=== PATIENT | male | born 1940 | race Caucasian/White ===

== ENCOUNTER 2020-04-18 14:44 | Inpatient (IN) | payer MEDICARE ==
--- NOTE | 2020-04-18 15:41 | ED ---
Recheck HPI - General Source: patient Mode of arrival: EMS Limitations: physical limitation <Alicia Kimble - Last Filed: 04/18/20 18:19> <Moe Jamesah Mercedez - Last Filed: 04/19/20 13:04> - General Chief Complaint: Recheck/Abnormal Lab/Rx Stated Complaint: Acute renal failure Time Seen by Provider: 04/18/20 14:47 - History of Present Illness Initial Comments: 79-year-old male presenting as transfer for acute kidney injury, elevated troponin from [facility]. Patient states initially presented to [facility] for pain all over. He states is mostly is his legs and this is occurred before. He states it occurs in episodes. Denies a low back pain urinary retention or water, bowel incontinence. Patient denies a loss of sensation of the lower legs he states that they're not weak but they're very painful when he walks. Patient denies a coolness or pallor of the extremities. He denies any swelling he denies any chest pain shortness of breath nausea vomiting abdominal pain. Patient did have a CT of his chest abdomen pelvis at [place] which revealed no acute findings. Patient was found to have a white count of 16.4 hemoglobin 12.7 platelets 252 glucose 111 creatinine is 2.9, GFR of 21 calcium 8.3 anion gap of 16 CO2 14 with normal liver studies. Troponin 0.10. Urinalysis was not concerning for infection. Patient was placed on bicarb and dextrose drip? (Alicia Kimble) - Related Data Home Medications Medication Instructions Recorded Confirmed Albuterol Sulfate [Ventolin HFA] 2 puff INHALATION RT-QID PRN 04/18/20 04/18/20 Atorvastatin Calcium [Lipitor] 20 mg PO HS 04/18/20 04/18/20 Carvedilol [Coreg] 6.25 mg PO BID 04/18/20 04/18/20 Gabapentin [Neurontin] 200 mg PO TID PRN 04/18/20 04/18/20 Lisinopril [Zestril] 10 mg PO DAILY 04/18/20 04/18/20 Umeclidinium Brm/Vilanterol Tr 1 puff INHALATION RT-DAILY 04/18/20 04/18/20 [Anoro Ellipta 62.5-25 Mcg INH] amLODIPine [Norvasc] 10 mg PO DAILY 04/18/20 04/18/20 Allergies Allergy/AdvReac Type Severity Reaction Status Date / Time Penicillins Allergy Unknown Verified 04/18/20 15:57 Sulfa (Sulfonamide Allergy Unknown Verified 04/18/20 15:57 Antibiotics) Review of Systems ROS Other: All systems not noted in ROS Statement are negative. <Alicia Kimble - Last Filed: 04/18/20 18:19> ROS Other: All systems not noted in ROS Statement are negative. <Janine James Mercedez - Last Filed: 04/19/20 13:04> ROS Statement: Those systems with pertinent positive or pertinent negative responses have been documented in the HPI. Past Medical History Past Medical History: COPD, CVA/TIA, Hyperlipidemia, Hypertension, Renal Disease Additional Past Medical History / Comment(s): chronic back pain History of Any Multi-Drug Resistant Organisms: None Reported Past Surgical History: Unable to Obtain Past Psychological History: No Psychological Hx Reported Smoking Status: Current every day smoker Past Alcohol Use History: None Reported Past Drug Use History: None Reported <Alicia Kimble - Last Filed: 04/18/20 18:19> General Exam Limitations: physical limitation <Alicia Kimble - Last Filed: 04/18/20 18:19> - General Exam Comments Initial Comments: General: The patient is awake and alert, in no distress Eye: +3 mm pupils are equal, round and reactive to light, extra-ocular movements are intact. No nystagmus. There is normal conjunctiva bilaterally. No signs of icterus. Ears, nose, mouth and throat: There are moist mucous membranes and no oral lesions. Neck: The neck is supple, there is no tenderness or JVD. Cardiovascular: There is a regular rate and rhythm. No murmur, rub or gallop is appreciated. Respiratory: Lungs are clear to auscultation, respirations are non-labored, breath sounds are equal. No wheezes, stridor, rales, or rhonchi. Gastrointestinal: Soft, non-distended, non-tender abdomen without masses or organomegaly noted. There is no rebound or guarding present. Musculoskeletal: No current pain in the LE b/l. No LE edema. Normal ROM, no tenderness. Strength 5/5. Sensation intact. Radial and DP pulses equal bilaterally 2+. Neurological: A&O x 3. CN II-XII intact, There are no obvious motor or sensory deficits. Coordination appears grossly intact. Speech is normal. Skin: Skin is warm and dry and no rashes or lesions are noted. Psychiatric: Cooperative, appropriate mood & affect, normal judgment. (Alicia Kimble) Course Vital Signs 04/18/20 04/18/20 14:54 17:27 Temperature 97.4 F L 97.8 F Pulse Rate 85 74 Respiratory 16 16 Rate Blood Pressure 152/82 129/74 O2 Sat by Pulse 96 96 Oximetry Medical Decision Making <Alicia Kimble - Last Filed: 04/18/20 18:19> - Lab Data Result diagrams: 04/19/20 09:09 04/19/20 09:09 <Janine James - Last Filed: 04/19/20 13:04> - Medical Decision Making Trop remained within similar values/decreased slightly. Concern for cardiorenal syndrome with elevated BNP. Favoring towards renal dysfunction. Will lightly hydrate patient as patietn shows no evidence of effusion on CXR or extremity f indings. Patient will be admitted for further consultation and monit oring/treatment. Nicol James agreeable to care plan and admission. (Alicia Kimble) I was available for consultation in the emergency department. The history and physical exam were done by the midlevel provider. I was consulted for this patients care. I reviewed the case with the midlevel provider and based on their presentation of the patient, I agree with the assessment, medical decision making and plan of care as documented. I reviewed the patients chart and evaluated him myself. Discussed patients care with Dr. Robbins for admission. Chart was dictated using [employer] dictation software. Attempts were made to correct any dictation errors however some typographical errors may persist. Patient was seen during a national state of emergency due to the Covid-19 pandemic. (Janine James) - Lab Data Lab Results 04/18/20 04/18/20 04/18/20 Range/Units 15:51 16:18 16:18 Creatine Kinase 55 (55-170) U/L Troponin I 0.095 H* (0.000-0.034) ng/mL NT-Pro-B Natriuret Pep 07200 pg/mL Disposition Is patient prescribed a controlled substance at d/c from ED?: No Time of Disposition: 15:56 Decision to Admit Reason: Admit from EC Decision Date: 04/18/20 Decision Time: 15:56 <Alicia Kimble - Last Filed: 04/18/20 18:19> <Janine James - Last Filed: 04/19/20 13:04> Clinical Impression: NELI (acute kidney injury), Acidosis, Bilateral leg pain, Chronic pain, Elevated troponin Disposition: ADMITTED IP TO THIS HOSP Condition: Stable
[2020-04-18] MEDS ORDERED: NALOXONE 0.4 MG/ML 1 ML VIAL IV PRN (15:43)
--- NOTE | 2020-04-18 17:25 | XR ---
EXAMINATION TYPE: XR chest 1V portable DATE OF EXAM: 04/18/2020 COMPARISON: NONE HISTORY: Leg pain TECHNIQUE: 2 views FINDINGS: Heart is normal in size. There is no heart failure. Costophrenic angles are clear. There ar e no hilar masses. Bony thorax is intact. IMPRESSION: No active cardiopulmonary disease.
[2020-04-18] MEDS: SODIUM CHLORIDE 0.9% 1,000 ML IV SCH (17:54)
[2020-04-18] MEDS ORDERED: HYDROcodone/APAP 5-325MG 1 EACH TAB PO PRN (18:23)
[2020-04-18] MEDS ORDERED: ACETAMINOPHEN TAB 325 MG TAB PO PRN (18:23)
[2020-04-18] MEDS ORDERED: ALBUTEROL NEBULIZED 2.5 MG/3 ML INHALATION PRN (18:25)
--- NOTE | 2020-04-18 18:39 | P.HPIM ---
History of Present Illness H&P Date: 04/18/20 79-year-old male with PMH of CAD, COPD, dyslipidemia, chronic kidney disease, hypertension, TIA initially presented to [facility] for generalized pain. His son is at bedside and providing majority of the history. Son reports the patient had similar episode 8 months ago with generalized pain and weakness which improved after 1 week. Patient states his pain is localized to his lower extremities described as myalgias. He denies any headaches, lower extremity edema, nausea or vomiting, fever or chills, cough, chest pain, shortness of breath, palpitations, changes in urination or bowel habits. No changes in appetite or weight. He underwent extensive evaluation in the ED at [facility]. His blood pressure is elevated at 158/93. Urinalysis was relatively benign. Lactic acid was negative. VBG showed pH of 7.03. His bicarb was 14. His BUN was 41, creatinine of 2.9. Patient also had a leukocytosis of 16.4. [place] CT was done which showed no acute findings, large bowel wall thickening. Patient was started on bicarb drip and transferred to [facility] for further workup. He had elevated troponins of 0.1. Patient is admitted for worsening renal failure and elevated troponins with cardiology and nephrology on consult. Review of Systems Pertinent positives and negatives as discussed in HPI, a complete review of systems was performed and all other systems are negative. Past Medical History Past Medical History: COPD, CVA/TIA, Hyperlipidemia, Hypertension, Renal Disease Additional Past Medical History / Comment(s): chronic back pain History of Any Multi-Drug Resistant Organisms: None Reported Past Surgical History: Unable to Obtain Past Psychological History: No Psychological Hx Reported Smoking Status: Current every day smoker Past Alcohol Use History: None Reported Past Drug Use History: None Reported Medications and Allergies Home Medications Medication Instructions Recorded Confirmed Type Albuterol Sulfate [Ventolin HFA] 2 puff INHALATION RT-QID PRN 04/18/20 04/18/20 History Atorvastatin Calcium [Lipitor] 20 mg PO HS 04/18/20 04/18/20 History Carvedilol [Coreg] 6.25 mg PO BID 04/18/20 04/18/20 History Gabapentin [Neurontin] 200 mg PO TID PRN 04/18/20 04/18/20 History Lisinopril [Zestril] 10 mg PO DAILY 04/18/20 04/18/20 History Umeclidinium Brm/Vilanterol Tr 1 puff INHALATION RT-DAILY 04/18/20 04/18/20 History [Anoro Ellipta 62.5-25 Mcg INH] amLODIPine [Norvasc] 10 mg PO DAILY 04/18/20 04/18/20 History Allergies Allergy/AdvReac Type Severity Reaction Status Date / Time Penicillins Allergy Unknown Verified 04/18/20 15:57 Sulfa (Sulfonamide Allergy Unknown Verified 04/18/20 15:57 Antibiotics) Physical Exam Vitals: Vital Signs Temp Pulse Resp BP Pulse Ox 04/18/20 17:27 97.8 F 74 16 129/74 96 04/18/20 14:54 97.4 F L 85 16 152/82 96 Intake and Output 04/18/20 04/18/20 04/18/20 06:59 14:59 22:59 Other: Weight 50.802 kg General: [non toxic], [no distress], [appears at stated age] Derm: [warm], [dry] Head: [atraumatic], [normocephalic], [symmetric] Eyes: [EOMI], [no lid lag], [anicteric sclera] Mouth: [no lip lesion], [mucus membranes moist] Cardiovascular: [S1S2 reg], [no murmur], [positive posterior tibial pulse bilateral], Lungs: [CTA bilateral], [no rhonchi, no rales] , [no accessory muscle use] Abdominal: [soft], [ nontender to palpation], [no guarding], [no appreciable organomegaly] Ext: [no gross muscle atrophy], [no edema], [no contractures] Neuro: [ CN II-XI grossly intact], [no focal neuro deficits] Psych: [Alert], [oriented], [appropriate affect] Results Labs: Abnormal Lab Results - Last 24 Hours (Table) 04/18/20 Range/Units 15:51 Troponin I 0.095 H* (0.000-0.034) ng/mL Assessment and Plan Assessment: Troponin elevation Acute kidney injury on chronic kidney disease with metabolic acidosis Leukocytosis Hypertension COPD History of CAD/TIA Patient with elevated troponins of 0.1, 0.095 on repeat. Likely troponin leak from acute kidney injury. Chest x-ray is negative. Plans: Trend troponin/EKG to rule out ACS. Telemetry monitoring. Continue Lipitor. Start aspirin 81 mg by mouth daily. Follow-up echocardiogram. Follow-up cardiology consultation. Creatinine 2.9, bicarb 14. Post bicarb drip. Plans: Obtain renal ultrasound. Repeat BMP tomorrow morning. Avoid nephrotoxins. Patient is a leukocytosis of 16.5. Unknown etiology. No obvious signs of infection. Plans: Continue to monitor. Repeat CBC tomorrow morning. BP 129/74. Plans: Continue amlodipine and Coreg. Monitor vitals, adjust medications if necessary. Stable. Plans: Albuterol inhaler as needed. Continue formoterol. Plans: Continue aspirin and Lipitor. DVT prophylaxis: [Heparin] Discussed with: [Patient and son] Anticipated discharge: [2-3 days] Anticipated discharge place: [Home] A total of [45] minutes was spent on the care of this complex patient more than 50% of the time was spent in counseling and care coordination. Patient names his son Ghassan decision maker if he can't make decisions for himself. Patient would like to be no code. CODE STATUS was discussed with son at bedside.
[2020-04-18] MEDS: NICOTINE 21MG/24HR PATCH TRANSDERM SCH (18:58)
[2020-04-18] MEDS: carvediloL 6.25 MG TAB PO SCH (19:33)
[2020-04-18] MEDS: HEPARIN SODIUM,PORCINE 5,000 UNIT/ML 1 ML VIAL SQ SCH (19:34)
[2020-04-18] MEDS: ATORVASTATIN 20 MG TAB PO SCH (19:34)
[2020-04-18] MEDS: IPRATROPIUM 0.5 MG/2.5 ML NEBU INHALATION SCH (19:45)
[2020-04-18] MEDS: FORMOTEROL FUMARATE 20 MCG/2 ML NEBU INHALATION SCH (19:45)
--- NOTE | 2020-04-18 22:29 | US ---
EXAMINATION TYPE: US kidneys/renal and bladder DATE OF EXAM: 04/18/2020 COMPARISON: NONE CLINICAL HISTORY: kidney injury. abnormal enzymes, gianna EXAM MEASUREMENTS: Right Kidney: 8.3 x 3.1 x 4.4 cm Left Kidney: not seen Right Kidney: small in size, midpole cyst seen = 1.3cm Left Kidney: unable to visualize due to gas even after rolling patient RLD Bladder: wnl IMPRESSION: Urinary bladder is sonolucent. Right kidney shows some cortical thinning. There is small cortical cys t. Left kidney was not evaluated. Right kidney shows no sign of obstruction.
[2020-04-19] MEDS: carvediloL 6.25 MG TAB PO SCH ×2 (06:25→17:15)
[2020-04-19] MEDS: IPRATROPIUM 0.5 MG/2.5 ML NEBU INHALATION SCH ×4 (07:26→19:01)
[2020-04-19] MEDS: FORMOTEROL FUMARATE 20 MCG/2 ML NEBU INHALATION SCH ×2 (07:26→19:01)
[2020-04-19] MEDS: amLODIPine 10 MG TAB PO SCH (08:10)
[2020-04-19] MEDS: HEPARIN SODIUM,PORCINE 5,000 UNIT/ML 1 ML VIAL SQ SCH ×2 (08:10→20:26)
[2020-04-19] MEDS: NICOTINE 21MG/24HR PATCH TRANSDERM SCH (08:10)
[2020-04-19] MEDS: ASPIRIN 81 MG PO SCH (08:10)
--- NOTE | 2020-04-19 09:21 | P.CRDCN ---
History of Present Illness Consult date: 04/19/20 Reason for Consult (text): Elevated troponins Chief complaint: Weakness History of present illness: History of present illness: This is a 79-year-old male with past medical history of CAD/AL and denies PCI, COPD, dyslipidemia, chronic kidney disease, hypertension, multiple TIA. Patient states that he has had generalized pain and weakness for several days. It was making it difficult for him to walk and he was using 2 canes to ambulate. He finally called for help as he was having trouble getting around his apartment with significant pain in his feet, pain all over his body and generalized weakness. He states he has been eating and drinking without difficulty. Patient initially presented to [facility]. He underwent a CAT scan of the chest that revealed a 10 mm spiculated pleuroparenchymal thickening in the right upper lobe baby due to scarring. No acute finding. CAT scan of the abdomen and pelvis without contrast showed no acute finding. Large bowel wall thickening with surrounding inflammation due to 2 under distention. Patient was given morphine and Solu-Medrol and patient experienced improvement of his generalized pain. WBC was 16.4 urinalysis negative for infection. Lactic acid 0.8. Venous pH 7.03. BUN 41 and creatinine 2.9. Sodium 135, potassium 4.1, chloride 109, CO2 14. Liver function tests normal. WBC 16.4, hemoglobin 12.7, platelet count 252. Troponin 0.1. Sed rate 63 Blood pressure 249/157. Patient was started on a bicarb drip and transferred to [facility] for non-ion gap acidosis, acute kidney injury and hypertensive urgency. EKG normal sinus rhythm with left ventricular hypertrophy. Troponin 0.095, 0.097, 0.098. ProBNP 1 18,600. Chest x-ray shows no acute cardiopulmonary disease. Renal ultrasound reveals urinary bladder is sonolucent. Right kidney shows cortical thinning. Small cortical cyst. Left kidney was not evaluated. Right kidney shows no sign of obstruction. Patient is an active smoker. Review Of Systems: Constitutional: No fever, no chills. Reports weakness, reports fatigue reports lethargy. EENT: No headache. No dizziness. Lungs: No shortness of breath, cough, no sputum production. No wheezing. Cardiovascular: No chest pain, no lower extremity edema. No palpitations. No paroxysmal nocturnal dyspnea. No orthopnea. No lightheadedness or dizziness. No syncopal episodes. Abdominal: No abdominal pain. No nausea, vomiting. No diarrhea. No con stipation. No bloody or tarry stools.. No loss of appetite. Genitourinary: No urinary retention. Musculoskeletal: Reports myalgias. Reports muscle weakness, reports gait dysfunction. Integumentary: No wounds, no lesions. Neurologic: No aphasia. No facial droop. No change in mentation. No head injury. No headache. Psychiatric: No depression. Endocrine: No abnormal blood sugars. Physical examination: Gen: This is a 79-year-old male. Patient is seen up in the end to the bed and eating breakfast. Noted tremors of bilateral upper extremities. VS: 138/88, afebrile, heart rate 77, pulse ox 93% on room air HEENT: Head is atraumatic, normocephalic. Pupils equal, round. Sclerae is anicteric. Heart appearing. NECK: Supple. No JVD. No lymphadenopathy. No thyromegaly. LUNGS: Clear to auscultation. No wheezes or rhonchi. No intercostal retractions. No accessory muscle usage. HEART: Regular rate and rhythm. No murmur. ABDOMEN: Soft. Bowel sounds are present. No masses. No tenderness. EXTREMITIES: No pedal edema. No calf tenderness. Dorsalis pedis +2 bilaterally. NEUROLOGICAL: Patient is awake, alert and oriented x3. Cranial nerves 2 through 12 are grossly intact. Assessment: Elevated troponins secondary to acute kidney injury, no chest pain, acute coronary syndrome ruled out and no further intervention is planned and continue medical management Acute kidney injury and chronic kidney disease with metabolic acidosis Leukocytosis Hypertensive emergency Hyperlipidemia History of coronary artery disease and TIA COPD, tobacco use Possible history of Aortic aneurysm with stenting Plan: Blood pressures are much improved, continue amlodipine 10 mg daily, Coreg 6.25 mg twice daily Continue Lipitor 20 mg at bedtime Obtain 2-D echocardiogram and Doppler study to assess cardiac structure and function Further recommendations to follow based upon clinical course Thank you kindly for this consultation. Nurse practitioner note has been reviewed, I agree with documented findings and plan of care. Patient was seen and examined. Past Medical History Past Medical History: COPD, CVA/TIA, Hyperlipidemia, Hypertension, Renal Disease Additional Past Medical History / Comment(s): chronic back pain History of Any Multi-Drug Resistant Organisms: None Reported Past Surgical History: Unable to Obtain Past Psychological History: No Psychological Hx Reported Smoking Status: Current every day smoker Past Alcohol Use History: None Reported Past Drug Use History: None Reported Medications and Allergies Home Medications Medication Instructions Recorded Confirmed Type Albuterol Sulfate [Ventolin HFA] 2 puff INHALATION RT-QID PRN 04/18/20 04/18/20 History Atorvastatin Calcium [Lipitor] 20 mg PO HS 04/18/20 04/18/20 History Carvedilol [Coreg] 6.25 mg PO BID 04/18/20 04/18/20 History Gabapentin [Neurontin] 200 mg PO TID PRN 04/18/20 04/18/20 History Lisinopril [Zestril] 10 mg PO DAILY 04/18/20 04/18/20 History Umeclidinium Brm/Vilanterol Tr 1 puff INHALATION RT-DAILY 04/18/20 04/18/20 History [Anoro Ellipta 62.5-25 Mcg INH] amLODIPine [Norvasc] 10 mg PO DAILY 04/18/20 04/18/20 History Allergies Allergy/AdvReac Type Severity Reaction Status Date / Time Penicillins Allergy Unknown Verified 04/18/20 15:57 Sulfa (Sulfonamide Allergy Unknown Verified 04/18/20 15:57 Antibiotics) Physical Exam Vitals: Vital Signs Temp Pulse Pulse Resp BP BP Pulse Ox 04/19/20 07:48 70 04/19/20 07:38 19 04/19/20 07:37 74 04/19/20 07:36 78 04/19/20 07:28 72 04/19/20 03:39 97.7 F 78 19 137/70 95 04/18/20 23:44 97.9 F 72 19 120/72 94 L 04/18/20 20:01 77 04/18/20 20:00 99.1 F 83 19 156/88 97 04/18/20 19:54 76 04/18/20 19:53 74 04/18/20 19:49 74 04/18/20 17:27 97.8 F 74 16 129/74 96 04/18/20 14:54 97.4 F L 85 16 152/82 96 Intake and Output 04/18/20 04/19/20 04/19/20 22:59 06:59 14:59 Intake Total 450 Balance 450 Intake: Intake, IV Titration 450 Amount Sodium Chloride 0.9% 1, 450 000 ml @ 50 mls/hr IV . Q20H [facility] Rx#:[id number] Other: Voiding Method Toilet Toilet Urinal Urinal # Voids 0 1 Weight 50.802 kg 51.5 kg Results 04/19/20 09:09 04/19/20 09:09 Cardiac Enzymes 04/18/20 04/18/20 04/18/20 Range/Units 15:51 19:17 22:34 Troponin I 0.095 H* 0.097 H* 0.098 H* (0.000-0.034) ng/mL Current Medications Generic Name Dose Route Start Last Admin Trade Name Freq PRN Reason Stop Dose Admin Acetaminophen 650 mg 04/18/20 18:23 Acetaminophen Tab 325 Mg Tab PO Q6HR PRN Mild Pain or Fever > 100.5 Hydrocodone Bitart/Acetaminophen 1 each 04/18/20 18:23 Hydrocodone/Apap 5-325mg 1 Each Tab PO Q4HR PRN Moderate Pain Albuterol Sulfate 2.5 mg 04/18/20 18:25 Albuterol Nebulized 2.5 Mg/3 Ml INHALATION RT-QID PRN Shortness Of Breath Amlodipine Besylate 10 mg 04/19/20 09:00 Amlodipine 10 Mg Tab PO DAILY [facility] Aspirin 81 mg 04/19/20 09:00 Aspirin 81 Mg PO DAILY [facility] Atorvastatin Calcium 20 mg 04/18/20 21:00 04/18/20 19:34 Atorvastatin 20 Mg Tab PO 20 mg HS [facility] Administration Carvedilol 6.25 mg 04/18/20 21:00 04/19/20 06:25 Carvedilol 6.25 Mg Tab PO 6.25 mg AC-BID [facility] Administration Formoterol Fumarate 20 mcg 04/18/20 20:00 04/19/20 07:26 Formoterol Fumarate 20 Mcg/2 Ml Nebu INHALATION 20 mcg RT-BID [facility] Administration Heparin Sodium (Porcine) 5,000 unit 04/18/20 21:00 04/18/20 19:34 Heparin Sodium,Porcine 5,000 Unit/Ml 1 Ml Vial SQ 5,000 unit Q12HR [facility] Administration Sodium Chloride 1,000 mls @ 50 mls/hr 04/18/20 17:45 04/18/20 17:54 Saline 0.9% IV 50 mls/hr .Q20H [facility] Administration Ipratropium [place] 0.5 mg 04/18/20 20:00 04/19/20 07:26 Ipratropium 0.5 Mg/2.5 Ml Nebu INHALATION 0.5 mg RT-QID [facility] Administration Naloxone HCl 0.2 mg 04/18/20 15:43 Naloxone 0.4 Mg/Ml 1 Ml Vial IV Q2M PRN Opioid Reversal Nicotine 1 patch 04/18/20 19:00 04/18/20 18:58 Nicotine 21mg/24hr Patch TRANSDERM 1 patch DAILY [facility] Administration Intake and Output 04/18/20 04/19/20 04/19/20 22:59 06:59 14:59 Intake Total 450 Balance 450 Intake: Intake, IV Titration 450 Amount Sodium Chloride 0.9% 1, 450 000 ml @ 50 mls/hr IV . Q20H [facility] Rx#:[id number] Other: Voiding Method Toilet Toilet Urinal Urinal # Voids 0 1 Weight 50.802 kg 51.5 kg
[2020-04-19 09:23] LABS: Anisocytosis Slight; Basophils % (A) 0 %; Eosinophils # (A) 0.1 k/uL (0-0.7); Eosinophils % (A) 1 %; HCT 30.6 % (39.0-53.0); HGB 9.6 gm/dL (13.0-17.5); Lymphocytes # (A) 0.7 k/uL (1.0-4.8); Lymphocytes % (A) 4 %; MCHC 31.5 g/dL (31.0-37.0); MCV 85.8 fL (80.0-100.0); Mean Platelet Volume 8.5; Monocytes # (A) 0.6 k/uL (0-1.0); Monocytes % (A) 4 %; Neutrophils # (A) 13.9 k/uL (1.3-7.7); Neutrophils % (A) 91 %; Platelet Count 196 k/uL (150-450); RBC 3.57 m/uL (4.30-5.90); RDW 16.2 % (11.5-15.5); WBC 15.4 k/uL (3.8-10.6)
[2020-04-19 09:47] LABS: Albumin 2.9 g/dL (3.5-5.0); Calcium 8.1 mg/dL (8.4-10.2); Magnesium 1.7 mg/dL (1.6-2.3); Phosphorus 4.9 mg/dL (2.5-4.5); Potassium 3.8 mmol/L (3.5-5.1); Total Bilirubin 0.6 mg/dL (0.2-1.3); Total Protein 5.3 g/dL (6.3-8.2)
--- NOTE | 2020-04-19 11:09 | P.NPCON ---
History of Present Illness - Reason for Consult Consult date: 04/19/20 acute renal failure - Chief Complaint acute and possibly chronic kidney disease - History of Present Illness this is 79-year-old male, seen in consultation because of an elevated creatinine of 2.9, acidosis with a venous pH of 7.03 and a bicarb of 14 at an outside hospital. He is a poor historian but is alert and oriented He was seen at an outside hospital with generalized aches and pains and weakness for 1 week. He also sees that he has had loose stools for the last few months but is unable to give any details. No abdominal pain no nausea vomiting. No dizziness shortness of breath cough fever chills Patient is known with history of COPD is CVA, In the outside hospital his pH on a venous blood gas was supposedly 7.03, with a bicarb of 14. Creatinine was 2.9 a craig computed tomography scan was negative supposedly except for large bowel wall thickening. Patient was started on bicarbonate drip and transferred here to [facility] Currently patient is a is feeling much better the aches and pains have resolved. He is on IV fluids normal saline Denies history of kidney disease. Ultrasound shows solitary right kidney which is small at 8.3 cm and the left kidney could not be visualized. Patient denies having any surgery on his kidneys. No history of kidney stones or prostate is up Past Medical History Past Medical History: COPD, CVA/TIA, Hyperlipidemia, Hypertension, Renal Disease Additional Past Medical History / Comment(s): chronic back pain History of Any Multi-Drug Resistant Organisms: None Reported Past Surgical History: Unable to Obtain Past Psychological History: No Psychological Hx Reported Smoking Status: Current every day smoker Past Alcohol Use History: None Reported Past Drug Use History: None Reported Medications and Allergies Home Medications Medication Instructions Recorded Confirmed Type Albuterol Sulfate [Ventolin HFA] 2 puff INHALATION RT-QID PRN 04/18/20 04/18/20 History Atorvastatin Calcium [Lipitor] 20 mg PO HS 04/18/20 04/18/20 History Carvedilol [Coreg] 6.25 mg PO BID 04/18/20 04/18/20 History Gabapentin [Neurontin] 200 mg PO TID PRN 04/18/20 04/18/20 History Lisinopril [Zestril] 10 mg PO DAILY 04/18/20 04/18/20 History Umeclidinium Brm/Vilanterol Tr 1 puff INHALATION RT-DAILY 04/18/20 04/18/20 History [Anoro Ellipta 62.5-25 Mcg INH] amLODIPine [Norvasc] 10 mg PO DAILY 04/18/20 04/18/20 History Allergies Allergy/AdvReac Type Severity Reaction Status Date / Time Penicillins Allergy Unknown Verified 04/18/20 15:57 Sulfa (Sulfonamide Allergy Unknown Verified 04/18/20 15:57 Antibiotics) Physical Exam Vitals: Vital Signs Temp Pulse Pulse Resp BP BP Pulse Ox 04/19/20 08:00 97.9 F 77 18 138/88 93 L 04/19/20 07:48 70 04/19/20 07:38 19 04/19/20 07:37 74 04/19/20 07:36 78 04/19/20 07:28 72 04/19/20 03:39 97.7 F 78 19 137/70 95 04/18/20 23:44 97.9 F 72 19 120/72 94 L 04/18/20 20:01 77 04/18/20 20:00 99.1 F 83 19 156/88 97 04/18/20 19:54 76 04/18/20 19:53 74 04/18/20 19:49 74 04/18/20 17:27 97.8 F 74 16 129/74 96 04/18/20 14:54 97.4 F L 85 16 152/82 96 Intake and Output 04/18/20 04/19/20 04/19/20 22:59 06:59 14:59 Intake Total 450 Balance 450 Intake: Intake, IV Titration 450 Amount Sodium Chloride 0.9% 1, 450 000 ml @ 50 mls/hr IV . Q20H [facility] Rx#:[id number] Other: Voiding Method Toilet Toilet Urinal Urinal # Voids 0 1 Weight 50.802 kg 51.5 kg on examination is awake alert oriented 3 He is somewhat emaciated HEENT exam no JVP neck is supple no facial asymmetry Lungs are significant for somewhat diminished air entry but no adventitious sounds are heard Heart sounds unremarkable no murmur rub gallop Abdomen soft nontender no organomegaly ascites masses Extremity exam was no edema Neurologically awake alert oriented 3 but poor memory and poor historian and no asterixis No muscle aches andno muscle tenderness Results - Lab Results Most recent lab results Calcium 8.1 mg/dL (8.4-10.2) L 04/19/20 09:09 Phosphorus 4.9 mg/dL (2.5-4.5) H 04/19/20 09:09 Magnesium 1.7 mg/dL (1.6-2.3) 04/19/20 09:09 04/19/20 09:09 04/19/20 09:09 Assessment and Plan Assessment: impression 1.non-gap acidosis likely from diarrhea. 2. Elevated creatinine at 2.8, no previous creatinines available. Likely chronic kidney disease given a small 8.3 cm right kidney and left kidney is absent are not seen. 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 3. Generalized aches and pains rule out thyroid and adrenal insufficiency 4. Rule out rhabdomyolysis 5. loose stools rule out colitis. 6. Anemia of chronic kidney disease rule out iron deficiency Recommendation 1. Check serum cortisol and TSH 2.continue IV normal saline at 50 an hour 3. Workup for colitis 4. Start sodium bicarbonate by mouth 650 4 times a day 5. Check iron saturation thank you for this consultation, will continue to follow closely
--- NOTE | 2020-04-19 12:10 | P.PN ---
Subjective Progress Note Date: 04/19/20 patient was seen and examined. No acute events overnight. Generalized pain has resolved. He denies any chest pain, shortness breath or palpitations. No nausea or vomiting. No fever or chills. Objective - Vital Signs Vital signs: Vital Signs Temp 97.9 F 04/19/20 08:00 Pulse 74 04/19/20 11:21 Resp 18 04/19/20 08:00 BP 138/88 04/19/20 08:00 Pulse Ox 93 L 04/19/20 08:00 Intake & Output 04/18/20 04/19/20 04/19/20 18:59 06:59 18:59 Intake Total 450 Balance 450 Weight 50.802 kg 51.5 kg Intake: Intake, IV Titration 450 Amount Sodium Chloride 0.9% 1, 450 000 ml @ 50 mls/hr IV . Q20H [facility] Rx#:[id number] Other: Voiding Method Toilet Urinal # Voids 1 - Exam General: [non toxic], [no distress], [appears at stated age] Derm: [warm], [dry] Head: [atraumatic], [normocephalic], [symmetric] Eyes: [EOMI], [no lid lag], [anicteric sclera] Mouth: [no lip lesion], [mucus membranes moist] Cardiovascular: [S1S2 reg], [no murmur], [positive posterior tibial pulse bilateral], Lungs: [CTA bilateral], [no rhonchi, no rales] , [no accessory muscle use] Abdominal: [soft], [ nontender to palpation], [no guarding], [no appreciable organomegaly] Ext: [no gross muscle atrophy], [no edema], [no contractures] Neuro: [ CN II-XI grossly intact], [no focal neuro deficits] Psych: [Alert], [oriented], [appropriate affect] - Labs CBC & Chem 7: 04/19/20 09:09 04/19/20 09:09 Labs: Abnormal Lab Results - Last 24 Hours (Table) 04/18/20 04/18/20 04/18/20 Range/Units 15:51 19:17 22:34 WBC (3.8-10.6) k/uL RBC (4.30-5.90) m/uL Hgb (13.0-17.5) gm/dL Hct (39.0-53.0) % RDW (11.5-15.5) % Neutrophils # (1.3-7.7) k/uL Lymphocytes # (1.0-4.8) k/uL Sodium (137-145) mmol/L Chloride (98-107) mmol/L Carbon Dioxide (22-30) mmol/L BUN (9-20) mg/dL Creatinine (0.66-1.25) mg/dL Glucose (74-99) mg/dL Calcium (8.4-10.2) mg/dL Phosphorus (2.5-4.5) mg/dL AST (17-59) U/L Troponin I 0.095 H* 0.097 H* 0.098 H* (0.000-0.034) ng/mL Total Protein (6.3-8.2) g/dL Albumin (3.5-5.0) g/dL 04/19/20 04/19/20 Range/Units 09:09 09:09 WBC 15.4 H (3.8-10.6) k/uL RBC 3.57 L (4.30-5.90) m/uL Hgb 9.6 L (13.0-17.5) gm/dL Hct 30.6 L (39.0-53.0) % RDW 16.2 H (11.5-15.5) % Neutrophils # 13.9 H (1.3-7.7) k/uL Lymphocytes # 0.7 L (1.0-4.8) k/uL Sodium 136 L (137-145) mmol/L Chloride 109 H (98-107) mmol/L Carbon Dioxide 18 L (22-30) mmol/L BUN 47 H (9-20) mg/dL Creatinine 2.80 H (0.66-1.25) mg/dL Glucose 148 H (74-99) mg/dL Calcium 8.1 L (8.4-10.2) mg/dL Phosphorus 4.9 H (2.5-4.5) mg/dL AST 14 L (17-59) U/L Troponin I (0.000-0.034) ng/mL Total Protein 5.3 L (6.3-8.2) g/dL Albumin 2.9 L (3.5-5.0) g/dL Assessment and Plan Assessment: Troponin elevation Acute kidney injury on chronic kidney disease with metabolic acidosis Leukocytosis Hypertension COPD History of CAD/TIA Patient with elevated troponins of 0.1, 0.095 on repeat. Likely troponin leak from acute kidney injury. Chest x-ray is negative. Plans: ACS ruled out. Tele metry monitoring. Continue Lipitor. Start aspirin 81 mg by mouth daily. Follow-up echocardiogram. Follow-up cardiology consultation. Creatinine 2.9-2.8, bicarb 14-18. Post bicarb drip. Renal ultrasound shows renal disease. Plans: Started on sodium bicarb supplements. Repeat BMP tomorrow morning. Avoid nephrotoxins. Continue normal saline at 50 mL per hour. Patient is a leukocytosis of 16.5-15.4. Unknown etiology. No obvious signs of infection. Plans: Continue to monitor. Repeat CBC tomorrow morning. BP 138/88. Plans: Continue amlodipine and Coreg. Monitor vitals, adjust medications if necessary. Stable. Plans: Albuterol inhaler as needed. Continue formoterol. Plans: Continue aspirin and Lipitor. DVT prophylaxis: [Heparin] Discussed with: [Patient and son] Anticipated discharge: [2-3 days] Anticipated discharge place: [Home] A total of [45] minutes was spent on the care of this complex patient more than 50% of the time was spent in counseling and care coordination. Patient names his son Ghassan decision maker if he can't make decisions for himself. Patient would like to be no code. CODE STATUS was discussed with son at bedside. [Generalized pain resolved. Echocardiogram pending. Repeat BMP to assess acidosis and renal function tomorrow morning. Anticipate DC home tomorrow if patient continues to show improvement.]
[2020-04-19] MEDS: SODIUM CHLORIDE 0.9% 1,000 ML IV SCH (12:26)
[2020-04-19] MEDS: SODIUM BICARBONATE TAB 650 MG TAB PO SCH ×3 (12:28→21:38)
[2020-04-19 13:03] LABS: Uric Acid 6.5 mg/dL (3.5-8.5)
[2020-04-19 14:02] VITALS: BMI 16.7
[2020-04-19 15:02] LABS: T4, Free (Free Thyroxine) 1.39 ng/dL (0.78-2.19)
[2020-04-19] MEDS: ATORVASTATIN 20 MG TAB PO SCH (20:26)
[2020-04-19 22:54] LABS: % Iron Saturation 3.92 (15.00-50.00)
[2020-04-20] MEDS: carvediloL 6.25 MG TAB PO SCH (06:36)
[2020-04-20] MEDS: IPRATROPIUM 0.5 MG/2.5 ML NEBU INHALATION SCH ×2 (08:41→11:58)
[2020-04-20] MEDS: FORMOTEROL FUMARATE 20 MCG/2 ML NEBU INHALATION SCH (08:41)
[2020-04-20 08:45] LABS: Anisocytosis Slight; Basophils % (A) 0 %; Eosinophils # (A) 0.1 k/uL (0-0.7); Eosinophils % (A) 1 %; HCT 32.2 % (39.0-53.0); HGB 10.2 gm/dL (13.0-17.5); Lymphocytes # (A) 1.2 k/uL (1.0-4.8); Lymphocytes % (A) 12 %; MCH 27.4 pg (25.0-35.0); MCHC 31.7 g/dL (31.0-37.0); MCV 86.2 fL (80.0-100.0); Mean Platelet Volume 7.6; Monocytes # (A) 0.5 k/uL (0-1.0); Monocytes % (A) 4 %; Neutrophils # (A) 8.6 k/uL (1.3-7.7); Neutrophils % (A) 83 %; Platelet Count 226 k/uL (150-450); RBC 3.73 m/uL (4.30-5.90); WBC 10.4 k/uL (3.8-10.6)
[2020-04-20 09:06] LABS: Calcium 7.6 mg/dL (8.4-10.2); Potassium 3.5 mmol/L (3.5-5.1)
[2020-04-20 09:11] VITALS: RESP 16; TEMP 97.6
[2020-04-20] MEDS: SODIUM CHLORIDE 0.9% 1,000 ML IV SCH (09:13)
[2020-04-20] MEDS: ASPIRIN 81 MG PO SCH (09:14)
[2020-04-20] MEDS: HEPARIN SODIUM,PORCINE 5,000 UNIT/ML 1 ML VIAL SQ SCH (09:14)
[2020-04-20] MEDS: SODIUM BICARBONATE TAB 650 MG TAB PO SCH ×2 (09:14→14:18)
[2020-04-20] MEDS: amLODIPine 10 MG TAB PO SCH (09:14)
[2020-04-20] MEDS: NICOTINE 21MG/24HR PATCH TRANSDERM SCH (09:14)
--- NOTE | 2020-04-20 11:14 | P.PN ---
Subjective Progress Note Date: 04/20/20 History of present illness: This is a 79-year-old male with past medical history of CAD/AK and denies PCI, COPD, dyslipidemia, chronic kidney disease, hypertension, multiple TIA. Patient states that he has had generalized pain and weakness for several days. It was making it difficult for him to walk and he was using 2 canes to ambulate. He finally called for help as he was having trouble getting around his apartment with significant pain in his feet, pain all over his body and generalized weakness. He states he has been eating and drinking without difficulty. Patient initially presented to [facility]. He underwent a CAT scan of the chest that revealed a 10 mm spiculated pleuroparenchymal thickening in the right upper lobe baby due to scarring. No acute finding. CAT scan of the abdomen and pelvis without contrast showed no acute finding. Large bowel wall thickening with surrounding inflammation due to 2 under distention. Patient was given morphine and Solu-Medrol and patient experienced improvement of his generalized pain. Subsequently the patient was transferred here to [facility], a cardiology consultation was requested because of abnormality in troponin. Blood pressure this morning 176/90 with a heart rate in the 70s, 96% on room air. White blood cell count 10.4, hemoglobin 10.2, platelet count 226. Sodium 137, potassium 3.5, BUN 64, creatinine 2.9. Echocardiogram with Doppler study remains pending. Objective - Vital Signs Vital signs: Vital Signs Temp 97.6 F 04/20/20 09:10 Pulse 77 04/20/20 09:10 Resp 16 04/20/20 09:10 BP 176/98 04/20/20 09:10 Pulse Ox 96 04/20/20 09:10 Intake & Output 04/19/20 04/20/20 04/20/20 18:59 06:59 18:59 Intake Total 120 200 Output Total 650 225 Balance 120 -450 -225 Weight 51.5 kg 52.6 kg Intake: Intake, IV Titration 200 Amount Sodium Chloride 0.9% 1, 200 000 ml @ 50 mls/hr IV . Q20H [facility] Rx#:[id number] Oral 120 Output: Urine 650 225 Other: Voiding Method Toilet Toilet Urinal Urinal # Voids 1 - Exam Physical examination: Gen: This is a 79-year-old male. Patient is seen up in the end to the bed and eating breakfast. Noted tremors of bilateral upper extremities. VS: 176/98, heart rate 77, pulse ox 96% on room air HEENT: Head is atraumatic, normocephalic. Pupils equal, round. Sclerae is anicteric. Heart appearing. NECK: Supple. No JVD. No lymphadenopathy. No thyromegaly. LUNGS: Clear to auscultation. No wheezes or rhonchi. No intercostal retractions. No accessory muscle usage. HEART: Regular rate and rhythm. No murmur. ABDOMEN: Soft. Bowel sounds are present. No masses. No tenderness. EXTREMITIES: No pedal edema. No calf tenderness. Dorsalis pedis +2 bilaterally. NEUROLOGICAL: Patient is awake, alert and oriented x3. Cranial nerves 2 through 12 are grossly intact. - Labs CBC & Chem 7: 04/20/20 08:03 04/20/20 08:03 Labs: Abnormal Lab Results - Last 24 Hours (Table) 04/19/20 04/20/20 04/20/20 Range/Units 09:09 08:03 08:03 RBC 3.73 L (4.30-5.90) m/uL Hgb 10.2 L (13.0-17.5) gm/dL Hct 32.2 L (39.0-53.0) % RDW 16.0 H (11.5-15.5) % Neutrophils # 8.6 H (1.3-7.7) k/uL Chloride 109 H (98-107) mmol/L Carbon Dioxide 17 L (22-30) mmol/L BUN 64 H (9-20) mg/dL Creatinine 2.92 H (0.66-1.25) mg/dL Glucose 100 H (74-99) mg/dL Calcium 7.6 L (8.4-10.2) mg/dL Iron 8 L (65-175) ug/dL TIBC 204 L (228-460) ug/dL % Saturation 3.92 L (15.00-50.00) TSH 0.170 L (0.465-4.680) mIU/L Assessment and Plan Plan: Assessment and plan: #1 Elevated troponins secondary to acute kidney injury, no chest pain, acute coronary syndrome ruled out and no further intervention is planned and continue medical management #2 Acute kidney injury and chronic kidney disease with metabolic acidosis #3 Leukocytosis #4 Hypertensive emergency #5 Hyperlipidemia #6 History of coronary artery disease #7 TIA #8 COPD, tobacco use #9 Possible history of Aortic aneurysm with stenting Plan We will increase the dose of Coreg for more optimal blood pressure management. Review the echocardiogram with Doppler study. DNP note has been reviewed, I agree with a documented findings and plan of care. Patient was seen and examined.
[2020-04-20 12:06] VITALS: BP 142/90
--- NOTE | 2020-04-20 12:31 | P.DS ---
Providers Date of admission: 04/18/20 16:26 Expected date of discharge: 04/20/20 Attending physician: Fina Cardona Consults: 04/18/20 18:26 Consult Physician Routine Consulting Provider: Elsa Pretty Consult Reason/Comments: worsening kidney function Do you want consulting provider notified?: Yes Consult Physician Stat Consulting Provider: Eugenio Simpson Consult Reason/Comments: trop elevation Do you want consulting provider notified?: Yes Primary care physician: Kodi Isabel MD Hospital Course: 79-year-old male with PMH of CAD, COPD, dyslipidemia, chronic kidney disease, hypertension, TIA initially presented to [facility] for generalized pain. His son is at bedside and providing majority of the history. Son reports the patient had similar episode 8 months ago with generalized pain and weakness which improved after 1 week. Patient states his pain is localized to his lower extremities described as myalgias. He denies any headaches, lower extremity edema, nausea or vomiting, fever or chills, cough, chest pain, shortness of breath, palpitations, changes in urination or bowel habits. No changes in appetite or weight. He underwent extensive evaluation in the ED at [facility]. His blood pressure is elevated at 158/93. Urinalysis was relatively benign. Lactic acid was negative. VBG showed pH of 7.03. His bicarb was 14. His BUN was 41, creatinine of 2.9. Patient also had a leukocytosis of 16.4. [place] CT was done which showed no acute findings, large bowel wall thickening. Patient was started on bicarb drip and transferred to [facility] for further workup. He had elevated troponins of 0.1. Patient is admitted for worsening renal failure and elevated troponins with cardiology and nephrology on consult. His troponins were 0.095, 0.097, 0.098. This is thought to be related to troponin leak from acute kidney injury. Cardiology was consulted and recommended echocardiogram. Echocardiogram was pending at the time of this note. Nephrology evaluated the patient and recommended sodium bicarb supplements. Renal ultrasound showed medical renal disease. He was continued on normal saline at 50 mL per hour. He did have a leukocytosis that resolved at the time of discharge. There is no source of infection identified. Patient was seen and examined. No acute events overnight. Patient reports significant improvement in his myalgias. He denies any chest pain, shortness breath or palpitations. No nausea or vomiting. No fever or chills. General: [non toxic], [no distress], [appears at stated age] Derm: [warm], [dry] Head: [atraumatic], [normocephalic], [symmetric] Eyes: [EOMI], [no lid lag], [anicteric sclera] Mouth: [no lip lesion], [mucus membranes moist] Cardiovascular: [S1S2 reg], [no murmur], [positive posterior tibial pulse bilateral], Lungs: [CTA bilateral], [no rhonchi, no rales] , [no accessory muscle use] Abdominal: [soft], [ nontender to palpation], [no guarding], [no appreciable organomegaly] Ext: [no gross muscle atrophy], [no edema], [no contractures] Neuro: [ CN II-XI grossly intact], [no focal neuro deficits] Psych: [Alert], [oriented], [appropriate affect] Troponin elevation Acute kidney injury on chronic kidney disease with metabolic acidosis Leukocytosis Hypertension COPD History of CAD/TIA Patient with elevated troponins of 0.1, 0.095, 0.097, 0.098 on repeat. Likely troponin leak from acute kidney injury. Chest x-ray is negative. Plans: ACS ruled out. Telemetry monitoring. Continue Lipitor. Start aspirin 81 mg by mouth daily. Follow-up echocardiogram. Follow-up cardiology consultation. Creatinine 2.9-2.8-2.92, bicarb 14-18-17. Post bicarb drip. Renal ultrasound shows renal disease. Plans: Started on sodium bicarb supplements, increased today. Repeat BMP tomorrow morning. Avoid nephrotoxins. Stop Lisinopril. Patient is a leukocytosis of 16.5-15.4. Unknown etiology. No obvious signs of infection. Plans: Continue to monitor. Repeat CBC tomorrow morning. BP 138/88. Plans: Continue amlodipine and Coreg. DC Lisinopril and increase Coreg. Monitor vitals, adjust medications if necessary. Stable. Plans: Albuterol inhaler as needed. Continue formoterol. Plans: Continue aspirin and Lipitor. DVT prophylaxis: [Heparin] Discussed with: [Patient and son] Anticipated discharge: [2-3 days] Anticipated discharge place: [Home] A total of [45] minutes was spent on the care of this complex patient more than 50% of the time was spent in counseling and care coordination. Patient names his son Ghassan decision maker if he can't make decisions for himself. Patient would like to be no code. CODE STATUS was discussed with son at bedside. [Generalized pain resolved. Echocardiogram pending. Cleared by cardiology and nephrology. Anticipated DC home today. This complex discharge took about 35 minutes to complete.] Pertinent Studies: Bladder and renal ultrasound, chest x-ray Patient Condition at Discharge: Stable Plan - Discharge Summary New Discharge Prescriptions: New Aspirin 81 mg PO DAILY #30 chew carvediloL [Coreg] 12.5 mg PO AC-BID #60 tab Sodium Bicarbonate Tab 650 mg PO QID #120 tab Continue Gabapentin [Neurontin] 200 mg PO TID PRN PRN Reason: Pain amLODIPine [Norvasc] 10 mg PO DAILY Atorvastatin Calcium [Lipitor] 20 mg PO HS Umeclidinium Brm/Vilanterol Tr [Anoro Ellipta 62.5-25 Mcg INH] 1 puff INHALATION RT-DAILY Albuterol Sulfate [Ventolin HFA] 2 puff INHALATION RT-QID PRN PRN Reason: Shortness Of Breath Discontinued Lisinopril [Zestril] 10 mg PO DAILY Carvedilol [Coreg] 6.25 mg PO BID Discharge Medication List Albuterol Sulfate [Ventolin HFA] 2 puff INHALATION RT-QID PRN 04/18/20 [History] Atorvastatin Calcium [Lipitor] 20 mg PO HS 04/18/20 [History] Gabapentin [Neurontin] 200 mg PO TID PRN 04/18/20 [History] Umeclidinium Brm/Vilanterol Tr [Anoro Ellipta 62.5-25 Mcg INH] 1 puff INHALATION RT-DAILY 04/18/20 [History] amLODIPine [Norvasc] 10 mg PO DAILY 04/18/20 [History] Aspirin 81 mg PO DAILY #30 chew 04/20/20 [Rx] Sodium Bicarbonate Tab 650 mg PO QID #120 tab 04/20/20 [Rx] carvediloL [Coreg] 12.5 mg PO AC-BID #60 tab 04/20/20 [Rx] Follow up Appointment(s)/Referral(s): Elsa Pretty MD [STAFF PHYSICIAN] - 05/28/20 11:30 am (At [facility] specialist) Eugenio Simpson MD [STAFF PHYSICIAN] - 1 Week Kodi Isabel MD [Primary Care Provider] - 04/23/20 11:00 am Patient Instructions/Handouts: How to Stop Smoking (DC), Acute Kidney Injury (DC), Heart Healthy Diet (DC), Hypertension (DC) Activity/Diet/Wound Care/Special Instructions: Diet: Renal diet Follow-up PCP within 3 days of discharge. Follow-up with nephrology within 1 week of discharge. Follow-up with cardiology within 1 week of discharge. Take all medications as advised. Discharge Disposition: HOME SELF-CARE
[2020-04-20 14:20] VITALS: PULSE 80
--- NOTE | 2020-04-20 15:52 | PN ---
PROGRESS NOTE Patient is seen for followup for acute kidney injury. No previous labs available. Serum creatinine has been 2.8 yesterday and today it is at 2.9 mg/dL. He was also found to be acidotic on admission, currently maintained on sodium bicarb. Patient had diarrhea which seems to have improved now. The patient had been on IV fluids which are now discontinued. PHYSICAL EXAMINATION: On examination today, blood pressure 142/90, heart rate 80 per minute, patient is afebrile. Examination of the heart S1, S2. Examination of the lungs, decreased breath sounds at bases. Abdomen is soft, nontender. Examination of the lower extremities shows no evidence of edema. HAIR TINTER exam grossly intact. LABS: Show sodium 137, potassium 3.5, chloride 109, CO2 is 17, BUN 64, serum creatinine 2.92, hemoglobin 10.2 g/dL. ASSESSMENT: 1. Acute kidney injury on top of chronic kidney disease, baseline creatinine not known. Patient is status post IV fluids. Currently maintained on oral sodium bicarb. Patient has a solitary kidney, the left kidney could not be visualized on the ultrasound. His right kidney is 8.3 cm, which is on the smaller side, also. 2. Colitis, currently improved. 3. Anemia of chronic disease with evidence of iron deficiency. Iron saturation was 3.9% yesterday. PLAN: Continue sodium bicarb. Patient should get IV iron. Repeat labs in a.m. He will also need outpatient followup. Maintain patient off of AMANDA inhibitors for now. MMODL / IJN: [id number] /
[2020-04-20] MEDS ORDERED: carvediloL 6.25 MG TAB PO SCH (17:30)
--- NOTE | 2020-04-20 17:40 | ECHOF ---
Referral Reason:trop elevation MEASUREMENTS -------- HEIGHT: 175.3 cm WEIGHT: 52.2 kg BP: 144/83 RVIDd: 3.0 cm (< 3.3) IVSd: 1.4 cm (0.6 - 1.1) LVIDd: 2.8 cm (3.9 - 5.3) LVPWd: 2.0 cm (0.6 - 1.1) IVSs: 1.9 cm LVIDs: 2.1 cm LVPWs: 2.5 cm LAESV Index (A-L): 28.27 ml/m Ao Diam: 3.4 cm (2.0 - 3.7) AV Cusp: 2.1 cm (1.5 - 2.6) MV EXCURSION: 13.536 mm (> 18.000) MV EF SLOPE: 107 mm/s (70 - 150) EPSS: 0.6 cm MV E Tien: 0.76 m/s MV DecT: 171 ms MV A Tien: 0.78 m/s MV E/A Ratio: 0.97 RAP: 5.00 mmHg RVSP: 18.11 mmHg FINDINGS -------- This was a technically adequate study. The left ventricular size is normal. There is moderate concentric left ventricular hypertrophy. O verall left ventricular systolic function is normal with, an EF between 55 - 60 %. The diastolic fi lling pattern is normal for the age of the patient 13.26. The right ventricle is normal in size. Normal LA size by volume 22+/-6 ml/m2. The right atrial size is normal. Interatrial and interventricular septum intact. There is no evidence of aortic regurgitation. There is no evidence of aortic stenosis. Mild mitral regurgitation is present. Mild tricuspid regurgitation present. There is no evidence of pulmonary hypertension. The right v entricular systolic pressure, as measured by Doppler, is 18.11mmHg. There is no pulmonic regurgitation present. The aortic root size is normal. The inferior vena cava is mildly dilated. There is no pericardial effusion. CONCLUSIONS -------- 1. The left ventricular size is normal. 2. There is moderate concentric left ventricular hypertrophy. 3. Overall left ventricular systolic function is normal with, an EF between 55 - 60 %. 4. The diastolic filling pattern is normal for the age of the patient 13.26 5. Mild mitral regurgitation is present. 6. Mild tricuspid regurgitation present. SAFETY ADMIN ASSISTANT: Ann Quiroz RDCS
== END 2020-04-20 14:49 | disposition home or self-care (01) | DRG 683 ==
LOC: EC 14:44 → 3SCARD 16:26
PROVIDERS: ADMIT Internal Medicine; ATTEND Internal Medicine
DX: N17.9 Acute kidney failure, unspecified (principal); E87.2 Acidosis; I16.1 Hypertensive emergency; Q60.0 Renal agenesis, unilateral; N18.9 Chronic kidney disease, unspecified; D63.1 Anemia in chronic kidney disease; E78.5 Hyperlipidemia, unspecified; I12.9 Hypertensive chronic kidney disease with stage 1 through stage 4 chronic kidney disease, or unspecified chronic kidney disease; G89.29 Other chronic pain; M54.9 Dorsalgia, unspecified; M79.605 Pain in left leg; M79.604 Pain in right leg; I25.10 Atherosclerotic heart disease of native coronary artery without angina pectoris; J44.9 Chronic obstructive pulmonary disease, unspecified; K52.9 Noninfective gastroenteritis and colitis, unspecified; Z79.82 Long term (current) use of aspirin; Z79.899 Other long term (current) drug therapy; Z86.73 Personal history of transient ischemic attack (TIA), and cerebral infarction without residual deficits; Z86.79 Personal history of other diseases of the circulatory system; Z66 Do not resuscitate; D72.829 Elevated white blood cell count, unspecified; M79.10 Myalgia, unspecified site; R79.89 Other specified abnormal findings of blood chemistry; Z88.0 Allergy status to penicillin; Z88.2 Allergy status to sulfonamides
CPT/HCPCS: 36415; 71045; 76770; 80048; 80053; 82533; 82550; 83540; 83550; 83735; 83880; 84100; 84439; 84443; 84484; 84550; 85025; 93306; 94640; 99285

== ENCOUNTER 2020-06-18 15:57 | Inpatient (IN) | payer MEDICARE ==
[2020-06-18] MEDS ORDERED: IPRATROPIUM 0.5 MG/2.5 ML NEBU INHALATION STA (16:15)
[2020-06-18] MEDS ORDERED: ALBUTEROL NEBULIZED 2.5 MG/3 ML INHALATION STA (16:15)
[2020-06-18] MEDS ORDERED: methylPREDNISolone SOD SUCCI 125 MG/2 ML VIAL IV STA (16:15)
[2020-06-18] MEDS ORDERED: SODIUM CHLORIDE 0.9% 1,000 ML IV STA (16:15)
--- NOTE | 2020-06-18 16:37 | ED ---
SOB HPI - General Chief Complaint: Shortness of Breath Stated Complaint: Abd pain/weak Time Seen by Provider: 06/18/20 16:14 Source: patient, family, RN notes reviewed, old records reviewed Mode of arrival: wheelchair Limitations: no limitations - History of Present Illness Initial Comments: This is an 80 old male to the ER for evaluation poor story and clinical condition. Patient coming in for multiple complaints shortness of breath history of COPD. Patient presents for significant weakness, generalized body aches and pains. Patient has multiple recent hospital admissions. Patient brought in by son for continued and further evaluation MD Complaint: shortness of breath, cough -: days(s) Severity: moderate Severity scale (1-10): 4 Consistency: constant Improves With: nothing, rest Known History Of: COPD, other (arf) Context: recent illness Associated Symptoms: pain with inspiration, abdominal pain Treatments Prior to Arrival: none - Related Data Home Medications Medication Instructions Recorded Confirmed Albuterol Sulfate [Ventolin HFA] 2 puff INHALATION RT-QID PRN 04/18/20 04/18/20 Atorvastatin Calcium [Lipitor] 20 mg PO HS 04/18/20 04/18/20 Gabapentin [Neurontin] 200 mg PO TID PRN 04/18/20 04/18/20 Umeclidinium Brm/Vilanterol Tr 1 puff INHALATION RT-DAILY 04/18/20 04/18/20 [Anoro Ellipta 62.5-25 Mcg INH] amLODIPine [Norvasc] 10 mg PO DAILY 04/18/20 04/18/20 Previous Rx's Medication Instructions Recorded Aspirin 81 mg PO DAILY #30 chew 04/20/20 Sodium Bicarbonate Tab 650 mg PO QID #120 tab 04/20/20 carvediloL [Coreg] 12.5 mg PO AC-BID #60 tab 04/20/20 Allergies Allergy/AdvReac Type Severity Reaction Status Date / Time Penicillins Allergy Unknown Verified 06/18/20 16:07 Sulfa (Sulfonamide Allergy Unknown Verified 06/18/20 16:07 Antibiotics) Review of Systems ROS Statement: Those systems with pertinent positive or pertinent negative responses have been documented in the HPI. ROS Other: All systems not noted in ROS Statement are negative. Past Medical History Past Medical History: Coronary Artery Disease (CAD), COPD, CVA/TIA, Hyperlipidemia, Hypertension, Myocardial Infarction ([place]), Renal Disease Additional Past Medical History / Comment(s): chronic back pain History of Any Multi-Drug Resistant Organisms: None Reported Past Surgical History: Heart Catheterization, Heart Catheterization With Stent, Orthopedic Surgery Additional Past Surgical History / Comment(s): lt femur Past Psychological History: No Psychological Hx Reported Smoking Status: Current every day smoker Past Alcohol Use History: None Reported Past Drug Use History: None Reported General Exam Limitations: no limitations General appearance: alert, anxious, lethargic, cachectic Head exam: Present: atraumatic, normocephalic, normal inspection Eye exam: Present: normal appearance, PERRL, EOMI. Absent: scleral icterus, conjunctival injection, periorbital swelling ENT exam: Present: normal exam, mucous membranes dry Neck exam: Present: normal inspection. Absent: tenderness, meningismus, lymphadenopathy Respiratory exam: Present: wheezes, accessory muscle use, decreased breath sounds, prolonged expiratory. Absent: respiratory distress, rales, rhonchi, stridor Cardiovascular Exam: Present: regular rate, normal rhythm, normal heart sounds. Absent: systolic murmur, diastolic murmur, rubs, gallop, clicks GI/Abdominal exam: Present: soft, normal bowel sounds. Absent: distended, tenderness, guarding, rebound, rigid Extremities exam: Present: normal inspection, full ROM, normal capillary refill. Absent: tenderness, pedal edema, joint swelling, calf tenderness Back exam: Present: normal inspection Neurological exam: Present: alert, oriented X3, CN II-XII intact Psychiatric exam: Present: normal affect, normal mood Skin exam: Present: warm, dry, intact, normal color. Absent: rash Course Vital Signs 06/18/20 06/18/20 06/18/20 16:02 16:43 16:59 Temperature 98.9 F Pulse Rate 84 76 76 Respiratory 18 Rate Blood Pressure 105/64 O2 Sat by Pulse 90 L Oximetry 06/18/20 17:26 Temperature Pulse Rate 76 Respiratory Rate Blood Pressure O2 Sat by Pulse Oximetry - Reevaluation(s) Reevaluation #1: 06/18/20 17:59 edical record is reviewed 06/18/20 17:59 prior hispitalization is reviewed Reevaluation #2: 06/18/20 18:00 patient improved w hydration breathing tx and steroids on reEval Reevaluation #3: 06/18/20 18:00 spoke w family re admission and findings, questions answered - Consultations Consultation #1: spoke to [facility] re admission and is agreeable Medical Decision Making - Medical Decision Making 80 male w recent hospital admission back to ED today for same, pain, weakness, and SOB, hsa copd w hypoxia, arf, complicated w dehydration and medication noncompliance, son worried patient is unable to take care of himself. - Lab Data Result diagrams: 06/18/20 16:31 06/18/20 16:31 Lab Results 06/18/20 06/18/20 06/18/20 Range/Units 16:31 16:31 16:31 WBC 13.9 H (3.8-10.6) k/uL RBC 3.52 L (4.30-5.90) m/uL Hgb 9.6 L (13.0-17.5) gm/dL Hct 30.6 L (39.0-53.0) % MCV 87.0 (80.0-100.0) fL MCH 27.2 (25.0-35.0) pg MCHC 31.2 (31.0-37.0) g/dL RDW 17.0 H (11.5-15.5) % Plt Count 263 (150-450) k/uL MPV 8.0 Neutrophils % 87 % Lymphocytes % 6 % Monocytes % 5 % Eosinophils % 1 % Basophils % 0 % Neutrophils # 12.1 H (1.3-7.7) k/uL Lymphocytes # 0.8 L (1.0-4.8) k/uL Monocytes # 0.7 (0-1.0) k/uL Eosinophils # 0.1 (0-0.7) k/uL Basophils # 0.0 (0-0.2) k/uL Anisocytosis Slight PT 10.7 (9.0-12.0) sec INR 1.0 (<1.2) APTT 30.7 H (22.0-30.0) sec D-Dimer 4.08 H (<0.60) mg/L FEU Sodium 134 L (137-145) mmol/L Potassium 4.9 (3.5-5.1) mmol/L Chloride 106 (98-107) mmol/L Carbon Dioxide 16 L (22-30) mmol/L Anion Gap 12 mmol/L BUN 60 H (9-20) mg/dL Creatinine 3.70 H (0.66-1.25) mg/dL Est GFR (CKD-EPI)AfAm 17 (>60 ml/min/1.73 sqM) Est GFR (CKD-EPI)NonAf 15 (>60 ml/min/1.73 sqM) Glucose 133 H (74-99) mg/dL Calcium 8.6 (8.4-10.2) mg/dL Magnesium 2.1 (1.6-2.3) mg/dL Total Bilirubin 0.5 (0.2-1.3) mg/dL AST 29 (17-59) U/L ALT 13 (4-49) U/L Alkaline Phosphatase 83 (38-126) U/L Lactate Dehydrogenase 347 (313-618) U/L Creatine Kinase 719 H (55-170) U/L Troponin I (0.000-0.034) ng/mL C-Reactive Protein 343.4 H (<10.0) mg/L NT-Pro-B Natriuret Pep pg/mL Total Protein 5.7 L (6.3-8.2) g/dL Albumin 3.0 L (3.5-5.0) g/dL 06/18/20 06/18/20 Range/Units 16:31 16:31 WBC (3.8-10.6) k/uL RBC (4.30-5.90) m/uL Hgb (13.0-17.5) gm/dL Hct (39.0-53.0) % MCV (80.0-100.0) fL MCH (25.0-35.0) pg MCHC (31.0-37.0) g/dL RDW (11.5-15.5) % Plt Count (150-450) k/uL MPV Neutrophils % % Lymphocytes % % Monocytes % % Eosinophils % % Basophils % % Neutrophils # (1.3-7.7) k/uL Lymphocytes # (1.0-4.8) k/uL Monocytes # (0-1.0) k/uL Eosinophils # (0-0.7) k/uL Basophils # (0-0.2) k/uL Anisocytosis PT (9.0-12.0) sec INR (<1.2) APTT (22.0-30.0) sec D-Dimer (<0.60) mg/L FEU Sodium (137-145) mmol/L Potassium (3.5-5.1) mmol/L Chloride (98-107) mmol/L Carbon Dioxide (22-30) mmol/L Anion Gap mmol/L BUN (9-20) mg/dL Creatinine (0.66-1.25) mg/dL Est GFR (CKD-EPI)AfAm (>60 ml/min/1.73 sqM) Est GFR (CKD-EPI)NonAf (>60 ml/min/1.73 sqM) Glucose (74-99) mg/dL Calcium (8.4-10.2) mg/dL Magnesium (1.6-2.3) mg/dL Total Bilirubin (0.2-1.3) mg/dL AST (17-59) U/L ALT (4-49) U/L Alkaline Phosphatase (38-126) U/L Lactate Dehydrogenase (313-618) U/L Creatine Kinase (55-170) U/L Troponin I 0.119 H* (0.000-0.034) ng/mL C-Reactive Protein (<10.0) mg/L NT-Pro-B Natriuret Pep 11401 pg/mL Total Protein (6.3-8.2) g/dL Albumin (3.5-5.0) g/dL - EKG Data -: EKG Interpreted by Me (EKG is sinus rhythm 81 RI 128 QRS 86 QTc 436) - Radiology Data Radiology results: report reviewed (CXR is negative for acute disaese), image reviewed Critical Care Time Critical Care Time: Yes Total Critical Care Time: 31 Disposition Clinical Impression: Acute exacerbation of chronic obstructive pulmonary disease, NELI (acute kidney injury), Chronic pain, Elevated troponin, Hypoxia, Weakness, Dehydration Disposition: ADMITTED IP TO THIS HOSP Condition: Serious Is patient prescribed a controlled substance at d/c from ED?: No Referrals: Kodi Isabel MD [Primary Care Provider] - 1-2 days
[2020-06-18 16:43] LABS: Anisocytosis Slight; Basophils % (A) 0 %; Eosinophils # (A) 0.1 k/uL (0-0.7); Eosinophils % (A) 1 %; HCT 30.6 % (39.0-53.0); HGB 9.6 gm/dL (13.0-17.5); Lymphocytes # (A) 0.8 k/uL (1.0-4.8); Lymphocytes % (A) 6 %; MCH 27.2 pg (25.0-35.0); MCHC 31.2 g/dL (31.0-37.0); Monocytes # (A) 0.7 k/uL (0-1.0); Monocytes % (A) 5 %; Neutrophils # (A) 12.1 k/uL (1.3-7.7); Neutrophils % (A) 87 %; Platelet Count 263 k/uL (150-450); RBC 3.52 m/uL (4.30-5.90); WBC 13.9 k/uL (3.8-10.6)
[2020-06-18 16:57] LABS: Potassium 4.9 mmol/L (3.5-5.1)
[2020-06-18 16:58] LABS: Partial Thromboplastin Time 30.7 sec (22.0-30.0); Prothrombin Time 10.7 sec (9.0-12.0)
[2020-06-18 17:00] LABS: Calcium 8.6 mg/dL (8.4-10.2); Magnesium 2.1 mg/dL (1.6-2.3); Total Bilirubin 0.5 mg/dL (0.2-1.3); Total Protein 5.7 g/dL (6.3-8.2)
[2020-06-18 17:07] LABS: D-Dimer 4.08 mg/L FEU (<0.60)
[2020-06-18 17:34] LABS: C Reactive Protein 343.4 mg/L (<10.0)
--- NOTE | 2020-06-18 17:46 | XR ---
EXAMINATION TYPE: XR chest 1V portable DATE OF EXAM: 06/18/2020 COMPARISON: Chest x-ray April 18, 2020 HISTORY: History of COPD with cough, shortness of breath, congestion, and weakness. TECHNIQUE: Single frontal view of the chest is obtained. FINDINGS: There is chronic parenchymal change bilaterally without suspicious new focal air space opa city, pleural effusion, or pneumothorax seen. The cardiac silhouette size is stable and mildly enlar ged. The osseous structures remain somewhat demineralized. IMPRESSION: Chronic changes and mild cardiomegaly without acute pulmonary process.
[2020-06-18] MEDS: IPRATROPIUM-ALBUTEROL 3 ML NEB INHALATION SCH (21:12)
[2020-06-18] MEDS ORDERED: HEPARIN SODIUM,PORCINE 5,000 UNIT/ML 1 ML VIAL IV PRN (23:54)
[2020-06-18] MEDS ORDERED: HEPARIN SODIUM,PORCINE 5,000 UNIT/ML 1 ML VIAL IV ONE (23:54)
[2020-06-18] MEDS ORDERED: GABAPENTIN 300 MG CAP PO PRN (23:58)
[2020-06-18] MEDS ORDERED: ALBUTEROL NEBULIZED 2.5 MG/3 ML INHALATION PRN (23:58)
[2020-06-19] MEDS ORDERED: methylPREDNISolone SOD SUCCI 125 MG/2 ML VIAL IV SCH
[2020-06-19 00:33] LABS: Anisocytosis Slight; Basophils % (A) 0 %; Eosinophils % (A) 0 %; HCT 26.9 % (39.0-53.0); Lymphocytes # (A) 0.4 k/uL (1.0-4.8); Lymphocytes % (A) 4 %; MCH 28.6 pg (25.0-35.0); MCHC 33.3 g/dL (31.0-37.0); MCV 85.8 fL (80.0-100.0); Mean Platelet Volume 7.7; Monocytes # (A) 0.3 k/uL (0-1.0); Monocytes % (A) 3 %; Neutrophils # (A) 10.2 k/uL (1.3-7.7); Neutrophils % (A) 93 %; Platelet Count 222 k/uL (150-450); RBC 3.13 m/uL (4.30-5.90); RDW 16.7 % (11.5-15.5)
[2020-06-19 00:52] LABS: INR 1.1 (<1.2); Partial Thromboplastin Time 31.8 sec (22.0-30.0)
[2020-06-19] MEDS: HEPARIN SOD,PORK IN 0.45% NACL 25,000 UNIT in 0.45% NACL 1 250ML.BAG IV SCH (01:57)
[2020-06-19] MEDS: SODIUM CHLORIDE 0.9% 1,000 ML IV SCH ×3 (02:02→20:38)
--- NOTE | 2020-06-19 02:26 | P.HPIM ---
History of Present Illness H&P Date: 06/18/20 The patient is an 80-year-old male with a PMH of COPD, coronary artery disease, chronic kidney disease, hyperlipidemia, and hypertension who presented to the emergency room with complaints of weakness. The patient notes that over the past 3-4 weeks, he has become increasingly weak and is no longer able to perform his ADLs. He reports that he is not able to transfer from his bed to his wheelchair and has been having to call his friends and family to help perform basic tasks. The patient also reports diffuse muscle pain and stiffness along with his weakness also gradually worsening over the past few weeks. He denied any additional complaints. Sleeps with one pillow. Denied lower extremity swelling or PND. Denied shortness of breath, chest discomfort, nausea, vomiting. Denied abdominal pain, fever, chills, cough. He underwent an extensive evaluation in the emergency room which was all reviewed with chest x- ray showing cardiomegaly with no acute changes. EKG revealed a normal sinus rhythm at 81 bpm with no acute ST/T-wave changes noted as reviewed by me. Laboratory evaluation revealed an WBC count 13.9, hemoglobin 9.6, d-dimer 4.08, sodium 134, CO2 16, BUN 60, creatinine 3.7 (up from baseline of 2.9), glucose 133, CK 719, troponin 0.11, CRP 343, proBNP 16,800. Review of Systems Pertinent positives and negatives as discussed in HPI, a complete review of systems was performed and all other systems are negative. Past Medical History Past Medical History: Coronary Artery Disease (CAD), COPD, CVA/TIA, Hy perlipidemia, Hypertension, Myocardial Infarction ([place]), Renal Disease Additional Past Medical History / Comment(s): chronic back pain Last Myocardial Infarction Date:: 2012 History of Any Multi-Drug Resistant Organisms: None Reported Past Surgical History: Heart Catheterization, Heart Catheterization With Stent, Orthopedic Surgery Additional Past Surgical History / Comment(s): lt femur Past Anesthesia/Blood Transfusion Reactions: No Reported Reaction Date of Last Stent Placement:: 2012 Past Psychological History: No Psychological Hx Reported Smoking Status: Current every day smoker Past Alcohol Use History: None Reported Past Drug Use History: None Reported Medications and Allergies Home Medications Medication Instructions Recorded Confirmed Type Albuterol Sulfate [Ventolin HFA] 2 puff INHALATION RT-QID PRN 04/18/20 06/18/20 History Atorvastatin Calcium [Lipitor] 20 mg PO HS 04/18/20 06/18/20 History amLODIPine [Norvasc] 10 mg PO DAILY 04/18/20 06/18/20 History Aspirin 81 mg PO DAILY #30 chew 04/20/20 06/18/20 Rx Sodium Bicarbonate Tab 650 mg PO QID #120 tab 04/20/20 06/18/20 Rx carvediloL [Coreg] 12.5 mg PO AC-BID #60 tab 04/20/20 06/18/20 Rx Gabapentin [Neurontin] 300 mg PO TID PRN 06/18/20 06/18/20 History Lisinopril [Zestril] 10 mg PO DAILY 06/18/20 06/18/20 History Allergies Allergy/AdvReac Type Severity Reaction Status Date / Time Penicillins Allergy Unknown Verified 06/18/20 19:51 Sulfa (Sulfonamide Allergy Unknown Verified 06/18/20 19:51 Antibiotics) Physical Exam Vitals: Vital Signs Temp Pulse Pulse Resp BP BP Pulse Ox 06/18/20 21:26 80 06/18/20 21:13 78 94 L 06/18/20 20:11 98.8 F 79 18 112/72 97 06/18/20 18:38 97.8 F 81 20 116/81 94 L 06/18/20 18:07 18 06/18/20 17:26 76 06/18/20 16:59 76 06/18/20 16:43 76 06/18/20 16:02 98.9 F 84 18 105/64 90 L Intake and Output 06/18/20 06/18/20 06/18/20 06:59 14:59 22:59 Other: Weight 53.07 kg General: Chronically ill-appearing thin male, no distress, appears at stated age, Derm: no unusual rashes/lesions no unusual ecchymoses, warm, dry Head: atraumatic, normocephalic, symmetric Eyes: EOMI, no lid lag, anicteric sclera, pupils equal round reactive to light ENT: Nose and ears atraumatic, no thrush, no pharyngeal erythema Neck: No thyromegaly, no cervical lymphadenopathy, trachea midline, supple Mouth: no lip lesion, mucus membranes moist Cardiovascular: S1S2 reg, no murmur, positive posterior tibial pulse bilateral, no edema, capillary refill less than 2 seconds Lungs: CTA bilateral, no rhonchi, no rales , no accessory muscle use Abdominal: soft, nontender to palpation, no guarding, no appreciable organomegaly, normal bowel sounds Ext: no gross muscle atrophy, diffuse muscular tenderness with painful passive motion, muscle strength 3 out of 5 in all 4 extremities grossly, Neuro: CN II-XI grossly intact, light touch intact all 4 extremities Psych: Alert, oriented, appropriate affect Results CBC & Chem 7: 06/19/20 00:00 06/18/20 16:31 Labs: Abnormal Lab Results - Last 24 Hours (Table) 06/18/20 06/18/20 06/18/20 Range/Units 16:31 16:31 16:31 WBC 13.9 H (3.8-10.6) k/uL RBC 3.52 L (4.30-5.90) m/uL Hgb 9.6 L (13.0-17.5) gm/dL Hct 30.6 L (39.0-53.0) % RDW 17.0 H (11.5-15.5) % Neutrophils # 12.1 H (1.3-7.7) k/uL Lymphocytes # 0.8 L (1.0-4.8) k/uL APTT 30.7 H (22.0-30.0) sec D-Dimer 4.08 H (<0.60) mg/L FEU Sodium 134 L (137-145) mmol/L Carbon Dioxide 16 L (22-30) mmol/L BUN 60 H (9-20) mg/dL Creatinine 3.70 H (0.66-1.25) mg/dL Glucose 133 H (74-99) mg/dL Creatine Kinase 719 H (55-170) U/L Troponin I (0.000-0.034) ng/mL C-Reactive Protein 343.4 H (<10.0) mg/L Total Protein 5.7 L (6.3-8.2) g/dL Albumin 3.0 L (3.5-5.0) g/dL 06/18/20 Range/Units 16:31 WBC (3.8-10.6) k/uL RBC (4.30-5.90) m/uL Hgb (13.0-17.5) gm/dL Hct (39.0-53.0) % RDW (11.5-15.5) % Neutrophils # (1.3-7.7) k/uL Lymphocytes # (1.0-4.8) k/uL APTT (22.0-30.0) sec D-Dimer (<0.60) mg/L FEU Sodium (137-145) mmol/L Carbon Dioxide (22-30) mmol/L BUN (9-20) mg/dL Creatinine (0.66-1.25) mg/dL Glucose (74-99) mg/dL Creatine Kinase (55-170) U/L Troponin I 0.119 H* (0.000-0.034) ng/mL C-Reactive Protein (<10.0) mg/L Total Protein (6.3-8.2) g/dL Albumin (3.5-5.0) g/dL Thrombosis Risk Factor Assmnt - Choose All That Apply Any of the Below Risk Factors Present?: Yes Each Factor Represents 1 point: Abnormal pulmonary function (COPD) Each Risk Factor Represents 3 Points: Age 75 years or older Thrombosis Risk Factor Assessment Total Risk Factor Score: 4 Thrombosis Risk Factor Assessment Level: Moderate Risk Assessment and Plan Plan: Failure to thrive, unclear etiology, possibly due to dehydration -PT consult -IV hydration Elevated d-dimer -Obtain V/Q scan and LE duplex -Perform Coronavirus testing -Empiric heparin infusion NELI on CKD -C/w IV hydration and monitor BMP Elevated troponin -Similar to baseline, possibly secondary to NELI -Trend for now Leukocytosis -No signs of active infection at this time -Possibly secondary to acute stressors -Monitor CBC Elevated CK -Likely mild rhabdo due to dehydration -Continue with IV fluids Normocytic anemia -Close to baseline -Monitor for now DVT prophylaxis -Heparin The patient is admitted with an anticipated greater than 2 midnight stay for evaluation of failure to thrive CODE STATUS: Full Code Discussed with: Patient, RN Anticipated discharge date: 3-[address]: [facility] A total of 40 minutes was spent on the care of this complex patient more than 50% of the time was spent in counseling and care coordination.
[2020-06-19] MEDS: carvediloL 12.5 MG TAB PO SCH ×2 (06:48→17:33)
--- NOTE | 2020-06-19 08:11 | US ---
EXAMINATION TYPE: US venous doppler duplex LE DATE OF EXAM: 06/19/2020 7:54 AM COMPARISON: NONE CLINICAL HISTORY: r/o DVT. h/o leg pain SIDE PERFORMED: TECHNIQUE: The lower extremity deep venous system is examined utilizing real time linear array sonog german with graded compression, doppler sonography and color-flow sonography. VESSELS IMAGED: Common Femoral Vein Deep Femoral Vein Greater Saphenous Vein * Femoral Vein Popliteal Vein Small Saphenous Vein * Proximal Calf Veins (* superficial vessels) Right Leg: Negative for DVT Left Leg: Negative for DVT, unable to do TRV compression popiteal vein images due to lack of mobilit y of patients left leg. Good blood flow seen within pop vein. IMPRESSION: 1. Bilateral lower extremity ultrasound negative for deep venous thrombosis. 2. There is some limitation on the left lower extremity examination although no secondary signs to llanos ggest thrombus is evident.
[2020-06-19] MEDS: ASPIRIN 81 MG PO SCH (08:25)
[2020-06-19] MEDS: SODIUM BICARBONATE TAB 650 MG TAB PO SCH ×4 (08:25→20:39)
[2020-06-19] MEDS: IPRATROPIUM-ALBUTEROL 3 ML NEB INHALATION SCH ×4 (08:33→20:49)
[2020-06-19] MEDS ORDERED: ENOXAPARIN 40 MG/0.4 ML SYRINGE SQ SCH (09:00)
[2020-06-19] MEDS ORDERED: amLODIPine 10 MG TAB PO SCH (09:00)
--- NOTE | 2020-06-19 09:56 | NM ---
EXAMINATION TYPE: NM pul vent and perfuse DATE OF EXAM: 06/19/2020 COMPARISON: Chest x-ray 06/18/2020 HISTORY: Rule out PE. No other history is provided. There is prior history of cough congestion and we akness with history of COPD. TECHNIQUE: Utilizing inhalation of 67.8 mCi Tc 99m DTPA aerosol and intravenous injection of 5.1 mCi of Tc 99m MAA, ventilation and perfusion images are acquired post injection in multiple projections. FINDINGS: There is a patchy radiotracer distribution on ventilation and perfusion studies. These appear to be m atched. Moderate or large mismatched defects are not evident. A smaller mismatched defect may be at t he left base. No triple matched defect is evident. IMPRESSION: Intermediate probability for pulmonary embolism based on PIOPED 2 criteria.
[2020-06-19 10:03] LABS: Anisocytosis Slight; Basophils % (A) 0 %; Eosinophils % (A) 0 %; HCT 29.3 % (39.0-53.0); HGB 9.5 gm/dL (13.0-17.5); Hypochromasia Slight; Lymphocytes # (A) 0.5 k/uL (1.0-4.8); Lymphocytes % (A) 4 %; MCH 28.3 pg (25.0-35.0); MCHC 32.4 g/dL (31.0-37.0); MCV 87.5 fL (80.0-100.0); Mean Platelet Volume 7.8; Monocytes # (A) 0.4 k/uL (0-1.0); Monocytes % (A) 4 %; Neutrophils # (A) 10.6 k/uL (1.3-7.7); Neutrophils % (A) 92 %; Platelet Count 241 k/uL (150-450); RBC 3.35 m/uL (4.30-5.90); RDW 16.9 % (11.5-15.5); WBC 11.6 k/uL (3.8-10.6)
[2020-06-19 10:59] LABS: Albumin 2.9 g/dL (3.5-5.0); Calcium 7.9 mg/dL (8.4-10.2); Potassium 4.7 mmol/L (3.5-5.1); Total Bilirubin 0.5 mg/dL (0.2-1.3); Total Protein 5.5 g/dL (6.3-8.2)
--- NOTE | 2020-06-19 11:08 | P.PN ---
Subjective Progress Note Date: 06/19/20 Principal diagnosis: weakness feels better, no cp no sob , no n/v no dizziness Objective - Vital Signs Vital signs: Vital Signs Temp 97.6 F 06/19/20 08:20 Pulse 81 06/19/20 08:20 Resp 20 06/19/20 08:20 BP 111/64 06/19/20 08:20 Pulse Ox 95 06/19/20 08:20 Intake & Output 06/18/20 06/19/20 06/19/20 18:59 06:59 18:59 Output Total 125 Balance -125 Weight 53.07 kg 53.5 kg Output: Urine 125 Other: Voiding Method Urinal Urinal - Exam General: Chronically ill-appearing thin male, no distress Derm: no unusual rashes/lesions no unusual ecchymoses, warm, dry Head: atraumatic, normocephalic, symmetric Eyes: EOMI, no lid lag, anicteric sclera, pupils equal round reactive to light ENT: Nose and ears atraumatic Neck: No thyromegaly Mouth: no lip lesion, mucus membranes moist Cardiovascular: S1S2 reg, no murmur, positive posterior tibial pulse bilateral, no edema, capillary refill less than 2 seconds Lungs: CTA bilateral, no rhonchi, no rales , no accessory muscle use Abdominal: soft, nontender to palpation, no guarding, no appreciable organomegaly, normal bowel sounds Ext: no gross muscle atrophy, diffuse muscular tenderness with painful passive motion, muscle strength 3 out of 5 in all 4 extremities grossly, Neuro: CN II-XI grossly intact, light touch intact all 4 extremities Psych: Alert, oriented, appropriate affect - Labs CBC & Chem 7: 06/19/20 09:42 06/19/20 09:42 Labs: Abnormal Lab Results - Last 24 Hours (Table) 06/18/20 06/18/20 06/18/20 Range/Units 16:31 16:31 16:31 WBC 13.9 H (3.8-10.6) k/uL RBC 3.52 L (4.30-5.90) m/uL Hgb 9.6 L (13.0-17.5) gm/dL Hct 30.6 L (39.0-53.0) % RDW 17.0 H (11.5-15.5) % Neutrophils # 12.1 H (1.3-7.7) k/uL Lymphocytes # 0.8 L (1.0-4.8) k/uL APTT 30.7 H (22.0-30.0) sec D-Dimer 4.08 H (<0.60) mg/L FEU Sodium 134 L (137-145) mmol/L Chloride (98-107) mmol/L Carbon Dioxide 16 L (22-30) mmol/L BUN 60 H (9-20) mg/dL Creatinine 3.70 H (0.66-1.25) mg/dL Glucose 133 H (74-99) mg/dL Calcium (8.4-10.2) mg/dL Creatine Kinase 719 H (55-170) U/L Troponin I (0.000-0.034) ng/mL C-Reactive Protein 343.4 H (<10.0) mg/L Total Protein 5.7 L (6.3-8.2) g/dL Albumin 3.0 L (3.5-5.0) g/dL 06/18/20 06/19/20 06/19/20 Range/Units 16:31 00:00 00:00 WBC 11.0 H (3.8-10.6) k/uL RBC 3.13 L (4.30-5.90) m/uL Hgb 9.0 L (13.0-17.5) gm/dL Hct 26.9 L (39.0-53.0) % RDW 16.7 H (11.5-15.5) % Neutrophils # 10.2 H (1.3-7.7) k/uL Lymphocytes # 0.4 L (1.0-4.8) k/uL APTT 31.8 H (22.0-30.0) sec D-Dimer (<0.60) mg/L FEU Sodium (137-145) mmol/L Chloride (98-107) mmol/L Carbon Dioxide (22-30) mmol/L BUN (9-20) mg/dL Creatinine (0.66-1.25) mg/dL Glucose (74-99) mg/dL Calcium (8.4-10.2) mg/dL Creatine Kinase (55-170) U/L Troponin I 0.119 H* (0.000-0.034) ng/mL C-Reactive Protein (<10.0) mg/L Total Protein (6.3-8.2) g/dL Albumin (3.5-5.0) g/dL 06/19/20 06/19/20 06/19/20 Range/Units 09:42 09:42 09:42 WBC 11.6 H (3.8-10.6) k/uL RBC 3.35 L (4.30-5.90) m/uL Hgb 9.5 L (13.0-17.5) gm/dL Hct 29.3 L (39.0-53.0) % RDW 16.9 H (11.5-15.5) % Neutrophils # 10.6 H (1.3-7.7) k/uL Lymphocytes # 0.5 L (1.0-4.8) k/uL APTT (22.0-30.0) sec D-Dimer (<0.60) mg/L FEU Sodium (137-145) mmol/L Chloride 109 H (98-107) mmol/L Carbon Dioxide 18 L (22-30) mmol/L BUN 75 H (9-20) mg/dL Creatinine 3.49 H (0.66-1.25) mg/dL Glucose 137 H (74-99) mg/dL Calcium 7.9 L (8.4-10.2) mg/dL Creatine Kinase 355 H (55-170) U/L Troponin I 0.083 H* (0.000-0.034) ng/mL C-Reactive Protein (<10.0) mg/L Total Protein 5.5 L (6.3-8.2) g/dL Albumin 2.9 L (3.5-5.0) g/dL 06/19/20 Range/Units 09:42 WBC (3.8-10.6) k/uL RBC (4.30-5.90) m/uL Hgb (13.0-17.5) gm/dL Hct (39.0-53.0) % RDW (11.5-15.5) % Neutrophils # (1.3-7.7) k/uL Lymphocytes # (1.0-4.8) k/uL APTT 55.0 H (22.0-30.0) sec D-Dimer (<0.60) mg/L FEU Sodium (137-145) mmol/L Chloride (98-107) mmol/L Carbon Dioxide (22-30) mmol/L BUN (9-20) mg/dL Creatinine (0.66-1.25) mg/dL Glucose (74-99) mg/dL Calcium (8.4-10.2) mg/dL Creatine Kinase (55-170) U/L Troponin I (0.000-0.034) ng/mL C-Reactive Protein (<10.0) mg/L Total Protein (6.3-8.2) g/dL Albumin (3.5-5.0) g/dL Assessment and Plan Plan: Failure to thrive, unclear etiology -PT consult -IV fluids Elevated d-dimer -Obtain V/Q scan and LE duplex, intermediate probability for PE, lower extremity Dopplers negative. -Continue heparin infusion needs oral anticoagulation prior to dc NELI on CKD stage 4 -scr better from 3.7 to 3.4 baseline scr 2.8-2.9 Elevated troponin -Similar to baseline, possibly secondary to NELI -monitor Leukocytosis -No signs of active infection at this time -Possibly secondary to acute stressors -Monitor CBC Elevated CK -Likely mild rhabdo due to dehydration -Continue with IV fluids, monitor Normocytic anemia -Close to baseline -Monitor for now DVT prophylaxis -Heparin Metabolic acidosis 2/2 neli/ckd continue oral bicarb The patient is admitted with an anticipated greater than 2 midnight stay for evaluation of failure to thrive CODE STATUS: Full Code Discussed with: Patient Anticipated discharge date: 2-[address]: [facility]
--- NOTE | 2020-06-19 13:09 | CDI ---
Documentation Clarification Form Date: 06/19/2020 12:47:16 PM From: Radha Armando RN CCDS Admit Date: 06/18/2020 06:02:00 PM Patient Name: Anival Patel Visit Number: [id number] Discharge Date: ATTENTION: The Clinical Documentation Specialists (CDI) and [facility] Coding Staff appreciate your assistance in clarifying documentation. Please respond to the clarification below the line at the bottom and electronically sign. The CDI & [facility] Coding staff will review the response and follow-up if needed. Please note: Queries are made part of the Legal Health Record. If you have any questions, please contact the author of this message via ITS. Dr. Amy Virgen Documentation states: Elevated d-dimer and Intermediate probability for PE History/Risk Factors: 80-year-old male presents to the ED for shortness of breath, cough and body aches. Medical history CKD 4; COPD; CVA; HTN, CAD Clinical indicators: 06/19 Internal Medicine Progress Note: Elevated d-dimer Obtain V/Q scan and LE duplex, intermediate probability for PE, lower extremity Dopplers negative. Continue heparin infusion needs oral anticoagulation prior to dc. 06/19 V/Q Scan: Intermediate probability for PE 06/18 Lab: D-dimer 4.08 Treatment: 06/18 Heparin Iv x1, 06/18 Heparin Ivpb Clinical significance of diagnostic testing and treatment CANNOT be assumed or coded without physician documentation of significance if any. Please clarify what abnormal laboratory signifies: Pulmonary Embolism POA Abnormal Lab Value Unable to determine Other, please specify (Last Revision: April 2017) Suspected pulmonary embolism MTDD
--- NOTE | 2020-06-19 18:29 | P.NPCON ---
History of Present Illness - Reason for Consult Consult date: 06/19/20 acute renal failure - Chief Complaint Shortness of breath - History of Present Illness Poor historian, coming to the hospital with shortness of breath. He has underlying history of COPD. Baseline creatinine unclear. Previous creatinine in March 2020 was 2.8-2.9 MG per DL. He was admitted with a creatinine of 3.7 improved to 3.4 with IV fluids. No nausea vomiting diarrhea. Denies NSAID use. No recent contrast studies. Denies any urinary retention or incomplete emptying of the bladder. Pressures soft with episodes of hypotension. Review of Systems Constitutional: Reports as per HPI Past Medical History Past Medical History: Coronary Artery Disease (CAD), COPD, CVA/TIA, Hyperlipidemia, Hypertension, Myocardial Infarction ([place]), Renal Disease Additional Past Medical History / Comment(s): chronic back pain Last Myocardial Infarction Date:: 2012 History of Any Multi-Drug Resistant Organisms: None Reported Past Surgical History: Heart Catheterization, Heart Catheterization With Stent, Orthopedic Surgery Additional Past Surgical History / Comment(s): lt femur Past Anesthesia/Blood Transfusion Reactions: No Reported Reaction Date of Last Stent Placement:: 2012 Past Psychological History: No Psychological Hx Reported Smoking Status: Current every day smoker Past Alcohol Use History: None Reported Past Drug Use History: None Reported Medications and Allergies Home Medications Medication Instructions Recorded Confirmed Type Albuterol Sulfate [Ventolin HFA] 2 puff INHALATION RT-QID PRN 04/18/20 06/18/20 History Atorvastatin Calcium [Lipitor] 20 mg PO HS 04/18/20 06/18/20 History amLODIPine [Norvasc] 10 mg PO DAILY 04/18/20 06/18/20 History Aspirin 81 mg PO DAILY #30 chew 04/20/20 06/18/20 Rx Sodium Bicarbonate Tab 650 mg PO QID #120 tab 04/20/20 06/18/20 Rx carvediloL [Coreg] 12.5 mg PO AC-BID #60 tab 04/20/20 06/18/20 Rx Gabapentin [Neurontin] 300 mg PO TID PRN 06/18/20 06/18/20 History Lisinopril [Zestril] 10 mg PO DAILY 06/18/20 06/18/20 History Allergies Allergy/AdvReac Type Severity Reaction Status Date / Time Penicillins Allergy Unknown Verified 06/18/20 19:51 Sulfa (Sulfonamide Allergy Unknown Verified 06/18/20 19:51 Antibiotics) Physical Exam Vitals: Vital Signs Temp Pulse Pulse Resp BP BP Pulse Ox 06/19/20 16:58 78 06/19/20 16:48 77 06/19/20 15:51 97.6 F 77 20 115/66 95 06/19/20 12:42 74 18 06/19/20 11:52 76 06/19/20 11:46 97.5 F L 74 18 115/71 95 06/19/20 11:43 76 06/19/20 08:20 97.6 F 81 20 111/64 95 06/19/20 08:00 81 20 06/19/20 06:43 119/73 06/19/20 04:00 97.5 F L 76 18 105/67 95 06/19/20 02:00 78 20 06/19/20 00:00 97.6 F 78 20 94/58 93 L 06/18/20 21:26 80 06/18/20 21:15 94 L 06/18/20 21:13 78 94 L 06/18/20 20:11 98.8 F 79 18 112/72 97 06/18/20 20:00 97.8 F 81 20 116/81 94 L 06/18/20 18:38 97.8 F 81 20 116/81 94 L Intake and Output 06/19/20 06/19/20 06/19/20 06:59 14:59 22:59 Intake Total 365 Output Total 125 300 250 Balance -125 65 -250 Intake: Oral 365 Output: Urine 125 300 250 Other: Voiding Method Urinal Urinal Weight 53.5 kg No acute distress S1-S2 heard Decreased breath sounds Abdomen soft No edema Results - Lab Results Most recent lab results Calcium 7.9 mg/dL (8.4-10.2) L 06/19/20 09:42 Magnesium 2.1 mg/dL (1.6-2.3) 06/18/20 16:31 06/19/20 09:42 06/19/20 09:42 Assessment and Plan Assessment: #1 acute kidney injury suspect prerenal process. 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 #3 COPD #4 metabolic acidosis secondary to acute kidney injury #5 hypotensive episodes #6 anemia with chronic kidney disease Plan: #1 renal function improving. Decrease IV fluids to 50 ML's an hour. #2 check urine analysis, urine electrolytes, renal ultrasound. #3 discontinue lisinopril, his home medication for now #4 avoid nephrotoxic agents and hypotensive episodes #5 labs in the morning
[2020-06-19] MEDS: ATORVASTATIN 20 MG TAB PO SCH (20:39)
--- NOTE | 2020-06-19 22:39 | US ---
EXAMINATION TYPE: US renals and bladder DATE OF EXAM: 06/19/2020 COMPARISON: US CLINICAL HISTORY: NELI. NELI. EXAM MEASUREMENTS: Right Kidney: 7.9 x 3.7 x 4.3 cm Left Kidney: 10.0 x 4.6 x 5.0 cm Right Kidney: Anechoic area seen laterally measurin.7 x 0.6 x 0.6 cm. Anechoic area seen inferior ly measurin.7 x 0.9 x 0.7 cm. Left Kidney: No hydronephrosis or masses seen Bladder: Appears anechoic. Bilateral Jets seen: No Prostate appears to be prominent measurin.8 x 5.2 x 3.9 cm. IMPRESSION: Right renal cortical cysts. No evidence of solid renal mass or obstruction.Enlarged prostate.
[2020-06-20] MEDS: HEPARIN SOD,PORK IN 0.45% NACL 25,000 UNIT in 0.45% NACL 1 250ML.BAG IV SCH (00:24)
[2020-06-20] MEDS: SODIUM CHLORIDE 0.9% 1,000 ML IV SCH ×2 (00:35→20:20)
[2020-06-20 06:18] LABS: Amorphous Sediment,Urine Rare /hpf; Appearance,Urine Clear (Clear); Bacteria,Urine Rare /hpf; Bilirubin,Urine Negative (Negative); Blood,Urine Trace (Negative); Color,Urine Light Yellow; Glucose,Urine (UA) Negative (Negative); Ketones,Urine Negative (Negative); Leukocyte Esterase,Urine Negative (Negative); Mucus,Urine Rare /hpf; Nitrite,Urine Negative (Negative); Protein,Urine 1+ (Negative); Specific Gravity,Urine 1.013 (1.001-1.035); Squamous Epithelial Cell,Urine <1 /hpf (0-4); Urobilinogen,Urine <2.0 mg/dL (<2.0); WBC,Urine 1 /hpf (0-5)
[2020-06-20] MEDS: carvediloL 3.125 MG TAB PO SCH ×2 (06:42→17:30)
[2020-06-20 09:24] LABS: Anisocytosis Slight; Basophils % (A) 0 %; Eosinophils % (A) 0 %; HCT 26.3 % (39.0-53.0); HGB 8.2 gm/dL (13.0-17.5); Hypochromasia Slight; Lymphocytes # (A) 0.6 k/uL (1.0-4.8); Lymphocytes % (A) 6 %; MCH 27.3 pg (25.0-35.0); MCHC 31.2 g/dL (31.0-37.0); MCV 87.3 fL (80.0-100.0); Mean Platelet Volume 8.7; Monocytes # (A) 0.2 k/uL (0-1.0); Monocytes % (A) 2 %; Neutrophils # (A) 8.9 k/uL (1.3-7.7); Neutrophils % (A) 92 %; Platelet Count 249 k/uL (150-450); RBC 3.01 m/uL (4.30-5.90); RDW 16.8 % (11.5-15.5); WBC 9.7 k/uL (3.8-10.6)
--- NOTE | 2020-06-20 09:27 | P.PN ---
Subjective Progress Note Date: 06/20/20 Principal diagnosis: weakness no cp no sob , no n/v no dizziness , feels much better , no abd pain on oxygen Objective - Vital Signs Vital signs: Vital Signs Temp 97.3 F L 06/20/20 04:00 Pulse 77 06/20/20 04:00 Resp 18 06/20/20 04:00 BP 124/77 06/20/20 04:00 Pulse Ox 91 L 06/20/20 04:00 Intake & Output 06/19/20 06/20/20 06/20/20 18:59 06:59 18:59 Intake Total 1085 564.465 Output Total 1500 Balance -415 564.465 Weight 53.9 kg Intake: Intake, IV Titration 564.465 Amount Heparin Sod,Pork in 0.45% 214.465 NaCl 25,000 unit In 0.45 % NaCl 1 250ml.bag @ 18 UNITS/KG/HR 9.553 mls/hr IV .Q24H [facility] Rx#: [id number] Sodium Chloride 0.9% 1, 350 000 ml @ 50 mls/hr IV . Q20H [facility] Rx#:[id number] Oral 1085 Output: Urine 1200 Post Void Residual 300 Other: Voiding Method Urinal Urinal # Voids 0 # Bowel Movements 0 - Exam General: Chronically ill-appearing thin male, no distress Derm: no unusual rashes/lesions no unusual ecchymoses, warm, dry Head: atraumatic, normocephalic, symmetric Eyes: EOMI, no lid lag, anicteric sclera, pupils equal round reactive to light ENT: Nose and ears atraumatic Neck: No thyromegaly Mouth: no lip lesion, mucus membranes moist Cardiovascular: S1S2 reg, no murmur Lungs: CTA bilateral, no rhonchi, no rales , no accessory muscle use Abdominal: soft, nontender to palpation, no guarding, no appreciable organomegaly, normal bowel sounds Ext: no gross muscle atrophy Neuro: CN II-XI grossly intact, light touch intact all 4 extremities Psych: Alert, oriented, appropriate affect - Labs CBC & Chem 7: 06/19/20 09:42 06/19/20 09:42 Labs: Abnormal Lab Results - Last 24 Hours (Table) 06/19/20 06/19/20 06/19/20 Range/Units 09:42 09:42 09:42 WBC 11.6 H (3.8-10.6) k/uL RBC 3.35 L (4.30-5.90) m/uL Hgb 9.5 L (13.0-17.5) gm/dL Hct 29.3 L (39.0-53.0) % RDW 16.9 H (11.5-15.5) % Neutrophils # 10.6 H (1.3-7.7) k/uL Lymphocytes # 0.5 L (1.0-4.8) k/uL APTT (22.0-30.0) sec Chloride 109 H (98-107) mmol/L Carbon Dioxide 18 L (22-30) mmol/L BUN 75 H (9-20) mg/dL Creatinine 3.49 H (0.66-1.25) mg/dL Glucose 137 H (74-99) mg/dL Calcium 7.9 L (8.4-10.2) mg/dL Creatine Kinase 355 H (55-170) U/L Troponin I 0.083 H* (0.000-0.034) ng/mL Total Protein 5.5 L (6.3-8.2) g/dL Albumin 2.9 L (3.5-5.0) g/dL Urine Protein (Negative) Urine Blood (Negative) Amorphous Sediment (None) /hpf Urine Bacteria (None) /hpf Urine Mucus (None) /hpf 06/19/20 06/20/20 Range/Units 09:42 05:44 WBC (3.8-10.6) k/uL RBC (4.30-5.90) m/uL Hgb (13.0-17.5) gm/dL Hct (39.0-53.0) % RDW (11.5-15.5) % Neutrophils # (1.3-7.7) k/uL Lymphocytes # (1.0-4.8) k/uL APTT 55.0 H (22.0-30.0) sec Chloride (98-107) mmol/L Carbon Dioxide (22-30) mmol/L BUN (9-20) mg/dL Creatinine (0.66-1.25) mg/dL Glucose (74-99) mg/dL Calcium (8.4-10.2) mg/dL Creatine Kinase (55-170) U/L Troponin I (0.000-0.034) ng/mL Total Protein (6.3-8.2) g/dL Albumin (3.5-5.0) g/dL Urine Protein 1+ H (Negative) Urine Blood Trace H (Negative) Amorphous Sediment Rare H (None) /hpf Urine Bacteria Rare H (None) /hpf Urine Mucus Rare H (None) /hpf Assessment and Plan Plan: Failure to thrive, unclear etiology -PT /OT consult appreciated. -IV fluids Elevated d-dimer -Obtain V/Q scan and LE duplex, intermediate probability for PE, lower extremity Dopplers negative. -Continue heparin infusion needs oral anticoagulation prior to dc NELI on CKD stage 4 -scr better from 3.7 to 3.4 baseline scr 2.8-2.9 , renal ultrasound unremarkable, pending labs today. -Nephrology following. Elevated troponin -Similar to baseline, possibly secondary to NELI -monitor Leukocytosis -No signs of active infection at this time -Possibly secondary to acute stressors -Monitor CBC, 11,000 today. Elevated CK -Likely mild rhabdo due to dehydration -Continue with IV fluids, monitor Normocytic anemia -Close to baseline -Monitor for now DVT prophylaxis -Heparin Metabolic acidosis 2/2 neli/ckd continue oral bicarb , bicarbonate up to 18 yesterday CODE STATUS: Full Code Discussed with: Patient Anticipated discharge date: 1-[address]: [facility]
[2020-06-20] MEDS: IPRATROPIUM-ALBUTEROL 3 ML NEB INHALATION SCH ×4 (09:31→20:34)
[2020-06-20] MEDS: ASPIRIN 81 MG PO SCH (10:01)
[2020-06-20] MEDS: SODIUM BICARBONATE TAB 650 MG TAB PO SCH ×4 (10:01→20:20)
[2020-06-20 10:14] LABS: Albumin 2.5 g/dL (3.5-5.0); Calcium 7.3 mg/dL (8.4-10.2); Potassium 4.3 mmol/L (3.5-5.1); Total Bilirubin 0.4 mg/dL (0.2-1.3); Total Protein 4.9 g/dL (6.3-8.2)
--- NOTE | 2020-06-20 14:34 | P.PN ---
Subjective Progress Note Date: 06/20/20 Follow-up for acute kidney injury. Lying comfortable in the bed. Objective - Vital Signs Vital signs: Vital Signs Temp 97.3 F L 06/20/20 04:00 Pulse 75 06/20/20 12:00 Resp 20 06/20/20 12:00 BP 118/62 06/20/20 12:00 Pulse Ox 93 L 06/20/20 12:00 Intake & Output 06/19/20 06/20/20 06/20/20 18:59 06:59 18:59 Intake Total 1085 564.465 480 Output Total 1500 300 Balance -415 564.465 180 Weight 53.9 kg Intake: Intake, IV Titration 564.465 Amount Heparin Sod,Pork in 0.45% 214.465 NaCl 25,000 unit In 0.45 % NaCl 1 250ml.bag @ 18 UNITS/KG/HR 9.553 mls/hr IV .Q24H [facility] Rx#: [id number] Sodium Chloride 0.9% 1, 350 000 ml @ 50 mls/hr IV . Q20H [facility] Rx#:[id number] Oral 1085 480 Output: Urine 1200 300 Post Void Residual 300 Other: Voiding Method Urinal Urinal # Voids 0 # Bowel Movements 0 - Exam No acute distress S1-S2 heard Diminished breath sounds Trace edema - Labs CBC & Chem 7: 06/20/20 08:57 06/20/20 08:57 Labs: Abnormal Lab Results - Last 24 Hours (Table) 06/20/20 06/20/20 06/20/20 Range/Units 05:44 08:57 08:57 RBC 3.01 L (4.30-5.90) m/uL Hgb 8.2 L (13.0-17.5) gm/dL Hct 26.3 L (39.0-53.0) % RDW 16.8 H (11.5-15.5) % Neutrophils # 8.9 H (1.3-7.7) k/uL Lymphocytes # 0.6 L (1.0-4.8) k/uL APTT 45.8 H (22.0-30.0) sec Chloride (98-107) mmol/L Carbon Dioxide (22-30) mmol/L BUN (9-20) mg/dL Creatinine (0.66-1.25) mg/dL Glucose (74-99) mg/dL Calcium (8.4-10.2) mg/dL Total Protein (6.3-8.2) g/dL Albumin (3.5-5.0) g/dL Urine Protein 1+ H (Negative) Urine Blood Trace H (Negative) Amorphous Sediment Rare H (None) /hpf Urine Bacteria Rare H (None) /hpf Urine Mucus Rare H (None) /hpf 06/20/ Range/Units 08:57 RBC (4.30-5.90) m/uL Hgb (13.0-17.5) gm/dL Hct (39.0-53.0) % RDW (11.5-15.5) % Neutrophils # (1.3-7.7) k/uL Lymphocytes # (1.0-4.8) k/uL APTT (22.0-30.0) sec Chloride 110 H (98-107) mmol/L Carbon Dioxide 16 L (22-30) mmol/L BUN 93 H (9-20) mg/dL Creatinine 3.36 H (0.66-1.25) mg/dL Glucose 198 H (74-99) mg/dL Calcium 7.3 L (8.4-10.2) mg/dL Total Protein 4.9 L (6.3-8.2) g/dL Albumin 2.5 L (3.5-5.0) g/dL Urine Protein (Negative) Urine Blood (Negative) Amorphous Sediment (None) /hpf Urine Bacteria (None) /hpf Urine Mucus (None) /hpf Assessment and Plan Assessment: #1 acute kidney injury suspect prerenal process. 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 #3 COPD #4 metabolic acidosis secondary to acute kidney injury #5 hypotensive episodes #6 anemia with chronic kidney disease Plan: #1 renal function close to baseline. Continue with IV fluids at 50 ML's an hour. #2 avoid nephrotoxic agents and hypotensive episodes #3 CK D medications
[2020-06-20] MEDS ORDERED: SODIUM BICARBONATE TAB 650 MG TAB PO SCH (16:00)
[2020-06-20] MEDS: ATORVASTATIN 20 MG TAB PO SCH (20:20)
[2020-06-21] MEDS: HEPARIN SOD,PORK IN 0.45% NACL 25,000 UNIT in 0.45% NACL 1 250ML.BAG IV SCH (00:22)
[2020-06-21] MEDS: carvediloL 3.125 MG TAB PO SCH ×2 (06:43→17:11)
[2020-06-21 08:30] LABS: Anisocytosis Slight; Basophils % (A) 0 %; Eosinophils # (A) 0.1 k/uL (0-0.7); Eosinophils % (A) 1 %; HCT 29.3 % (39.0-53.0); HGB 9.3 gm/dL (13.0-17.5); Hypochromasia Slight; Lymphocytes # (A) 1.4 k/uL (1.0-4.8); Lymphocytes % (A) 16 %; MCH 27.9 pg (25.0-35.0); MCHC 31.6 g/dL (31.0-37.0); MCV 88.1 fL (80.0-100.0); Mean Platelet Volume 8.1; Monocytes # (A) 0.4 k/uL (0-1.0); Monocytes % (A) 5 %; Neutrophils # (A) 6.9 k/uL (1.3-7.7); Neutrophils % (A) 78 %; Platelet Count 300 k/uL (150-450); RBC 3.33 m/uL (4.30-5.90); RDW 16.9 % (11.5-15.5); WBC 8.8 k/uL (3.8-10.6)
[2020-06-21] MEDS: IPRATROPIUM-ALBUTEROL 3 ML NEB INHALATION SCH ×4 (08:38→20:04)
[2020-06-21] MEDS: ASPIRIN 81 MG PO SCH (08:42)
[2020-06-21] MEDS: SODIUM BICARBONATE TAB 650 MG TAB PO SCH ×4 (08:42→20:42)
[2020-06-21 08:56] LABS: Albumin 2.9 g/dL (3.5-5.0); Calcium 7.4 mg/dL (8.4-10.2); Phosphorus 4.1 mg/dL (2.5-4.5); Potassium 4.7 mmol/L (3.5-5.1); Total Bilirubin 0.4 mg/dL (0.2-1.3); Total Protein 5.6 g/dL (6.3-8.2)
--- NOTE | 2020-06-21 12:28 | P.PN ---
Subjective Progress Note Date: 06/21/20 Principal diagnosis: CC: weakness I encouraged patient to drink more water. Patient states that he is trying to increase his oral intake. Patient states that he had a large bowel movement this morning. He states that the nurses had to help him get to the bathroom. Objective - Vital Signs Vital signs: Vital Signs Temp 97.7 F 06/21/20 04:00 Pulse 80 06/21/20 08:52 Resp 20 06/21/20 08:00 BP 161/89 06/21/20 08:00 Pulse Ox 95 06/21/20 08:38 Intake & Output 06/20/20 06/21/20 06/21/20 18:59 06:59 18:59 Intake Total 600 1048.954 240 Output Total 485 1025 Balance 115 23.954 240 Weight 53.6 kg Intake: Intake, IV Titration 728.954 Amount Heparin Sod,Pork in 0.45% 228.954 NaCl 25,000 unit In 0.45 % NaCl 1 250ml.bag @ 18 UNITS/KG/HR 9.553 mls/hr IV .Q24H [facility] Rx#: [id number] Sodium Chloride 0.9% 1, 500 000 ml @ 50 mls/hr IV . 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 Psych - Calm and cooperative - Labs CBC & Chem 7: 06/21/20 08:03 06/21/20 08:03 Labs: Abnormal Lab Results - Last 24 Hours (Table) 06/21/20 06/21/20 06/21/20 Range/Units 08:03 08:03 08:03 RBC 3.33 L (4.30-5.90) m/uL Hgb 9.3 L (13.0-17.5) gm/dL Hct 29.3 L (39.0-53.0) % RDW 16.9 H (11.5-15.5) % APTT 50.4 H (22.0-30.0) sec Chloride 111 H (98-107) mmol/L Carbon Dioxide 18 L (22-30) mmol/L BUN 97 H (9-20) mg/dL Creatinine 3.38 H (0.66-1.25) mg/dL Calcium 7.4 L (8.4-10.2) mg/dL AST 63 H (17-59) U/L ALT 66 H (4-49) U/L Total Protein 5.6 L (6.3-8.2) g/dL Albumin 2.9 L (3.5-5.0) g/dL Assessment and Plan Assessment: Failure to thrive, unclear etiology -PT /OT consult appreciated. -IV fluids Elevated d-dimer > 4.0 -VQ scan shows intermediate probability for PE, lower extremity Dopplers negative. -Continue heparin infusion -We'll consult hematology to see if patient will need anticoagulation. We'll defer oral anticoagulation to hematology NELI on CKD stage 4 -baseline scr 2.8-2.9 , renal ultrasound unremarkable -Creatinine this morning is stable around 3.3 -Nephrology following Elevated troponin -Similar to baseline, possibly secondary to NELI -monitor Leukocytosis -No signs of active infection at this time -Possibly secondary to acute stressors -Monitor CBC Elevated CK -Likely mild rhabdo due to dehydration -Continue with IV fluids, monitor Normocytic anemia -Close to baseline -Monitor for now DVT prophylaxis -Heparin Metabolic acidosis 2/2 neli/ckd continue oral bicarb Disposition: Awaiting for nephrology to clear patient for discharge, awaiting for PT OT consult. Patient will likely require placement CODE STATUS: Full Code Discussed with: Patient Anticipated discharge date: 1-[address]: [facility]
--- NOTE | 2020-06-21 15:03 | P.PN ---
Subjective Progress Note Date: 06/21/20 Follow-up for acute kidney injury. Lying comfortable in the bed. Objective - Vital Signs Vital signs: Vital Signs Temp 97.7 F 06/21/20 04:00 Pulse 84 06/21/20 12:58 Resp 24 06/21/20 12:00 BP 171/85 06/21/20 12:00 Pulse Ox 95 06/21/20 08:38 Intake & Output 06/20/20 06/21/20 06/21/20 18:59 06:59 18:59 Intake Total 600 1048.954 240 Output Total 485 1025 Balance 115 23.954 240 Weight 53.6 kg Intake: Intake, IV Titration 728.954 Amount Heparin Sod,Pork in 0.45% 228.954 NaCl 25,000 unit In 0.45 % NaCl 1 250ml.bag @ 18 UNITS/KG/HR 9.553 mls/hr IV .Q24H [facility] Rx#: [id number] Sodium Chloride 0.9% 1, 500 000 ml @ 50 mls/hr IV . Q20H [facility] Rx#:[id number] Oral 600 320 240 Output: Urine 425 1025 Post Void Residual 60 Other: Voiding Method Urinal # Voids 1 250 # Bowel Movements 1 - Exam No acute distress S1-S2 heard Diminished breath sounds Trace edema - Labs CBC & Chem 7: 06/21/20 08:03 06/21/20 08:03 Labs: Abnormal Lab Results - Last 24 Hours (Table) 06/21/20 06/21/20 06/21/20 Range/Units 08:03 08:03 08:03 RBC 3.33 L (4.30-5.90) m/uL Hgb 9.3 L (13.0-17.5) gm/dL Hct 29.3 L (39.0-53.0) % RDW 16.9 H (11.5-15.5) % APTT 50.4 H (22.0-30.0) sec Chloride 111 H (98-107) mmol/L Carbon Dioxide 18 L (22-30) mmol/L BUN 97 H (9-20) mg/dL Creatinine 3.38 H (0.66-1.25) mg/dL Calcium 7.4 L (8.4-10.2) mg/dL AST 63 H (17-59) U/L ALT 66 H (4-49) U/L Total Protein 5.6 L (6.3-8.2) g/dL Albumin 2.9 L (3.5-5.0) g/dL Assessment and Plan Assessment: #1 acute kidney injury suspect prerenal process. 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 #3 COPD #4 metabolic acidosis secondary to acute kidney injury #5 hypotensive episodes #6 anemia with chronic kidney disease Plan: #1 renal function close to baseline. Stop IV fluids by tomorrow. #2 avoid nephrotoxic agents and hypotensive episodes #3 CK D medications
--- NOTE | 2020-06-21 15:38 | P.CONS ---
History of Present Illness - Reason for Consult Consult date: 06/21/20 increased D-Dimer, VQ interdeterminant Requesting physician: Luz Jauregui - Chief Complaint Cough and SHortness of Breath - History of Present Illness Patient with increased SOB. VQ scan interdeterminate for PE, Elevated D dimer, Negative venous doppler. Hematology consulted for increased dimer and probable PE Review of Systems All systems: negative Constitutional: Reports as per HPI Past Medical History Past Medical History: Coronary Artery Disease (CAD), COPD, CVA/TIA, Hyperlipidemia, Hypertension, Myocardial Infarction ([place]), Renal Disease Additional Past Medical History / Comment(s): chronic back pain Last Myocardial Infarction Date:: 2012 History of Any Multi-Drug Resistant Organisms: None Reported Past Surgical History: Heart Catheterization, Heart Catheterization With Stent, Orthopedic Surgery Additional Past Surgical History / Comment(s): lt femur Past Anesthesia/Blood Transfusion Reactions: No Reported Reaction Date of Last Stent Placement:: 2012 Past Psychological History: No Psychological Hx Reported Smoking Status: Current every day smoker Past Alcohol Use History: None Reported Past Drug Use History: None Reported Medications and Allergies Home Medications Medication Instructions Recorded Confirmed Type Albuterol Sulfate [Ventolin HFA] 2 puff INHALATION RT-QID PRN 04/18/20 06/18/20 History Atorvastatin Calcium [Lipitor] 20 mg PO HS 04/18/20 06/18/20 History amLODIPine [Norvasc] 10 mg PO DAILY 04/18/20 06/18/20 History Aspirin 81 mg PO DAILY #30 chew 04/20/20 06/18/20 Rx Sodium Bicarbonate Tab 650 mg PO QID #120 tab 04/20/20 06/18/20 Rx carvediloL [Coreg] 12.5 mg PO AC-BID #60 tab 04/20/20 06/18/20 Rx Gabapentin [Neurontin] 300 mg PO TID PRN 06/18/20 06/18/20 History Lisinopril [Zestril] 10 mg PO DAILY 06/18/20 06/18/20 History Allergies Allergy/AdvReac Type Severity Reaction Status Date / Time Penicillins Allergy Unknown Verified 06/18/20 19:51 Sulfa (Sulfonamide Allergy Unknown Verified 06/18/20 19:51 Antibiotics) Physical Exam Vitals: Vital Signs Temp Pulse Pulse Resp BP Pulse Ox 06/21/20 12:58 84 06/21/20 12:44 88 06/21/20 12:00 74 24 171/85 06/21/20 08:52 80 06/21/20 08:38 77 95 06/21/20 08:00 75 20 161/89 97 06/21/20 04:00 97.7 F 67 17 151/92 96 06/21/20 02:00 74 17 06/21/20 00:00 97.7 F 74 17 151/76 95 06/20/20 20:53 80 06/20/20 20:34 74 96 06/20/20 20:00 97.6 F 78 17 151/86 95 06/20/20 16:00 97.8 F 73 22 155/73 95 Intake and Output 06/21/20 06/21/20 06/21/20 06:59 14:59 22:59 Intake Total 1048.954 240 Output Total 900 Balance 148.954 240 Intake: Intake, IV Titration 728.954 Amount Heparin Sod,Pork in 0.45% 228.954 NaCl 25,000 unit In 0.45 % NaCl 1 250ml.bag @ 18 UNITS/KG/HR 9.553 mls/hr IV .Q24H [facility] Rx#: [id number] Sodium Chloride 0.9% 1, 500 000 ml @ 50 mls/hr IV . Q20H [facility] Rx#:[id number] Oral 320 240 Output: Urine 900 Other: Voiding Method Urinal # Voids 250 # Bowel Movements 1 Weight 53.6 kg - Constitutional General appearance: cooperative, thin - EENT Eyes: EOMI, PERRLA ENT: hard of hearing, NA/AT - Neck Neck: normal ROM - Respiratory Respiratory: bilateral: diminished, rhonchi - Cardiovascular Rhythm: regular - Gastrointestinal General gastrointestinal: soft - Integumentary Integumentary: pale - Neurologic Neurologic: CNII-XII intact - Musculoskeletal Musculoskeletal: gait normal - Psychiatric Psychiatric: A&O x's 3, appropriate affect, intact judgment & insight Results CBC & Chem 7: 06/21/20 08:03 06/21/20 08:03 Labs: Abnormal Lab Results - Last 24 Hours (Table) 06/21/20 06/21/20 06/21/20 Range/Units 08:03 08:03 08:03 RBC 3.33 L (4.30-5.90) m/uL Hgb 9.3 L (13.0-17.5) gm/dL Hct 29.3 L (39.0-53.0) % RDW 16.9 H (11.5-15.5) % APTT 50.4 H (22.0-30.0) sec Chloride 111 H (98-107) mmol/L Carbon Dioxide 18 L (22-30) mmol/L BUN 97 H (9-20) mg/dL Creatinine 3.38 H (0.66-1.25) mg/dL Calcium 7.4 L (8.4-10.2) mg/dL AST 63 H (17-59) U/L ALT 66 H (4-49) U/L Total Protein 5.6 L (6.3-8.2) g/dL Albumin 2.9 L (3.5-5.0) g/dL Assessment and Plan (1) Pulmonary emboli Current Visit: Yes Status: Acute Code(s): I26.99 - OTHER PULMONARY EMBOLISM WITHOUT ACUTE COR PULMONALE SNOMED Code(s): 82109178 (2) Acute exacerbation of chronic obstructive pulmonary disease Current Visit: Yes Status: Acute Code(s): J44.1 - CHRONIC OBSTRUCTIVE P ULMONARY DISEASE W (ACUTE) EXACERBATION SNOMED Code(s): 488905016 Plan: Agree with heparin drip at this time as unable to fully exclude PE CT without contrast recommended in the interim to assess for possible malignancy Acute on CHronic Renal Disease: Stage 4 per nephro - Nephro management - Epogen per nephro Normocytic Anemia: - Likley secondary to CKD - Check iron and other anemia work-up
[2020-06-21 15:47] LABS: Reticulocyte % 1.7 % (0.5-2.0)
[2020-06-21] MEDS: SODIUM CHLORIDE 0.9% 1,000 ML IV SCH (17:12)
[2020-06-21] MEDS: ATORVASTATIN 20 MG TAB PO SCH (20:42)
[2020-06-21 23:08] LABS: % Iron Saturation 28.25 (15.00-50.00)
[2020-06-21 23:30] LABS: Ferritin 587.7 ng/mL (22.0-322.0)
[2020-06-22] MEDS: HEPARIN SOD,PORK IN 0.45% NACL 25,000 UNIT in 0.45% NACL 1 250ML.BAG IV SCH (03:18)
[2020-06-22] MEDS: carvediloL 3.125 MG TAB PO SCH ×2 (06:07→17:37)
--- NOTE | 2020-06-22 07:47 | XR ---
EXAMINATION TYPE: XR chest 1V portable DATE OF EXAM: 06/22/2020 Comparison: 06/18/2020 Clinical History: 80-year-old male worsening SOB, and wheezing Findings: Heart borderline in size. Rightward patient rotation although there is a normal cardiac mediastinal c ontours. Interstitial densities have increased. No samantha consolidation or sizable effusion. Impression: Subtle interstitial opacities have developed in the interval.
[2020-06-22] MEDS: ASPIRIN 81 MG PO SCH (08:39)
[2020-06-22] MEDS: SODIUM BICARBONATE TAB 650 MG TAB PO SCH ×4 (08:39→20:05)
[2020-06-22] MEDS: IPRATROPIUM-ALBUTEROL 3 ML NEB INHALATION SCH ×4 (09:05→20:37)
[2020-06-22 09:34] LABS: Anisocytosis Slight; Basophils % (A) 0 %; Eosinophils # (A) 0.1 k/uL (0-0.7); Eosinophils % (A) 2 %; HCT 25.3 % (39.0-53.0); HGB 8.2 gm/dL (13.0-17.5); Hypochromasia Slight; Lymphocytes # (A) 1.1 k/uL (1.0-4.8); Lymphocytes % (A) 14 %; MCH 28.1 pg (25.0-35.0); MCHC 32.2 g/dL (31.0-37.0); MCV 87.2 fL (80.0-100.0); Mean Platelet Volume 7.9; Monocytes # (A) 0.4 k/uL (0-1.0); Monocytes % (A) 6 %; Neutrophils # (A) 5.7 k/uL (1.3-7.7); Neutrophils % (A) 77 %; Platelet Count 238 k/uL (150-450); RBC 2.91 m/uL (4.30-5.90); RDW 16.7 % (11.5-15.5); WBC 7.4 k/uL (3.8-10.6)
[2020-06-22 09:52] LABS: Albumin 2.5 g/dL (3.5-5.0); Calcium 7.4 mg/dL (8.4-10.2); Potassium 4.8 mmol/L (3.5-5.1); Total Bilirubin 0.4 mg/dL (0.2-1.3)
[2020-06-22] MEDS ORDERED: FUROSEMIDE 10 MG/ML 2 ML VIAL IV ONE (10:26)
--- NOTE | 2020-06-22 10:44 | P.PN ---
Subjective Progress Note Date: 06/22/20 Principal diagnosis: CC: weakness This morning patient states that he's feeling short of breath when he is lying down flat. Patient states that prior to coming in he was short of breath and at baseline could only walk to his mail and back. Chest x-ray from this morning showed mild interstitial opacity. Patient had been receiving fluids during admission for acute kidney injury. Patient likely developed mild pulmonary edema. I will order him 1 dose of IV Lasix 20 mg. Patient otherwise satting well on 2 L nasal cannula. I discussed with the nurse to make sure physical therapy sees him today. Patient states that he is extremely weak and has a difficult time walking to the bathroom. He states that he requires assistance. Objective - Vital Signs Vital signs: Vital Signs Temp 97.5 F L 06/22/20 04:00 Pulse 80 06/22/20 09:16 Resp 18 06/22/20 08:00 BP 143/77 06/22/20 08:00 Pulse Ox 97 06/22/20 08:00 Intake & Output 06/21/20 06/22/20 06/22/20 18:59 06:59 18:59 Intake Total 684 790 310 Output Total 1100 975 800 Balance -416 -185 -490 Weight 52.8 kg Intake: IV 70 Heparin Sod,Pork in 0.45% 20 NaCl 25,000 unit In 0.45 % NaCl 1 250ml.bag @ 18 UNITS/KG/HR 9.553 mls/hr IV .Q24H [facility] Rx#: [id number] Sodium Chloride 0.9% 1, 50 000 ml @ 50 mls/hr IV . Q20H [facility] Rx#:[id number] Intake, IV Titration 550 Amount Heparin Sod,Pork in 0.45% 250 NaCl 25,000 unit In 0.45 % NaCl 1 250ml.bag @ 18 UNITS/KG/HR 9.553 mls/hr IV .Q24H [facility] Rx#: [id number] Sodium Chloride 0.9% 1, 300 000 ml @ 50 mls/hr IV . Q20H [facility] Rx#:[id number] Oral 684 240 240 Output: Urine 1100 975 800 Other: Voiding Method Urinal # Voids 250 # Bowel Movements 1 - Exam General examination - Alert and Oriented 3 in NAD, patient appears chronically debilitated Heart - + S1S2 no murmurs Lungs - diminished breath sounds bilaterally Abdomen soft NT ND +ve BS Extremities - No edema TIME BROKER - Moving all 4 extremities spontaneously Psych - Calm and cooperative - Labs CBC & Chem 7: 06/22/20 09:01 06/22/20 09:01 Labs: Abnormal Lab Results - Last 24 Hours (Table) 06/21/20 06/22/20 06/22/20 Range/Units 08:03 09:01 09:01 RBC 2.91 L (4.30-5.90) m/uL Hgb 8.2 L (13.0-17.5) gm/dL Hct 25.3 L (39.0-53.0) % RDW 16.7 H (11.5-15.5) % APTT (22.0-30.0) sec Chloride 115 H (98-107) mmol/L Carbon Dioxide 18 L (22-30) mmol/L BUN 79 H (9-20) mg/dL Creatinine 2.99 H (0.66-1.25) mg/dL Glucose 126 H (74-99) mg/dL Calcium 7.4 L (8.4-10.2) mg/dL Iron 50 L (65-175) ug/dL TIBC 177 L (228-460) ug/dL Ferritin 587.7 H (22.0-322.0) ng/mL Total Protein 5.0 L (6.3-8.2) g/dL Albumin 2.5 L (3.5-5.0) g/dL Vitamin B12 1192.0 H (200.0-944.0) pg/mL 06/22/20 Range/Units 09:01 RBC (4.30-5.90) m/uL Hgb (13.0-17.5) gm/dL Hct (39.0-53.0) % RDW (11.5-15.5) % APTT 49.3 H (22.0-30.0) sec Chloride (98-107) mmol/L Carbon Dioxide (22-30) mmol/L BUN (9-20) mg/dL Creatinine (0.66-1.25) mg/dL Glucose (74-99) mg/dL Calcium (8.4-10.2) mg/dL Iron (65-175) ug/dL TIBC (228-460) ug/dL Ferritin (22.0-322.0) ng/mL Total Protein (6.3-8.2) g/dL Albumin (3.5-5.0) g/dL Vitamin B12 (200.0-944.0) pg/mL Assessment and Plan Assessment: Failure to thrive, unclear etiology -PT OT reconsult-> patient will likely require placement Elevated d-dimer > 4.0 -VQ scan shows intermediate probability for PE, lower extremity Dopplers negative. -Continue heparin infusion -Malignancy workup as per hematology. -Hematology to discuss with radiology and decide if patient will need anticoagulation for possible pulmonary embolism Mild pulmonary edema likely iatrogenic from IV fluids -Chest x-ray on 06/22/2020 shows subtle interval increase in interstitial opacity -We'll give 1 dose of IV Lasix -Discontinue fluids NELI on CKD stage 4 -baseline scr 2.8-2.9 , renal ultrasound unremarkable -Creatinine this morning is 2.9 and he appears to be back to his baseline -Nephrology following Elevated troponin -Similar to baseline, possibly secondary to NELI -monitor Leukocytosis -No signs of active infection at this time -Possibly secondary to acute stressors -Monitor CBC Normocytic anemia -Close to baseline -Monitor for now DVT prophylaxis -Heparin Metabolic acidosis 2/2 neli/ckd continue oral bicarb Disposition: Anticipate patient be ready for discharge tomorrow if shortness of breath improves. Awaiting for hematology to give recommendations regarding anticoagulation. Awaiting for reevaluation from physical therapy as patient will likely need correction facility CODE STATUS: Full Code Discussed with: Patient Anticipated discharge date: [address]: [facility]
--- NOTE | 2020-06-22 15:17 | P.PN ---
Subjective Patient is seen in follow-up for acute kidney injury and chronic kidney disease. Renal function improved since admission. No active chest pain or shortness breath. Hemodynamically stable. Currently off IV fluids. He did receive a dose of Lasix this morning. Vital signs are stable. General: The patient appeared well nourished and normally developed. HEENT: Head exam is unremarkable. Neck is without jugular venous distension. LUNGS: Breath sounds decreased. HEART: Rate and Rhythm are regular. ABDOMEN: Soft, nontender. EXTREMITITES: No edema. Objective - Vital Signs Vital signs: Vital Signs Temp 97.5 F L 06/22/20 04:00 Pulse 68 06/22/20 11:54 Resp 18 06/22/20 11:09 BP 166/91 06/22/20 11:09 Pulse Ox 93 L 06/22/20 11:09 Intake & Output 06/21/20 06/22/20 06/22/20 18:59 06:59 18:59 Intake Total 684 790 430 Output Total 8066 530 4384 Balance -416 185 -698 Weight 52.8 kg Intake: IV 70 Heparin Sod,Pork in 0.45% 20 NaCl 25,000 unit In 0.45 % NaCl 1 250ml.bag @ 18 UNITS/KG/HR 9.553 mls/hr IV .Q24H [facility] Rx#: [id number] Sodium Chloride 0.9% 1, 50 000 ml @ 50 mls/hr IV . Q20H [facility] Rx#:[id number] Intake, IV Titration 550 Amount Heparin Sod,Pork in 0.45% 250 NaCl 25,000 unit In 0.45 % NaCl 1 250ml.bag @ 18 UNITS/KG/HR 9.553 mls/hr IV .Q24H [facility] Rx#: [id number] Sodium Chloride 0.9% 1, 300 000 ml @ 50 mls/hr IV . Q20H [facility] Rx#:[id number] Oral 684 240 360 Output: Urine 8429 540 7506 Other: Voiding Method Urinal # Voids 250 1 # Bowel Movements 1 0 - Labs CBC & Chem 7: 06/22/20 09:01 06/22/20 09:01 Labs: Abnormal Lab Results - Last 24 Hours (Table) 06/21/20 06/22/20 06/22/20 Range/Units 08:03 09:01 09:01 RBC 2.91 L (4.30-5.90) m/uL Hgb 8.2 L (13.0-17.5) gm/dL Hct 25.3 L (39.0-53.0) % RDW 16.7 H (11.5-15.5) % APTT (22.0-30.0) sec Chloride 115 H (98-107) mmol/L Carbon Dioxide 18 L (22-30) mmol/L BUN 79 H (9-20) mg/dL Creatinine 2.99 H (0.66-1.25) mg/dL Glucose 126 H (74-99) mg/dL Calcium 7.4 L (8.4-10.2) mg/dL Iron 50 L (65-175) ug/dL TIBC 177 L (228-460) ug/dL Ferritin 587.7 H (22.0-322.0) ng/mL Total Protein 5.0 L (6.3-8.2) g/dL Albumin 2.5 L (3.5-5.0) g/dL Vitamin B12 1192.0 H (200.0-944.0) pg/mL 06/22/ Range/Units 09:01 RBC (4.30-5.90) m/uL Hgb (13.0-17.5) gm/dL Hct (39.0-53.0) % RDW (11.5-15.5) % APTT 49.3 H (22.0-30.0) sec Chloride (98-107) mmol/L Carbon Dioxide (22-30) mmol/L BUN (9-20) mg/dL Creatinine (0.66-1.25) mg/dL Glucose (74-99) mg/dL Calcium (8.4-10.2) mg/dL Iron (65-175) ug/dL TIBC (228-460) ug/dL Ferritin (22.0-322.0) ng/mL Total Protein (6.3-8.2) g/dL Albumin (3.5-5.0) g/dL Vitamin B12 (200.0-944.0) pg/mL Assessment and Plan Plan: Assessment: 1. Acute kidney injury mostly prerenal improved with IV hydration. Creatinine 2.99 today. 2. Chronic kidney disease stage IV secondary to nephrosclerosis with baseline creatinine in the range of 2.8 2.9. 3. Metabolic acidosis secondary to acute kidney injury and IV fluids. 4. Anemia of chronic kidney disease. Iron replete. 5. Right renal atrophy. Plan: Remains off IV fluids. Encouraged oral intake. Maintain oral bicarb. Avoid nephrotoxins. Add Aranesp.
[2020-06-22 15:45] LABS: Protein, Total 4.7 g/dL (6.2-8.2)
[2020-06-22] MEDS ORDERED: DARBEPOETIN ALFA 40 MCG/0.4 ML SYRINGE SQ SCH (16:00)
[2020-06-22] MEDS: ATORVASTATIN 20 MG TAB PO SCH (20:05)
--- NOTE | 2020-06-22 21:56 | P.PN ---
<Carlota Rodriguez - Last Filed: 06/22/20 21:52> Subjective Progress Note Date: 06/22/20 Principal diagnosis: Shortness of breath COPD Exacerbation We have reviewed the Perfusion study in detail, as well as with radiology. WHo feels there is actually low to intermediate probability of Pulmonary embolism. At this time continue heparin drip. Objective - Vital Signs Vital signs: Vital Signs Temp 97.5 F L 06/22/20 04:00 Pulse 81 06/22/20 20:51 Resp 18 06/22/20 16:00 BP 164/82 06/22/20 16:00 Pulse Ox 97 06/22/20 20:38 Intake & Output 06/22/20 06/22/20 06/23/20 06:59 18:59 06:59 Intake Total 790 799.6 Output Total 975 1525 Balance -185 -725.4 Weight 52.8 kg Intake: IV 199.6 Heparin Sod,Pork in 0.45% 99.6 NaCl 25,000 unit In 0.45 % NaCl 1 250ml.bag @ 18 UNITS/KG/HR 9.553 mls/hr IV .Q24H [facility] Rx#: [id number] Sodium Chloride 0.9% 1, 100 000 ml @ 50 mls/hr IV . Q20H [facility] Rx#:[id number] Intake, IV Titration 550 Amount Heparin Sod,Pork in 0.45% 250 NaCl 25,000 unit In 0.45 % NaCl 1 250ml.bag @ 18 UNITS/KG/HR 9.553 mls/hr IV .Q24H [facility] Rx#: [id number] Sodium Chloride 0.9% 1, 300 000 ml @ 50 mls/hr IV . Q20H [facility] Rx#:[id number] Oral 240 600 Output: Urine 975 1525 Other: Voiding Method Urinal # Voids 0 # Bowel Movements 0 - Labs CBC & Chem 7: 06/22/20 09:01 06/22/20 09:01 Labs: Abnormal Lab Results - Last 24 Hours (Table) 06/21/20 06/22/20 06/22/20 Range/Units 08:03 09:01 09:01 RBC 2.91 L (4.30-5.90) m/uL Hgb 8.2 L (13.0-17.5) gm/dL Hct 25.3 L (39.0-53.0) % RDW 16.7 H (11.5-15.5) % APTT (22.0-30.0) sec Chloride 115 H (98-107) mmol/L Carbon Dioxide 18 L (22-30) mmol/L BUN 79 H (9-20) mg/dL Creatinine 2.99 H (0.66-1.25) mg/dL Glucose 126 H (74-99) mg/dL Calcium 7.4 L (8.4-10.2) mg/dL Iron 50 L (65-175) ug/dL TIBC 177 L (228-460) ug/dL Ferritin 587.7 H (22.0-322.0) ng/mL Total Protein 5.0 L (6.3-8.2) g/dL Total Protein (PEP) (6.2-8.2) g/dL Albumin 2.5 L (3.5-5.0) g/dL Vitamin B12 1192.0 H (200.0-944.0) pg/mL 06/22/20 06/22/20 Range/Units 09:01 09:01 RBC (4.30-5.90) m/uL Hgb (13.0-17.5) gm/dL Hct (39.0-53.0) % RDW (11.5-15.5) % APTT 49.3 H (22.0-30.0) sec Chloride (98-107) mmol/L Carbon Dioxide (22-30) mmol/L BUN (9-20) mg/dL Creatinine (0.66-1.25) mg/dL Glucose (74-99) mg/dL Calcium (8.4-10.2) mg/dL Iron (65-175) ug/dL TIBC (228-460) ug/dL Ferritin (22.0-322.0) ng/mL Total Protein (6.3-8.2) g/dL Total Protein (PEP) 4.7 L (6.2-8.2) g/dL Albumin (3.5-5.0) g/dL Vitamin B12 (200.0-944.0) pg/mL Assessment and Plan (1) Pulmonary emboli Current Visit: Yes Status: Acute Code(s): I26.99 - OTHER PULMONARY EMBOLISM WITHOUT ACUTE COR PULMONALE SNOMED Code(s): 54797745 (2) Acute exacerbation of chronic obstructive pulmonary disease Current Visit: Yes Status: Acute Code(s): J44.1 - CHRONIC OBSTRUCTIVE PULMONARY DISEASE W (ACUTE) EXACERBATION SNOMED Code(s): 698737851 Plan: CT without contrast recommended in the interim to assess for possible malignancy Acute on CHronic Renal Disease: Stage 4 per nephro - Nephro management - Epogen per nephro Normocytic Anemia: - Likley secondary to CKD - Check iron and other anemia work-up Increased D-Dimer and abnormal perfusion Study: - Continue Heparin drip this evening Physician Attest" I have completed the full history and physical and agree with above dictation, dictated as a scribe <Carl Nielson - Last Filed: 06/23/20 00:18> Objective - Vital Signs Vital signs: Vital Signs Temp 98.2 F 06/22/20 20:00 Pulse 81 06/22/20 20:51 Resp 17 06/22/20 20:00 BP 190/93 06/22/20 20:00 Pulse Ox 97 06/22/20 20:38 Intake & Output 06/22/20 06/22/20 06/23/20 06:59 18:59 06:59 Intake Total 790 799.6 330 Output Total 975 1525 575 Balance -185 -725.4 -245 Weight 52.8 kg Intake: IV 199.6 Heparin Sod,Pork in 0.45% 99.6 NaCl 25,000 unit In 0.45 % NaCl 1 250ml.bag @ 18 UNITS/KG/HR 9.553 mls/hr IV .Q24H [facility] Rx#: [id number] Sodium Chloride 0.9% 1, 100 000 ml @ 50 mls/hr IV . Q20H [facility] Rx#:[id number] Intake, IV Titration 550 30 Amount Heparin Sod,Pork in 0.45% 250 NaCl 25,000 unit In 0.45 % NaCl 1 250ml.bag @ 18 UNITS/KG/HR 9.553 mls/hr IV .Q24H [facility] Rx#: [id number] Sodium Chloride 0.9% 1, 300 30 000 ml @ 50 mls/hr IV . Q20H [facility] Rx#:[id number] Oral 240 600 300 Output: Urine 975 1525 575 Other: Voiding Method Urinal Urinal # Voids 0 # Bowel Movements 0 - Labs CBC & Chem 7: 06/22/20 09:01 06/22/20 09:01 Labs: Abnormal Lab Results - Last 24 Hours (Table) 06/22/20 06/22/20 06/22/20 Range/Units 09:01 09:01 09:01 RBC 2.91 L (4.30-5.90) m/uL Hgb 8.2 L (13.0-17.5) gm/dL Hct 25.3 L (39.0-53.0) % RDW 16.7 H (11.5-15.5) % APTT 49.3 H (22.0-30.0) sec Chloride 115 H (98-107) mmol/L Carbon Dioxide 18 L (22-30) mmol/L BUN 79 H (9-20) mg/dL Creatinine 2.99 H (0.66-1.25) mg/dL Glucose 126 H (74-99) mg/dL Calcium 7.4 L (8.4-10.2) mg/dL Total Protein 5.0 L (6.3-8.2) g/dL Total Protein (PEP) (6.2-8.2) g/dL Albumin 2.5 L (3.5-5.0) g/dL 06/22/20 Range/Units 09:01 RBC (4.30-5.90) m/uL Hgb (13.0-17.5) gm/dL Hct (39.0-53.0) % RDW (11.5-15.5) % APTT (22.0-30.0) sec Chloride (98-107) mmol/L Carbon Dioxide (22-30) mmol/L BUN (9-20) mg/dL Creatinine (0.66-1.25) mg/dL Glucose (74-99) mg/dL Calcium (8.4-10.2) mg/dL Total Protein (6.3-8.2) g/dL Total Protein (PEP) 4.7 L (6.2-8.2) g/dL Albumin (3.5-5.0) g/dL Assessment and Plan Plan: Case d/w IM and Radiology. VQ scan report mentions only 1 small defect that " may be mismatched". It does not mention if the defect is a perfusion one which would indicate a possible PE. Case d/w Radiology. On repeat review the defects all appear to be mismatched and correspond to developing opacities on CXR, and probability was felt to be low intermediate at most, or low In my opinion, this level of evidence does not appear to be sufficient to commit the pt to lifelong anticoagulation ( which would be normally recommended for an unprovoked PE) - Continue heparin for now - Will discuss with IM in am, including additional imaging , if felt to be needed for decision making ( ? VQ ) - Check CT w/o contrast to evaluate developing opacities noted on CXR
[2020-06-23] MEDS: HEPARIN SOD,PORK IN 0.45% NACL 25,000 UNIT in 0.45% NACL 1 250ML.BAG IV SCH (05:36)
[2020-06-23] MEDS: carvediloL 3.125 MG TAB PO SCH (06:27)
[2020-06-23 07:53] LABS: Anisocytosis Slight; Basophils % (A) 0 %; Eosinophils # (A) 0.2 k/uL (0-0.7); Eosinophils % (A) 2 %; HCT 26.9 % (39.0-53.0); HGB 8.7 gm/dL (13.0-17.5); Hypochromasia Slight; Lymphocytes # (A) 1.2 k/uL (1.0-4.8); Lymphocytes % (A) 14 %; MCH 27.9 pg (25.0-35.0); MCHC 32.3 g/dL (31.0-37.0); MCV 86.5 fL (80.0-100.0); Mean Platelet Volume 7.7; Monocytes # (A) 0.6 k/uL (0-1.0); Monocytes % (A) 7 %; Neutrophils # (A) 6.5 k/uL (1.3-7.7); Neutrophils % (A) 76 %; Platelet Count 258 k/uL (150-450); RBC 3.11 m/uL (4.30-5.90); RDW 16.9 % (11.5-15.5); WBC 8.5 k/uL (3.8-10.6)
[2020-06-23 08:27] VITALS: RESP 20
[2020-06-23] MEDS: ASPIRIN 81 MG PO SCH (08:27)
[2020-06-23] MEDS: SODIUM BICARBONATE TAB 650 MG TAB PO SCH ×2 (08:27→12:55)
--- NOTE | 2020-06-23 08:32 | CT ---
EXAMINATION TYPE: CT chest wo con DATE OF EXAM: 06/23/2020 COMPARISON: Chest x-ray yesterday and older studies. CT chest April 18, 2020 HISTORY: Dyspnea, Abnormal CXR, history of COPD CT DLP: 255.6 mGycm. Automated Exposure Control for Dose Reduction was Utilized. TECHNIQUE: CT scan of the thorax is performed without IV contrast. FINDINGS: Exam slightly suboptimal as patient has difficulty holding breath. LUNGS: [id number] underlying emphysematous changes redemonstrated. Mild/moderate right greater than left biapical pleural/ scarring redemonstrated. Persistent reticular interstitial barker es in the posterior inferior aspect right upper lobe. New small tiny right greater than left bilatera l pleural effusions with associated compressive atelectasis. There is reticulation along the major fi ssures bilaterally likely reflecting mild edema and/or atelectatic change. In the right lower lobe on current study corresponding to x-ray there is some irregular reticulonodular consolidation laterally new from prior CT. Stable 2 to 3 mm calcified left lower lobe nodule or granuloma image 46. No pneum othorax seen bilaterally. Mild central peribronchial wall thickening bilaterally redemonstrated. MEDIASTINUM: Lack of IV contrast is noted to limit evaluation for mediastinal and especially hilar ad enopathy. There are no definitive new greater than 1 cm noncalcified hilar or mediastinal lymph nodes . Calcified left hilar lymph nodes redemonstrated. No cardiomegaly or pericardial effusion is seen. [id number]-[id number] coronary artery calcification and stents. Qpsr-[id number] calcified plaque of the aorta. Main pulmonary artery measures 2.7 cm in diameter. Adjacent ascending aorta measures up to 3. 5 cm in diameter image 26. OTHER: Slight S-shaped scoliotic curvature. Mild/moderate multilevel spurring in the spine. IMPRESSION: Mild to moderate underlying emphysematous change. New small to tiny right greater than le ft pleural effusions. Stable dependent atelectatic change and/or mild edema. New peripheral irregular consolidation in the right lower lobe suspicious for acute infectious process. Correlate clinically.
[2020-06-23 08:45] LABS: Albumin 2.6 g/dL (3.5-5.0); Calcium 7.8 mg/dL (8.4-10.2); Magnesium 1.8 mg/dL (1.6-2.3); Potassium 4.9 mmol/L (3.5-5.1); Total Bilirubin 0.5 mg/dL (0.2-1.3); Total Protein 5.1 g/dL (6.3-8.2)
[2020-06-23] MEDS: IPRATROPIUM-ALBUTEROL 3 ML NEB INHALATION SCH ×2 (09:05→11:45)
[2020-06-23 09:40] LABS: Free Kappa Lt Chain Qnt, Serum 4.94 mg/dL (0.33-1.94)
--- NOTE | 2020-06-23 10:36 | P.DS ---
Providers Date of admission: 06/18/20 18:02 Expected date of discharge: 06/23/20 Attending physician: Alesha Montelongo DO Consults: 06/18/20 18:02 Consult Physician Routine Consulting Provider: Elsa Pretty Consult Reason/Comments: arf Do you want consulting provider notified?: Yes 06/21/20 08:50 Consult Physician Routine Consulting Provider: Carl Nielson Consult Reason/Comments: elevated Ddimer, indeterminate V/Q, reccommendation for oral AC if needed Do you want consulting provider notified?: Yes Primary care physician: Kodi Isabel MD Hospital Course: This is a 80-year-old male with complex past medical history noted below who presented to the emergency room with progressive weakness. Patient was evaluated in the ER and admitted to the hospital for further management of his medical problems noted below. 1. Right lower lobe pneumonia, will finish 5 days course of Levaquin 250 mg daily. Patient has ALLERGY to penicillin. 2. Elevated d-dimer, very less likely PE given her clinical presentation. Anticoagulation will be discontinued. VQ scan showed intermediate probability for PE that this is probably secondary to underlying COPD/emphysema. Study was rereviewed with radiology by the oncologist who agreed to discontinue anticoagulation. Lower extremity Doppler negative for DVT. 3. Acute kidney injury on stage IIIB chronic kidney disease. Creatinine was back to baseline around 2.8. Seen and evaluated by nephrology. Continue sodium bicarbonate. 4. Physical debility: Seen and evaluated by PT/OT. Discharge planning to [facility] for subacute rehab 5. Essential hypertension, blood pressure not well controlled. Resume home dose of lisinopril and amlodipine 6. Anemia of chronic disease: Hemoglobin stable around 8.5 Patient will be discharged in a stable condition. For further details about this hospitalization please refer to the electronic chart. Patient Condition at Discharge: Stable Plan - Discharge Summary Discharge Rx Participant: No New Discharge Prescriptions: New Ipratropium-Albuterol Nebulize [Duoneb 0.5 mg-3 mg/3 ml Soln] 3 ml INHALATION RT-QID PRN ml PRN Reason: Shortness Of Breath Levofloxacin [Levaquin] 250 mg PO DAILY 5 Days #5 tab Continue amLODIPine [Norvasc] 10 mg PO DAILY Atorvastatin Calcium [Lipitor] 20 mg PO HS Albuterol Sulfate [Ventolin HFA] 2 puff INHALATION RT-QID PRN PRN Reason: Shortness Of Breath Aspirin 81 mg PO DAILY #30 chew carvediloL [Coreg] 12.5 mg PO AC-BID #60 tab Sodium Bicarbonate Tab 650 mg PO QID #120 tab Gabapentin [Neurontin] 300 mg PO TID PRN PRN Reason: Pain Lisinopril [Zestril] 10 mg PO DAILY Discharge Medication List Albuterol Sulfate [Ventolin HFA] 2 puff INHALATION RT-QID PRN 04/18/20 [History] Atorvastatin Calcium [Lipitor] 20 mg PO HS 04/18/20 [History] amLODIPine [Norvasc] 10 mg PO DAILY 04/18/20 [History] Aspirin 81 mg PO DAILY #30 chew 04/20/20 [Rx] Sodium Bicarbonate Tab 650 mg PO QID #120 tab 04/20/20 [Rx] carvediloL [Coreg] 12.5 mg PO AC-BID #60 tab 04/20/20 [Rx] Gabapentin [Neurontin] 300 mg PO TID PRN 06/18/20 [History] Lisinopril [Zestril] 10 mg PO DAILY 06/18/20 [History] Ipratropium-Albuterol Nebulize [Duoneb 0.5 mg-3 mg/3 ml Soln] 3 ml INHALATION RT-QID PRN ml 06/23/20 [Rx] Levofloxacin [Levaquin] 250 mg PO DAILY 5 Days #5 tab 06/23/20 [Rx] Follow up Appointment(s)/Referral(s): [facility], [NON-STAFF] - Kodi Isabel MD [Primary Care Provider] - 1-2 days Discharge Disposition: TRANSFER TO SNF/ECF
[2020-06-23 11:41] VITALS: BP 175/94; TEMP 97.6
[2020-06-23 11:44] LABS: Immunoglobulin M 55.9 mg/dL (40.0-280.0)
[2020-06-23 11:55] VITALS: PULSE 80
--- NOTE | 2020-06-23 12:50 | P.PN ---
Subjective Patient is seen in follow-up for acute kidney injury and chronic kidney disease. Renal function improved since admission. No active chest pain or shortness breath. Hemodynamically stable. Blood pressure on the higher side. Vital signs are stable. General: The patient appeared well nourished and normally developed. HEENT: Head exam is unremarkable. Neck is without jugular venous distension. LUNGS: Breath sounds decreased. HEART: Rate and Rhythm are regular. ABDOMEN: Soft, nontender. EXTREMITITES: No edema. Objective - Vital Signs Vital signs: Vital Signs Temp 97.6 F 06/23/20 11:24 Pulse 80 06/23/20 11:54 Resp 20 06/23/20 11:24 BP 175/94 06/23/20 11:24 Pulse Ox 94 L 06/23/20 11:24 Intake & Output 06/22/20 06/23/20 06/23/20 18:59 06:59 18:59 Intake Total 799.6 580 120 Output Total 1525 1025 901 Balance -725.4 -445 -781 Weight 52.6 kg Intake: IV 199.6 Heparin Sod,Pork in 0.45% 99.6 NaCl 25,000 unit In 0.45 % NaCl 1 250ml.bag @ 18 UNITS/KG/HR 9.553 mls/hr IV .Q24H [facility] Rx#: [id number] Sodium Chloride 0.9% 1, 100 000 ml @ 50 mls/hr IV . Q20H [facility] Rx#:[id number] Intake, IV Titration 280 Amount Heparin Sod,Pork in 0.45% 250 NaCl 25,000 unit In 0.45 % NaCl 1 250ml.bag @ 18 UNITS/KG/HR 9.553 mls/hr IV .Q24H [facility] Rx#: [id number] Sodium Chloride 0.9% 1, 30 000 ml @ 50 mls/hr IV . Q20H [facility] Rx#:[id number] Oral 600 300 120 Output: Urine 1525 1025 901 Other: Voiding Method Urinal # Voids 0 # Bowel Movements 0 - Labs CBC & Chem 7: 06/23/20 07:22 06/23/20 07:22 Labs: Abnormal Lab Results - Last 24 Hours (Table) 06/22/20 06/22/20 06/23/20 Range/Units 09:01 09:01 07:22 RBC 3.11 L (4.30-5.90) m/uL Hgb 8.7 L (13.0-17.5) gm/dL Hct 26.9 L (39.0-53.0) % RDW 16.9 H (11.5-15.5) % APTT (22.0-30.0) sec Chloride (98-107) mmol/L Carbon Dioxide (22-30) mmol/L BUN (9-20) mg/dL Creatinine (0.66-1.25) mg/dL Calcium (8.4-10.2) mg/dL Total Protein (6.3-8.2) g/dL Total Protein (PEP) 4.7 L (6.2-8.2) g/dL Albumin (3.5-5.0) g/dL IgG 558.0 L (700.0-1600.0) mg/dL Free [place] LC, Quant 4.94 H (0.33-1.94) mg/dL Free Lambda LC, Quant 3.51 H (0.57-2.63) mg/dL 06/23/20 06/23/20 Range/Units 07:22 07:22 RBC (4.30-5.90) m/uL Hgb (13.0-17.5) gm/dL Hct (39.0-53.0) % RDW (11.5-15.5) % APTT 51.2 H (22.0-30.0) sec Chloride 115 H (98-107) mmol/L Carbon Dioxide 21 L (22-30) mmol/L BUN 70 H (9-20) mg/dL Creatinine 2.86 H (0.66-1.25) mg/dL Calcium 7.8 L (8.4-10.2) mg/dL Total Protein 5.1 L (6.3-8.2) g/dL Total Protein (PEP) (6.2-8.2) g/dL Albumin 2.6 L (3.5-5.0) g/dL IgG (700.0-1600.0) mg/dL Free [place] LC, Quant (0.33-1.94) mg/dL Free Lambda LC, Quant (0.57-2.63) mg/dL Assessment and Plan Plan: Assessment: 1. Acute kidney injury mostly prerenal improved with IV hydration. Creatinine 2.86 today. 2. Chronic kidney disease stage IV secondary to nephrosclerosis with baseline creatinine in the range of 2.8-2.9. 3. Metabolic acidosis secondary to acute kidney injury and IV fluids. Better. Maintained on oral bicarbonate. 4. Anemia of chronic kidney disease. Iron replete. Maintained on Aranesp. 5. Right renal atrophy. 6. Hypertension with chronic kidney disease. Plan: Remains off IV fluids. Encouraged oral intake. Avoid nephrotoxins. Resume amlodipine 10 mg once daily.
[2020-06-23] MEDS ORDERED: amLODIPine 10 MG TAB PO SCH (13:00)
[2020-06-25 14:17] LABS: Albumin 2.25 g/dL (3.80-4.90); Gamma Globulin 0.53 g/dL (0.70-1.50)
== END 2020-06-23 14:56 | DRG 683 ==
LOC: EC 15:57 → 3SCARD 18:02
PROVIDERS: ADMIT Internal Medicine; ATTEND Internal Medicine
DX: N17.9 Acute kidney failure, unspecified (principal); E87.2 Acidosis; J44.1 Chronic obstructive pulmonary disease with (acute) exacerbation; J81.1 Chronic pulmonary edema; J44.0 Chronic obstructive pulmonary disease with (acute) lower respiratory infection; Z20.828 Contact with and (suspected) exposure to other viral communicable diseases; N18.4 Chronic kidney disease, stage 4 (severe); R79.89 Other specified abnormal findings of blood chemistry; R53.81 Other malaise; I13.10 Hypertensive heart and chronic kidney disease without heart failure, with stage 1 through stage 4 chronic kidney disease, or unspecified chronic kidney disease; G89.29 Other chronic pain; M54.9 Dorsalgia, unspecified; F17.200 Nicotine dependence, unspecified, uncomplicated; E86.0 Dehydration; R09.02 Hypoxemia; I95.9 Hypotension, unspecified; I25.10 Atherosclerotic heart disease of native coronary artery without angina pectoris; R62.7 Adult failure to thrive; D63.1 Anemia in chronic kidney disease; E78.5 Hyperlipidemia, unspecified; Z79.899 Other long term (current) drug therapy; Z79.82 Long term (current) use of aspirin; Z88.0 Allergy status to penicillin; Z88.2 Allergy status to sulfonamides; Z86.73 Personal history of transient ischemic attack (TIA), and cerebral infarction without residual deficits; I25.2 Old myocardial infarction; Z91.14 Patient's other noncompliance with medication regimen; Z98.890 Other specified postprocedural states; Z95.5 Presence of coronary angioplasty implant and graft
CPT/HCPCS: 36415; 71045; 71250; 76770; 78582; 80053; 81001; 82550; 82607; 82668; 82728; 82746; 82784; 83540; 83550; 83615; 83735; 83880; 83883; 83921; 84100; 84165; 84300; 84484; 84540; 85025; 85045; 85379; 85610; 85730; 86140; 86334; 87635; 93005; 93970; 94640; 94645; 94760; 96361; 96374; 99291

== ENCOUNTER 2020-09-06 21:33 | Inpatient (IN) | payer MEDICARE ==
--- NOTE | 2020-09-06 22:49 | XR ---
EXAMINATION TYPE: XR Hip RT and AP Pelvis DATE OF EXAM: 09/06/2020 COMPARISON: NONE HISTORY: Hip pain TECHNIQUE: 3 views FINDINGS: The proximal right femur appears intact without evidence of a fracture. There is mild aceta bular spurring. The pelvic ring is intact. There is ankylosis of the intertrochanteric femur with the left ilium. Sacroiliac joints are intact. IMPRESSION: No acute abnormality of the pelvis and right hip. No change compared to CT scan of 020.
[2020-09-06] MEDS ORDERED: ONDANSETRON 4 MG/2 ML VIAL IVP PRN (23:18)
[2020-09-06] MEDS ORDERED: NALOXONE 0.4 MG/ML 1 ML VIAL IV PRN (23:18)
--- NOTE | 2020-09-06 23:21 | ED ---
General Adult HPI - General Source: patient, EMS, RN notes reviewed Mode of arrival: EMS Limitations: no limitations <Shira Reynoso - Last Filed: 09/06/20 23:26> <Janine James - Last Filed: 09/07/20 15:07> - General Chief complaint: Recheck/Abnormal Lab/Rx Stated complaint: Kidney Pain Time Seen by Provider: 09/06/20 21:41 - History of Present Illness Initial comments: 80-year-old male patient presents to the emergency department today as a transfer from [facility] for pneumonia, acute kidney injury, bilateral pleural effusions, and lung nodules. Patient states that he initially presented to [place] for right hip pain. States that he was having so much pain he could not walk on it. States he had a fall about a week ago, but he hip did not start hurting until today. He underwent extensive testing at [place] including labs and CT chest, abdomen, and pelvis which revealed the above findings and he was transferred here for further evaluation and treatment. Patient denies any recent rash, fever, chills, cough, shortness of breath, chest pain, nausea, vomiting, diarrhea, constipation, back pain, numbness, tingling, dizziness, weakness, hematuria, dysuria, urinary urgency, urinary frequency, headache, visual changes, or any other complaints. (Shira Reynoso) - Related Data Home Medications Medication Instructions Recorded Confirmed Albuterol Sulfate [Ventolin HFA] 2 puff INHALATION RT-Q4H PRN 04/18/20 09/07/20 Gabapentin [Neurontin] 300 mg PO TID PRN 06/18/20 09/07/20 Escitalopram [Lexapro] 10 mg PO DAILY 09/07/20 09/07/20 hydrALAZINE HCL [Apresoline] 20 mg PO QID 09/07/20 09/07/20 traZODone HCL 50 mg PO HS 09/07/20 09/07/20 Previous Rx's Medication Instructions Recorded Aspirin 81 mg PO DAILY #30 chew 04/20/20 Sodium Bicarbonate Tab 650 mg PO QID #120 tab 04/20/20 carvediloL [Coreg] 12.5 mg PO AC-BID #60 tab 04/20/20 Ipratropium-Albuterol Nebulize 3 ml INHALATION RT-QID PRN ml 06/23/20 [Duoneb 0.5 mg-3 mg/3 ml Soln] Allergies Allergy/AdvReac Type Severity Reaction Status Date / Time Penicillins Allergy Unknown Verified 09/07/20 09:37 Sulfa (Sulfonamide Allergy Unknown Verified 09/07/20 09:37 Antibiotics) prednisone AdvReac Confusion Verified 09/07/20 09:42 Review of Systems ROS Other: All systems not noted in ROS Statement are negative. <Shira Reynoso - Last Filed: 09/06/20 23:26> ROS Other: All systems not noted in ROS Statement are negative. <Janine James - Last Filed: 09/07/20 15:07> ROS Statement: Those systems with pertinent positive or pertinent negative responses have been documented in the HPI. Past Medical History Past Medical History: Coronary Artery Disease (CAD), COPD, CVA/TIA, Hyperlipidemia, Hypertension, Myocardial Infarction ([place]), Renal Disease Additional Past Medical History / Comment(s): chronic back pain Last Myocardial Infarction Date:: 2012 History of Any Multi-Drug Resistant Organisms: None Reported Past Surgical History: Heart Catheterization, Heart Catheterization With Stent, Orthopedic Surgery Additional Past Surgical History / Comment(s): lt femur Past Anesthesia/Blood Transfusion Reactions: No Reported Reaction Date of Last Stent Placement:: 2012 Past Psychological History: No Psychological Hx Reported Smoking Status: Current every day smoker Past Alcohol Use History: None Reported Past Drug Use History: None Reported <Shira Reynoso - Last Filed: 09/06/20 23:26> General Exam Limitations: no limitations General appearance: alert, in no apparent distress, other (This is a well- developed, thin appearing elderly male patient in no acute distress. Vital signs upon presentation are temperature 98.4F, pulse 88, respirations 18, blood pressure 129/86, pulse ox 95% on room air.) Eye exam: Present: normal appearance, PERRL, EOMI. Absent: scleral icterus, conjunctival injection, periorbital swelling ENT exam: Present: normal exam, normal oropharynx, mucous membranes moist Respiratory exam: Present: normal lung sounds bilaterally. Absent: respiratory distress, wheezes, rales, rhonchi, stridor Cardiovascular Exam: Present: regular rate, normal rhythm, normal heart sounds. Absent: systolic murmur, diastolic murmur, rubs, gallop, clicks GI/Abdominal exam: Present: soft, normal bowel sounds. Absent: distended, tenderness, guarding, rebound, rigid Extremities exam: Present: full ROM, tenderness (Right anterior hip tenderness), normal capillary refill, other (Skin to the right lower trauma he is pink, warm, dry. Cap refills less than 3 seconds. Pedal post tibial pulses intact. There does appear to be some hour rotation with mild shortening.). Absent: normal inspection, pedal edema, joint swelling, calf tenderness Neurological exam: Present: alert, oriented X3, CN II-XII intact Psychiatric exam: Present: normal affect, normal mood Skin exam: Present: warm, dry, intact, normal color. Absent: rash <Shira Reynoso - Last Filed: 09/06/20 23:26> Course Vital Signs 09/06/20 09/06/20 09/07/20 21:47 22:53 00:22 Temperature 98.4 F Pulse Rate 88 90 Respiratory 18 20 20 Rate Blood Pressure 129/86 142/90 O2 Sat by Pulse 95 98 Oximetry Medical Decision Making - Radiology Data Radiology results: report reviewed, image reviewed <Shira Reynoso - Last Filed: 09/06/20 23:26> - Lab Data Result diagrams: 09/07/20 08:06 09/07/20 08:06 <Janine James - Last Filed: 09/07/20 15:07> - Medical Decision Making 80-year-old male patient presents as a transfer from [facility] for pneumonia, right pleural effusion acute kidney injury, and pulmonary nodules concerning for malignancy. Labs were reviewed and did reveal elevated white blood cell count at 11.6, hemoglobin is 9.3, lactic acid is 1.7, BUN 61, creatinine 3.5 with GFR at 17. Sodium 134, potassium 5.1. Tested negative on his rapid COVID-[address] chest, abdomen, pelvis, report was reviewed and showed 2 small nodular opacities in the right lung not observed on a previous study from March 2020, possibility of malignancy is strongly considered. Moderate right-sided pleural effusion with right basilar atelectasis. Colonic diverticulosis with no diverticulitis, small amount of streaking calculus in the left kidney with no evidence of hydronephrosis. Tiny high attenuation focus in the gallbladder seen ingesting possible cholelithiasis. Patient had initially went to the hospital for right hip pain unable to bear weight. No mention was made of the hip and the CT report. Did perform x-ray with pelvis which was negative. We will add a femur just to be safe this is pending. He'll be admitted to the hospital for further evaluation. He was also given azithromycin and Rocephin for possibility of pneumonia given CT findings. Dr. Arrieta is accepting. Case discussed with my attending Dr. James. (Shira Reynoso) I was available for consultation in the emergency department. The history and physical exam were done by the midlevel provider. I was consulted for this patients care. I reviewed the case with the midlevel provider and based on their presentation of the patient, I agree with the assessment, medical decision making and plan of care as documented. Chart was dictated using [employer] dictation software. Attempts were made to correct any dictation errors however some typographical errors may persist. Patient was seen during a national state of emergency due to the Covid-19 pandemic. (Janine James) - Radiology Data 2 views of the right hip and pelvis are obtained. Report was reviewed in its entirety. Impression by Dr. Manzo shows no acute abnormality of the pelvis and right hip. No change compared to computed tomography scan of 04/18/2020 (Shira Reynoso) Disposition Decision to Admit Reason: Admit from EC Decision Date: 09/06/20 Decision Time: 23:21 <Shira Reynoso - Last Filed: 09/06/20 23:26> <Janine James - Last Filed: 09/07/20 15:07> Clinical Impression: Right upper lobe pneumonia, Pulmonary nodules, Acute kidney injury, Right hip pain Disposition: ADMITTED IP TO THIS HOSP Condition: Serious
--- NOTE | 2020-09-07 00:13 | XR ---
EXAMINATION TYPE: XR femur RT DATE OF EXAM: 09/07/2020 COMPARISON: NONE HISTORY: Right hip pain TECHNIQUE: 4 views FINDINGS: There is osteopenia. The hip joint is intact. There is vascular calcification. There are st aples at the lateral femoral condyle from previous surgery. There is no evidence of an acute fracture . IMPRESSION: Osteopenia. No fracture seen.
[2020-09-07] MEDS: SODIUM CHLORIDE 0.9% 1,000 ML IV SCH ×2 (00:19→18:20)
[2020-09-07 04:18] LABS: Albumin 2.7 g/dL (3.5-5.0); Magnesium 1.9 mg/dL (1.6-2.3); Potassium 4.8 mmol/L (3.5-5.1); Total Bilirubin 0.5 mg/dL (0.2-1.3); Total Protein 5.4 g/dL (6.3-8.2)
[2020-09-07 04:27] LABS: Anisocytosis Slight; Basophils % (A) 0 %; Eosinophils % (A) 0 %; HCT 28.1 % (39.0-53.0); HGB 8.6 gm/dL (13.0-17.5); Hypochromasia Marked; Lymphocytes % (A) 6 %; MCH 26.3 pg (25.0-35.0); MCHC 30.7 g/dL (31.0-37.0); MCV 85.6 fL (80.0-100.0); Mean Platelet Volume 8.8; Microcytosis Slight; Monocytes # (A) 0.4 k/uL (0-1.0); Monocytes % (A) 3 %; Neutrophils # (A) 13.3 k/uL (1.3-7.7); Neutrophils % (A) 90 %; Platelet Count 105 k/uL (150-450); RBC 3.29 m/uL (4.30-5.90); RDW 19.4 % (11.5-15.5); WBC 14.8 k/uL (3.8-10.6)
--- NOTE | 2020-09-07 05:31 | P.HPIM ---
History of Present Illness H&P Date: 09/07/20 Patient is an 80-year-old male with an extensive PMH including hypertension, hyperlipidemia, CAD, history of COPD who was transferred from [facility] due to multiple active problems including pneumonia, acute renal failure, and abnormal findings on chest CT. The patient was very hard of hearing and somewhat poor historian thereby history partially obtained from the chart. The patient had presented to [facility] earlier today with complaints of right hip pain. The patient had reported that he recently had moved into his son's apartment and that he suddenly developed right hip pain 2 days ago. The patient is unable to recall any inciting event. The patient had undergone extensive evaluation at [facility] where a CT chest, abdomen, pelvis had revealed 2 small nodular opacities in the right lung new from 04/18/20 with possibility of malignancy strongly considered along with moderate right pleural effusion, emphysematous bilateral changes, and parenchyma l infiltrate in the posterior segment of the right upper lobe. Laboratory evaluation was remarkable for WBC count of 11.6, hemoglobin 9.3, platelets 119, lactic acid 1.7, glucose 106, BUN 61, creatinine 3.5, calcium 7.6, sodium 134, potassium 5.1, chloride 104, CO2 19, anion gap 16, alk phos 79, AST 18, ALT 19, ESR 62, UA unremarkable. At time of evaluation, the patient noted ongoing 5 out of 10 right hip pain. He denied additional complaints. Denied chest pain, shortness of breath, nausea, vomiting, diaphoresis. Review of Systems Pertinent positives and negatives as discussed in HPI, a complete review of systems was performed and all other systems are negative. Past Medical History Past Medical History: Coronary Artery Disease (CAD), COPD, CVA/TIA, Hyperlipidemia, Hypertension, Myocardial Infarction ([place]), Renal Disease Additional Past Medical History / Comment(s): chronic back pain Last Myocardial Infarction Date:: 2012 History of Any Multi-Drug Resistant Organisms: None Reported Past Surgical History: Heart Catheterization, Heart Catheterization With Stent, Orthopedic Surgery Additional Past Surgical History / Comment(s): lt femur Past Anesthesia/Blood Transfusion Reactions: No Reported Reaction Date of Last Stent Placement:: 2012 Past Psychological History: No Psychological Hx Reported Smoking Status: Never smoker Past Alcohol Use History: None Reported Past Drug Use History: None Reported - Past Family History Father History Unknown: Yes Mother History Unknown: Yes Medications and Allergies Home Medications Medication Instructions Recorded Confirmed Type Albuterol Sulfate [Ventolin HFA] 2 puff INHALATION RT-QID PRN 04/18/20 06/18/20 History Atorvastatin Calcium [Lipitor] 20 mg PO HS 04/18/20 06/18/20 History amLODIPine [Norvasc] 10 mg PO DAILY 04/18/20 06/18/20 History Aspirin 81 mg PO DAILY #30 chew 04/20/20 06/18/20 Rx Sodium Bicarbonate Tab 650 mg PO QID #120 tab 04/20/20 06/18/20 Rx carvediloL [Coreg] 12.5 mg PO AC-BID #60 tab 04/20/20 06/18/20 Rx Gabapentin [Neurontin] 300 mg PO TID PRN 06/18/20 06/18/20 History Lisinopril [Zestril] 10 mg PO DAILY 06/18/20 06/18/20 History Ipratropium-Albuterol Nebulize 3 ml INHALATION RT-QID PRN ml 06/23/20 Rx [Duoneb 0.5 mg-3 mg/3 ml Soln] Levofloxacin [Levaquin] 250 mg PO DAILY 5 Days #5 tab 06/23/20 Rx Allergies Allergy/AdvReac Type Severity Reaction Status Date / Time Penicillins Allergy Unknown Verified 06/18/20 19:51 Sulfa (Sulfonamide Allergy Unknown Verified 06/18/20 19:51 Antibiotics) Physical Exam Vitals: Vital Signs Temp Pulse Pulse Resp BP BP Pulse Ox 09/07/20 02:00 98.4 F 90 18 156/98 97 09/07/20 00:22 90 20 142/90 98 09/06/20 22:53 20 09/06/20 21:47 98.4 F 88 18 129/86 95 Intake and Output 09/06/20 09/06/20 09/07/20 14:59 22:59 06:59 Other: Weight 53.07 kg 53.07 kg General: non toxic, no distress, appears at stated age, normal weight Derm: no unusual rashes/lesions no unusual ecchymoses, warm, dry Head: atraumatic, normocephalic, symmetric Eyes: EOMI, no lid lag, anicteric sclera, pupils equal round reactive to light ENT: Nose and ears atraumatic, no thrush, no pharyngeal erythema Neck: No thyromegaly, no cervical lymphadenopathy, trachea midline, supple Mouth: no lip lesion, mucus membranes moist Cardiovascular: S1S2 reg, no murmur, positive posterior tibial pulse bilateral, no edema, capillary refill less than 2 seconds Lungs: CTA bilateral, no rhonchi, no rales , no accessory muscle use Abdominal: soft, nontender to palpation, no guarding, no appreciable organomegaly, normal bowel sounds Ext: no gross muscle atrophy, limited examination of the right hip due to moderate to severe pain, strength to out of 5 right lower extremity, 3 out of 5 left lower extremity, and 5 out of 5 of bilateral upper extremities, no contractures Neuro: CN II-XI grossly intact, light touch intact all 4 extremities, finger to nose within normal limits Psych: Alert, oriented, appropriate affect Results CBC & Chem 7: 09/07/20 03:53 09/07/20 03:53 Thrombosis Risk Factor Assmnt - Choose All That Apply Any of the Below Risk Factors Present?: No Other Risk Factors: Yes Each Risk Factor Represents 3 Points: Age 75 years or older Thrombosis Risk Factor Assessment Total Risk Factor Score: 3 Thrombosis Risk Factor Assessment Level: Moderate Risk Assessment and Plan Plan: Right hip pain, unclear etiology -Hip x-ray unremarkable -Consult Ortho -Pain control NELI on chronic kidney disease -Gentle hydration -Monitor BMP Right upper lobe consolidation, low suspicion for pneumonia -Hold off on Abxs at this time -Possibility of underlying malignancy Highly suspicious lung nodules -Briefly discussed with the patient if he would wish to pursue further workup in light of his DO NOT RESUSCITATE status -The patient wishes to speak with his son for moving forward with any additional testing -Patient did say that at his age, that he does not wish to undergo most heroic measures Chronic normocytic anemia -Monitor CBC for now DVT prophylaxis -Lovenox The patient is admitted with an anticipated greater than 2 midnight stay for evaluation of NELI CODE STATUS: Full Code Discussed with: Patient Anticipated discharge date: 2-[address]: NELI, Hip pain A total of 40 minutes was spent on the care of this complex patient more than 50% of the time was spent in counseling and care coordination.
[2020-09-07] MEDS ORDERED: ENOXAPARIN 40 MG/0.4 ML SYRINGE SQ SCH (09:00)
[2020-09-07] MEDS ORDERED: amLODIPine 10 MG TAB PO SCH (09:30)
[2020-09-07] MEDS: carvediloL 6.25 MG TAB PO SCH ×2 (10:13→17:42)
[2020-09-07] MEDS: ASPIRIN 81 MG PO SCH (10:13)
--- NOTE | 2020-09-07 10:35 | P.CNOR ---
History of Present Illness - [facility] Consult date: 09/07/20 Consult reason: joint pain History of present illness: Patient is an 80-year-old male with multiple medical comorbidities and was transferred to [facility] from [facility] for further evaluation. He had initially been evaluated at [facility] due to right hip pain. During a rather extensive workup, computed tomography scan revealed pulmonary nodules on the right side. With the other lab abnormalities and medical issues, he was transferred to [facility] for further workup. Patient was evaluated today at bedside, Dr. Ríos was also available. P candida is resting comfortably. He notes most of the discomfort in his right hip region when he weightbears. There is discomfort also when resting. Apparently the patient had a fall about a week ago, but the pain is only been present for the last few days. He has a history of a hip fusion on the left side that was done back in the 1940s. He has a history of chronic low back pain. Currently patient denies any new onset cervical, thoracic or lumbar pain. He denies any pain of the bilateral upper extremities or new onset left lower extremity. he notes no discomfort of the right knee, lower leg, foot or ankle. Review of Systems Constitutional: Reports as per HPI Past Medical History Past Medical History: Coronary Artery Disease (CAD), COPD, CVA/TIA, Hyperlipidemia, Hypertension, Myocardial Infarction ([place]), Renal Disease Additional Past Medical History / Comment(s): chronic back pain Last Myocardial Infarction Date:: 2012 History of Any Multi-Drug Resistant Organisms: None Reported Past Surgical History: Heart Catheterization, Heart Catheterization With Stent, Orthopedic Surgery Additional Past Surgical History / Comment(s): lt femur Past Anesthesia/Blood Transfusion Reactions: No Reported Reaction Date of Last Stent Placement:: 2012 Past Psychological History: No Psychological Hx Reported Smoking Status: Never smoker Past Alcohol Use History: None Reported Past Drug Use History: None Reported - Past Family History Father History Unknown: Yes Mother History Unknown: Yes Medications and Allergies Home Medications Medication Instructions Recorded Confirmed Type Albuterol Sulfate [Ventolin HFA] 2 puff INHALATION RT-Q4H PRN 04/18/20 09/07/20 History Aspirin 81 mg PO DAILY #30 chew 04/20/20 09/07/20 Rx Sodium Bicarbonate Tab 650 mg PO QID #120 tab 04/20/20 09/07/20 Rx carvediloL [Coreg] 12.5 mg PO AC-BID #60 tab 04/20/20 09/07/20 Rx Gabapentin [Neurontin] 300 mg PO TID PRN 06/18/20 09/07/20 History Ipratropium-Albuterol Nebulize 3 ml INHALATION RT-QID PRN ml 06/23/20 09/07/20 Rx [Duoneb 0.5 mg-3 mg/3 ml Soln] Escitalopram [Lexapro] 10 mg PO DAILY 09/07/20 09/07/20 History hydrALAZINE HCL [Apresoline] 20 mg PO QID 09/07/20 09/07/20 History traZODone HCL 50 mg PO HS 09/07/20 09/07/20 History Allergies Allergy/AdvReac Type Severity Reaction Status Date / Time Penicillins Allergy Unknown Verified 09/07/20 09:37 Sulfa (Sulfonamide Allergy Unknown Verified 09/07/20 09:37 Antibiotics) prednisone AdvReac Confusion Verified 09/07/20 09:42 Physical Examination Right lower extremity: No obvious open lesions or sores are visualized throughout the extremity, there is no significant areas of erythema or soft tissue swelling Patient is tender with palpation of the proximal right femur and into the groin. Logroll maneuver reproduces discomfort. He has a difficult time with straight leg raise Patient is nontender surrounding the knee, there is no effusion present Patient is nontender with palpation of the lower leg, including foot and ankle Hip flexion was assessed due to discomfort, patient is able to actively extend and flex the knee without difficulty. Plantar flexion, dorsiflexion, EHL, FHL are intact. Calf is soft, no tenderness with palpation His sensory exam to light touch is intact throughout the extremity Dorsalis pedis pulses 2+ Results - Labs Labs: Abnormal Lab Results - Last 24 Hours (Table) 09/07/20 09/07/20 Range/Units 03:53 03:53 WBC 14.8 H (3.8-10.6) k/uL RBC 3.29 L (4.30-5.90) m/uL Hgb 8.6 L (13.0-17.5) gm/dL Hct 28.1 L (39.0-53.0) % MCHC 30.7 L (31.0-37.0) g/dL RDW 19.4 H (11.5-15.5) % Plt Count 105 L (150-450) k/uL Neutrophils # 13.3 H (1.3-7.7) k/uL Sodium 136 L (137-145) mmol/L Chloride 109 H (98-107) mmol/L Carbon Dioxide 17 L (22-30) mmol/L BUN 58 H (9-20) mg/dL Creatinine 3.36 H (0.66-1.25) mg/dL Glucose 121 H (74-99) mg/dL Calcium 7.0 L (8.4-10.2) mg/dL Total Protein 5.4 L (6.3-8.2) g/dL Albumin 2.7 L (3.5-5.0) g/dL H & H 09/07/20 Range/Units 03:53 Hgb 8.6 L (13.0-17.5) gm/dL Hct 28.1 L (39.0-53.0) % Result Diagrams: 09/07/20 03:53 09/07/20 03:53 - Diagnostic results Hip x-ray: report reviewed, image reviewed (X-rays demonstrate obvious osteo- arthritic changes with joint space loss and subchondral sclerosis. No obvious fracture is appreciated. Images demonstrate fusion of the left hip joint ) Assessment and Plan Assessment: Right hip pain Previous left hip fusion History of remote fall from standing Multiple medical comorbidities Plan: Dr. Ríos was available today to discuss treatment options with the patient. Due to the possibility of a lung cancer diagnosis, patient's symptoms and x-ray findings a MRI with and without contrast will be ordered of the pelvis to include the right hip and also the right femur. Depending on results of MRI, we'll discuss further treatment options with patient Pain control, adequate at this time GI and DVT prophylaxis per primary medical team Internal medicine recommendations Time with Patient: Less than 30
[2020-09-07 11:25] LABS: African American GFR (CKD) 18.7 (60.0-200.0); Anion Gap 8.8 mmol/L (4.00-12.00); BUN/Creat Ratio 17.94 Ratio (12.00-20.00); Calcium 7.3 mg/dL (8.7-10.3); Carbon Dioxide 20.2 mmol/L (21.6-31.8); Non-African American GFR(CKD) 16.1 (60.0-200.0); Potassium 4.9 mmol/L (3.5-5.5)
[2020-09-07 13:02] LABS: HCT 28.8 % (39.6-50.0); HGB 8.6 g/dL (13.0-17.0); MCH 26.5 pg (27.0-32.0); MCHC 29.9 g/dL (32.0-37.0); MCV 88.6 fL (80.0-97.0); Mean Platelet Volume 11.7 fL (9.5-12.2); Platelet Count 105 X 10*3/uL (140-440); RBC 3.25 X 10*6/uL (4.40-5.60); RDW 19.7 % (11.5-14.5)
--- NOTE | 2020-09-07 13:55 | P.CRDCN ---
History of Present Illness History of present illness: HISTORY OF PRESENTING ILLNESS This is a pleasant 80-year-old male past medical history significant for coronary artery disease status post multiple PCI, aortic disease status post prior stent graft placement, hypertension, dyslipidemia, chronic kidney disease, chronic nicotine dependence and COPD. He follows in the office with Dr Simpson. We have been asked to see in consultation for abnormal EKG. He presented to the hospital with symptoms of hip pain. He states his right hip has been hurting and causing him significant distress and inability to walk for the past few days. He did have a fall approximately 1 week ago but didn't initially have any pain. He has been seen by orthopedics and they have ordered an MRI. He also complains that he has no energy to do any simple activity and becomes short of breath very easily. He denies any chest pain, dizziness or palpitations. Most recent echocardiogram obtained March 2020 revealed preserved LV systolic function with ejection fraction 35-60%, mild MR and mild TR. DIAGNOSTICS EKG reveals sinus mechanism with peaked T-waves in the precordial leads. Laboratory reviewed, PBC 16.9, hemoglobin 8.6, platelets 105, sodium 138, potassium 4.9, creatinine 3.4, magnesium 1.9. Current cardiac medications include aspirin 81 mg daily, Coreg 12.5 mg twice a day and hydralazine 20 mg 4 times a day. Recent stress test in the office 05/2020 revealed a fixed defect inferiorly with no reversibility. REVIEW OF SYSTEMS At the time of my exam: CONSTITUTIONAL: Denies fever or chills. CARDIOVASCULAR: Denies chest pain, shortness of breath, orthopnea, PND or palpitations. RESPIRATORY: Denies cough. GASTROINTESTINAL: Denies abdominal pain, diarrhea, constipation, nausea or vomiting. MUSCULOSKELETAL: Complains of right hip pain. NEUROLOGIC: Denies numbness, tingling, headacbe or weakness. ENDOCRINE: Denies fatigue, weight change, polydipsia or polyurina. GENITOURINARY: Denies burning, hematuria or urgency with micturation. HEMATOLOGIC: Denies history of anemia or bleeding. PHYSICAL EXAMINATION Blood pressure 178/92 heart rate 85 afebrile and maintaining oxygen saturation on nasal cannula. CONSTITUTIONAL: No apparent distress. Frail. HEENT: Head is normocephalic. Pupils are equal, round. Sclerae anicteric. Mucous membranes of the mouth are moist. No JVD. No carotid bruit. CHEST EXAMINATION: Lungs are clear to auscultation. No chest wall tenderness is noted on palpation or with deep breathing. Diminished bilaterally. HEART EXAMINATION: Regular rate and rhythm. S1, S2 heard. No murmurs, gallops or rub. ABDOMEN: Soft, nontender. Positive bowel sounds. EXTREMITIES: 2+ peripheral pulses, no lower extremity edema and no calf tenderness. NEUROLOGIC EXAMINATION: Patient is awake, alert and oriented x3. ASSESSMENT Right hip pain Leukocytosis Peripheral vascular disease s/p aortic stent graft Coronary artery disease, exact details unavailable Lung nodules COPD Hypertension Dyslipidemia Chronic kidney disease Chronic nicotine dependence PLAN EKG evaluated. No evidence of ST elevation. Peaked T-waves noted on all previous EKG's as well. No acute changes or concerns. Contine coreg and hydralazine as previously ordered. No further cardiac work-up at this time. Thank you kindly for this consultation. Nurse Practitioner note has been reviewed, I agree with a documented findings and plan of care. Patient was seen and examined. Past Medical History Past Medical History: Coronary Artery Disease (CAD), COPD, CVA/TIA, Hyperlipidemia, Hypertension, Myocardial Infarction ([place]), Renal Disease Additional Past Medical History / Comment(s): chronic back pain Last Myocardial Infarction Date:: 2012 History of Any Multi-Drug Resistant Organisms: None Reported Past Surgical History: Heart Catheterization, Heart Catheterization With Stent, Orthopedic Surgery Additional Past Surgical History / Comment(s): lt femur Past Anesthesia/Blood Transfusion Reactions: No Reported Reaction Date of Last Stent Placement:: 2012 Past Psychological History: No Psychological Hx Reported Smoking Status: Never smoker Past Alcohol Use History: None Reported Past Drug Use History: None Reported - Past Family History Father History Unknown: Yes Mother History Unknown: Yes Medications and Allergies Home Medications Medication Instructions Recorded Confirmed Type Albuterol Sulfate [Ventolin HFA] 2 puff INHALATION RT-Q4H PRN 04/18/20 09/07/20 History Aspirin 81 mg PO DAILY #30 chew 04/20/20 09/07/20 Rx Sodium Bicarbonate Tab 650 mg PO QID #120 tab 04/20/20 09/07/20 Rx carvediloL [Coreg] 12.5 mg PO AC-BID #60 tab 04/20/20 09/07/20 Rx Gabapentin [Neurontin] 300 mg PO TID PRN 06/18/20 09/07/20 History Ipratropium-Albuterol Nebulize 3 ml INHALATION RT-QID PRN ml 06/23/20 09/07/20 Rx [Duoneb 0.5 mg-3 mg/3 ml Soln] Escitalopram [Lexapro] 10 mg PO DAILY 09/07/20 09/07/20 History hydrALAZINE HCL [Apresoline] 20 mg PO QID 09/07/20 09/07/20 History traZODone HCL 50 mg PO HS 09/07/20 09/07/20 History Allergies Allergy/AdvReac Type Severity Reaction Status Date / Time Penicillins Allergy Unknown Verified 09/07/20 09:37 Sulfa (Sulfonamide Allergy Unknown Verified 09/07/20 09:37 Antibiotics) prednisone AdvReac Confusion Verified 09/07/20 09:42 Physical Exam Vitals: Vital Signs Temp Pulse Pulse Resp BP BP Pulse Ox 09/07/20 07:31 98.5 F 85 18 178/92 97 09/07/20 02:00 98.4 F 90 18 156/98 97 09/07/20 00:22 90 20 142/90 98 09/06/20 22:53 20 09/06/20 21:47 98.4 F 88 18 129/86 95 Intake and Output 09/06/20 09/07/20 09/07/20 22:59 06:59 14:59 Other: Weight 53.07 kg 53.07 kg Results 09/07/20 08:06 09/07/20 08:06 Cardiac Enzymes 09/07/20 Range/Units 03:53 AST 26 (17-59) U/L CBC 09/07/20 Range/Units 03:53 WBC 14.8 H (3.8-10.6) k/uL RBC 3.29 L (4.30-5.90) m/uL Hgb 8.6 L (13.0-17.5) gm/dL Hct 28.1 L (39.0-53.0) % Plt Count 105 L (150-450) k/uL Comprehensive Metabolic Panel 09/07/20 Range/Units 03:53 Sodium 136 L (137-145) mmol/L Potassium 4.8 (3.5-5.1) mmol/L Chloride 109 H (98-107) mmol/L Carbon Dioxide 17 L (22-30) mmol/L BUN 58 H (9-20) mg/dL Creatinine 3.36 H (0.66-1.25) mg/dL Glucose 121 H (74-99) mg/dL Calcium 7.0 L (8.4-10.2) mg/dL AST 26 (17-59) U/L ALT 23 (4-49) U/L Alkaline Phosphatase 81 (38-126) U/L Total Protein 5.4 L (6.3-8.2) g/dL Albumin 2.7 L (3.5-5.0) g/dL Current Medications Generic Name Dose Route Start Last Admin Trade Name Freq PRN Reason Stop Dose Admin Enoxaparin Sodium 40 mg 09/07/20 09:00 09/07/20 09:00 Enoxaparin 40 Mg/0.4 Ml Syringe SQ 40 mg DAILY CARA Administration Hydromorphone HCl 0.5 mg 09/06/20 23:18 Hydromorphone 0.5 Mg/0.5 Ml Syringe IVP Q3HR PRN Moderate Pain Sodium Chloride 1,000 mls @ 50 mls/hr 09/06/20 23:30 09/07/20 00:19 Saline 0.9% IV 50 mls/hr .Q20H CARA Administration Naloxone HCl 0.2 mg 09/06/20 23:18 Naloxone 0.4 Mg/Ml 1 Ml Vial IV Q2M PRN Opioid Reversal Ondansetron HCl 4 mg 09/06/20 23:18 Ondansetron 4 Mg/2 Ml Vial IVP Q8HR PRN Nausea And Vomiting Intake and Output 09/06/20 09/07/20 09/07/20 22:59 06:59 14:59 Other: Weight 53.07 kg 53.07 kg 09/07/20 03:53 09/07/20 03:53
[2020-09-07] MEDS ORDERED: IPRATROPIUM-ALBUTEROL 3 ML NEB INHALATION PRN (14:24)
--- NOTE | 2020-09-07 14:47 | P.PN ---
Subjective Progress Note Date: 09/07/20 Patient was awake and alert this morning. He was complaining of some cough that is productive of yellowish sputum. He denies any hip pain at this time. Objective - Vital Signs Vital signs: Vital Signs Temp 98.5 F 09/07/20 07:31 Pulse 85 09/07/20 07:31 Resp 18 09/07/20 07:31 BP 178/92 09/07/20 07:31 Pulse Ox 97 09/07/20 07:31 Intake & Output 09/06/20 09/07/20 09/07/20 18:59 06:59 18:59 Intake Total 400 Output Total 400 Balance 0 Weight 53.07 kg Intake: IV 400 Sodium Chloride 0.9% 1, 400 000 ml @ 50 mls/hr IV . Q20H [facility] Rx#:[id number] Output: Urine 400 - Exam General: The patient is awake and alert, in no distress Eye: there is normal conjunctiva bilaterally. Neck: The neck is supple, there is no JVD. Cardiovascular: Normal S1-S2, no S3-S4, no murmurs. Respiratory: Lungs clear to anterior chest auscultation bilaterally Gastrointestinal: Abdomen is soft, nontender Musculoskeletal: There is no pedal edema. Neurological:. Speech is normal. Skin: Skin is warm and dry - Labs CBC & Chem 7: 09/07/20 08:06 09/07/20 08:06 Labs: Abnormal Lab Results - Last 24 Hours (Table) 09/07/20 09/07/20 09/07/20 Range/Units 03:53 03:53 08:06 WBC 14.8 H 16.90 H (3.8-10.6) k/uL RBC 3.29 L 3.25 L (4.30-5.90) m/uL Hgb 8.6 L 8.6 L (13.0-17.5) gm/dL Hct 28.1 L 28.8 L (39.0-53.0) % MCH 26.5 L (27.0-32.0) pg MCHC 30.7 L 29.9 L (31.0-37.0) g/dL RDW 19.4 H 19.7 H (11.5-15.5) % Plt Count 105 L 105 L (150-450) k/uL Plt Count Comment DECREASED A Neutrophils # 13.3 H (1.3-7.7) k/uL Sodium 136 L (137-145) mmol/L Chloride 109 H (98-107) mmol/L Carbon Dioxide 17 L (22-30) mmol/L BUN 58 H (9-20) mg/dL Creatinine 3.36 H (0.66-1.25) mg/dL Est GFR (CKD-EPI)AfAm (60.0-200.0) Est GFR (CKD-EPI)NonAf (60.0-200.0) Glucose 121 H (74-99) mg/dL Calcium 7.0 L (8.4-10.2) mg/dL Total Protein 5.4 L (6.3-8.2) g/dL Albumin 2.7 L (3.5-5.0) g/dL 09/07/20 Range/Units 08:06 WBC (3.8-10.6) k/uL RBC (4.30-5.90) m/uL Hgb (13.0-17.5) gm/dL Hct (39.0-53.0) % MCH (27.0-32.0) pg MCHC (31.0-37.0) g/dL RDW (11.5-15.5) % Plt Count (150-450) k/uL Plt Count Comment Neutrophils # (1.3-7.7) k/uL Sodium (137-145) mmol/L Chloride (98-107) mmol/L Carbon Dioxide 20.2 L (22-30) mmol/L BUN 61.0 H (9-20) mg/dL Creatinine 3.4 H (0.66-1.25) mg/dL Est GFR (CKD-EPI)AfAm 18.7 L (60.0-200.0) Est GFR (CKD-EPI)NonAf 16.1 L (60.0-200.0) Glucose 117 H (74-99) mg/dL Calcium 7.3 L (8.4-10.2) mg/dL Total Protein (6.3-8.2) g/dL Albumin (3.5-5.0) g/dL Assessment and Plan Assessment: This is a 80-year-old male with complex past medical history noted below who was transferred from [facility] for further evaluation of right hip pain. Patient was evaluated in the ER and admitted to the hospital for further management of his medical problems noted below. 1. Right hip pain. No acute findings on x-ray. Patient was seen and evaluated by orthopedic surgery. Scheduled for MRI today for further evaluation. Cont inue pain control as needed. 2. Right lung pneumonia: Noted on CT of the chest at the outside hospital. I would obtain pro-calcitonin. Start antibiotic with IV ceftriaxone and oral azithromycin. Obtain sputum culture. I spoke to his son today and clarify penicillin ALLERGY and it was only a skin rash. 3. Right lung nodules and moderate right pleural effusion, concerning for possible underlying malignancy. May benefit from diagnostic thoracentesis area and I will consult Dr. Chavez for further evaluation 4. Underlying emphysema with mild exacerbation: Continue duo nebs every 6 hours. 5. Essential hypertension: Blood pressure not well controlled. Home regimen his own. We will continue to monitor closely. 6. Acute kidney injury on chronic kidney disease: Continue gentle IV fluid hydration with normal saline at 50 met per hour. 7. Stage IIIB chronic kidney disease with baseline creatinine around 2.9 8. Thrombocytopenia, may be secondary to Acute illness. We will continue to monitor closely. 9. DVT prophylaxis with subcu heparin 10. CODE STATUS: Patient is DO NOT RESUSCITATE/DO NOT INTUBATE 11. Chronic medical problems hyperlipidemia, coronary artery disease,
--- NOTE | 2020-09-07 14:49 | P.PN ---
Progress Note - Text Progress Note Date: 09/07/20 Today, I had a prolonged discussion with the patient's son, and his [employer], Ghassan over the phone. We discussed his father current medical condition. He discussed his hip pain and plan of care and obtain a MRI of the head for further evaluation. We also had a prolonged discussion regarding goals of care and the patient and his father would not like to have any aggressive or heroic measures. He is pretty concerned about the 2 lung nodules and the possibility of his father having an underlying malignancy. He was also concern about the right pleural effusion and was wondering if anything can be done about it. I discussed with him the possibility of having a diagnostic thoracentesis to rule out a malignant effusion but that something that I would like to discuss with pulmonology first. He was agreeable to the plan. I answered all of his questions to satisfaction. Time spent> 16 minutes
[2020-09-07] MEDS: IPRATROPIUM-ALBUTEROL 3 ML NEB INHALATION SCH ×2 (15:07→19:12)
[2020-09-07] MEDS: AZITHROMYCIN 250 MG TAB PO SCH (15:43)
[2020-09-07] MEDS: guaiFENesin 600 MG TABLET.ER PO SCH ×2 (15:43→20:06)
--- NOTE | 2020-09-07 16:17 | XR ---
EXAMINATION TYPE: XR chest 2V DATE OF EXAM: 09/07/2020 COMPARISON: 06/22/2020 HISTORY: 80 year-old male shortness of breath TECHNIQUE: AP and lateral views FINDINGS: Heart borderline enlarged. Increasing interstitial and patchy airspace opacities bilaterally, right g reater than left. Small bilateral pleural effusion seen on the lateral view. IMPRESSION: Increasing interstitial and patchy airspace disease. Small effusions are noted on the lateral view. C orrelate for CHF with developing pulmonary edema versus multifocal pneumonia.
--- NOTE | 2020-09-07 17:11 | P.PN ---
Progress Note - Text Progress Note Date: 09/07/20 MRI with and without of the pelvis and right femur reviewed. I do not see any evidence of acute fracture in this area of the femoral neck femoral head. There is some slight uptake and increase in fluid within the right hip however did not feel that this is infected or any infected type process there is some edema surrounding the peritrochanteric and intertrochanteric region. I do not see any large intramedullary masses. Do not see any soft tissue masses within the right hip. Currently the report is pending and we will await the final report.
[2020-09-07] MEDS: hydrALAZINE HCL 10 MG TAB PO SCH ×2 (17:42→20:06)
[2020-09-07] MEDS ORDERED: bisacodyL 5 MG TABLET.DR PO PRN (17:56)
--- NOTE | 2020-09-07 18:31 | ECHOF ---
Referral Reason:sob MEASUREMENTS -------- HEIGHT: 162.6 cm WEIGHT: 53.1 kg BP: 178/92 IVSd: 1.6 cm (0.6 - 1.1) LVIDd: 4.0 cm (3.9 - 5.3) LVPWd: 1.6 cm (0.6 - 1.1) IVSs: 2.0 cm LVIDs: 3.0 cm LVPWs: 2.0 cm LA Diam: 3.0 cm (2.7 - 3.8) RVIDd: 3.4 cm (< 3.3) Ao Diam: 3.8 cm (2.0 - 3.7) AV Cusp: 1.8 cm (1.5 - 2.6) EPSS: 0.6 cm RAP: 5.00 mmHg RVSP: 42.48 mmHg MV EF SLOPE: 87.36 mm/s (70 - 150) MV EXCURSION: 14.92 mm (> 18.000) FINDINGS -------- This was a technically adequate study. The left ventricular size is normal. There is moderate concentric left ventricular hypertrophy. O verall left ventricular systolic function is mildly impaired with, an EF between 45 - 50 %. The right ventricle is mildly enlarged. The left atrium is normal in size. The right atrium is normal in size. Interatrial and interventricular septum intact. There is mild aortic valve sclerosis. The mitral valve leaflets are mildly thickened. Mild tricuspid regurgitation present. There is mild pulmonary hypertension. The right ventricular systolic pressure, as measured by Doppler, is 42.48mmHg. There is no pulmonic regurgitation present. The aortic root is dilated measuring 3.8cm. Normal inferior vena cava with normal inspiratory collapse consistent with estimated right atrial pre ssure of 5 mmHg. There is no pericardial effusion. CONCLUSIONS -------- 1. The left ventricular size is normal. 2. There is moderate concentric left ventricular hypertrophy. 3. Overall left ventricular systolic function is mildly impaired with, an EF between 45 - 50 %. 4. The right ventricle is mildly enlarged. 5. There is mild aortic valve sclerosis. 6. The mitral valve leaflets are mildly thickened. 7. Mild tricuspid regurgitation present. 8. There is mild pulmonary hypertension. 9. The right ventricular systolic pressure, as measured by Doppler, is 42.48mmHg. 10. The aortic root is dilated measuring 3.8cm. 11. There is no pericardial effusion. [id number] [employer] CREWMAN: Terra Griggs RDCS
--- NOTE | 2020-09-07 20:19 | MR ---
EXAMINATION TYPE: MR pelvis wo con DATE OF EXAM: 09/07/2020 COMPARISON: None HISTORY: right hip pain, lung nodules possible carcinoma Multiplanar multiecho imaging of the pelvis and right hip was performed without contrast. There is ankylotic deformity with fusion of the proximal intertrochanteric left femur with the left i liac bone. The pelvic ring appears intact. Sacroiliac joints are intact. The proximal right femur carmenza ws fairly normal signal pattern. There is no evidence of avascular necrosis. There is slight increase d fluid around the intertrochanteric right femur. There is some subcutaneous edema around the pelvis and proximal thighs. There is mild free fluid in the pelvis. I see no evidence of a pelvic mass. Blad navi distends smoothly. There is lumbar dextroscoliotic deformity. IMPRESSION: There is increased fluid around the proximal right femur that could relate to some synovitis. No frac ture seen. No evidence of avascular necrosis. Ankylotic change and deformity of the left hip. There is mild free fluid in the pelvis that could relate to some degree of abdominal ascites. Subcutaneous edema around the pelvis.
--- NOTE | 2020-09-07 20:28 | MR ---
EXAMINATION TYPE: MR femur/thigh RT wo con DATE OF EXAM: 09/07/2020 COMPARISON: None HISTORY: right hip pain, lung nodules possible carcinoma Multisequence and or multiecho imaging of the right femur was performed without contrast. There is metal artifact from surgery at the distal right femur. I see no bony destructive process. Pr oximal femur is intact. There is no evidence of a fracture. There is some increased fluid signal arou nd the right femoral neck and intertrochanteric right femur that could relate to some hip joint synov itis. There is no evidence of a soft tissue mass. There is increased fluid over the anterior distal femur consistent with knee joint effusion. IMPRESSION: No fracture seen. No focal bone destruction seen to suggest metastatic disease. Mild increased fluid signal around the proximal femur could relate to some nonspecific hip joint asci malorie or synovitis. Knee joint effusion.
[2020-09-08] MEDS: HYDROmorphone 0.5 MG/0.5 ML SYRINGE IVP PRN ×2 (01:31→23:39)
[2020-09-08] MEDS: carvediloL 6.25 MG TAB PO SCH ×2 (08:22→16:40)
[2020-09-08] MEDS: ASPIRIN 81 MG PO SCH (08:22)
[2020-09-08] MEDS: guaiFENesin 600 MG TABLET.ER PO SCH ×2 (08:22→20:02)
[2020-09-08] MEDS: hydrALAZINE HCL 10 MG TAB PO SCH ×4 (08:23→20:02)
[2020-09-08] MEDS: HEPARIN SODIUM,PORCINE 5,000 UNIT/ML 1 ML VIAL SQ SCH ×2 (08:23→20:02)
[2020-09-08] MEDS: AZITHROMYCIN 250 MG TAB PO SCH (08:23)
[2020-09-08] MEDS: IPRATROPIUM-ALBUTEROL 3 ML NEB INHALATION SCH ×4 (08:37→20:49)
--- NOTE | 2020-09-08 09:19 | US ---
EXAMINATION TYPE: US chest DATE OF EXAM: 09/08/2020 COMPARISON: None CLINICAL HISTORY: right pleural effusion. TECHNIQUE: Targeted ultrasound of the posterior lower bilateral hemithoraces EXAM MEASUREMENTS: Right Pleural Effusion pocket size: 8.1 cm Right skin surface to fluid distance: 1.2 cm Right side marked for possible thoracentesis outside the dept. Left side NOT marked for possible thoracentesis outside the dept. Small left pleural effusion may be present. Pulmonologists are able to review the images in the patient?s EMR. IMPRESSIONS: Pleural effusions, right side marked for possible thoracentesis.
[2020-09-08] MEDS ORDERED: BENZONATATE 100 MG CAP PO PRN (11:23)
--- NOTE | 2020-09-08 11:28 | P.PN ---
Subjective Progress Note Date: 09/08/20 Patient is awake and alert. He told me that he had a lot of cough all night and was bringing some blood tinged sputum. He denies any fevers or chills. No significant shortness of breath. Objective - Vital Signs Vital signs: Vital Signs Temp 97.5 F L 09/08/20 06:29 Pulse 84 09/08/20 08:49 Resp 20 09/08/20 06:29 BP 177/93 09/08/20 06:29 Pulse Ox 95 09/08/20 06:29 Intake & Output 09/07/20 09/08/20 09/08/20 18:59 06:59 18:59 Intake Total 400 Output Total 800 250 Balance -400 -250 Intake: IV 400 Sodium Chloride 0.9% 1, 400 000 ml @ 50 mls/hr IV . Q20H [facility] Rx#:[id number] Output: Urine 800 250 Other: Voiding Method External Catheter # Bowel Movements 1 - Exam General: The patient is awake and alert, in no distress Eye: there is normal conjunctiva bilaterally. Neck: The neck is supple, there is no JVD. Cardiovascular: Normal S1-S2, no S3-S4, no murmurs. Respiratory: Lungs clear to anterior chest auscultation bilaterally Gastrointestinal: Abdomen is soft, nontender Musculoskeletal: There is no pedal edema. Neurological:. Speech is normal. Skin: Skin is warm and dry - Labs CBC & Chem 7: 09/07/20 08:06 09/07/20 08:06 Labs: Abnormal Lab Results - Last 24 Hours (Table) 09/07/20 09/07/20 09/07/20 Range/Units 03:53 08:06 08:06 WBC 16.90 H (4.50-10.00) X 10*3/uL RBC 3.25 L (4.40-5.60) X 10*6/uL Hgb 8.6 L (13.0-17.0) g/dL Hct 28.8 L (39.6-50.0) % MCH 26.5 L (27.0-32.0) pg MCHC 29.9 L (32.0-37.0) g/dL RDW 19.7 H (11.5-14.5) % Plt Count 105 L (140-440) X 10*3/uL Plt Count Comment DECREASED A Carbon Dioxide 20.2 L (21.6-31.8) mmol/L BUN 61.0 H (9.0-27.0) mg/dL Creatinine 3.4 H (0.6-1.5) mg/dL Est GFR (CKD-EPI)AfAm 18.7 L (60.0-200.0) Est GFR (CKD-EPI)NonAf 16.1 L (60.0-200.0) Glucose 117 H (70-110) mg/dL Calcium 7.3 L (8.7-10.3) mg/dL Procalcitonin 6.87 H (0.02-0.09) ng/mL Assessment and Plan Assessment: This is a 80-year-old male with complex past medical history noted below who was transferred from [facility] for further evaluation of right hip pain. Patient was evaluated in the ER and admitted to the hospital for further management of his medical problems noted below. 1. Right hip pain. No acute findings on x-ray. Patient was seen and evaluated by orthopedic surgery. MRI of the hip showed no evidence of fracture or bone destruction to suggest metastatic disease. Continue pain control as needed. 2. Right lung pneumonia: Noted on CT of the chest at the outside hospital. pro-calcitonin significantly elevated. Started antibiotic with IV ceftriaxone and oral azithromycin day #2. Sputum culture ordered. 3. Right lung nodules and moderate right pleural effusion, concerning for possible underlying malignancy. I consulted with Dr. Chavez for diagnostic thoracentesis 4. Underlying emphysema with mild exacerbation: Continue duo nebs every 6 hours. 5. Essential hypertension: Blood pressure not well controlled with home regimen. I would start Norvasc 5 mg daily and continue to monitor closely 6. Acute kidney injury on chronic kidney disease: Continue gentle IV fluid hydration with normal saline at 50 met per hour. Awaiting repeat lab work from today 7. Stage IIIB chronic kidney disease with baseline creatinine around 2.9 8. Thrombocytopenia, may be secondary to Acute illness. We will continue to monitor closely. 9. DVT prophylaxis with subcu heparin 10. CODE STATUS: Patient is DO NOT RESUSCITATE/DO NOT INTUBATE 11. Chronic medical problems hyperlipidemia, coronary artery disease Today, I updated the patient about his current condition. He is very well aware of his chronic medical problems and does not want anything aggressive. He would like to have a diagnostic thoracentesis to evaluate for possible malignant effusion. He otherwise does not want anything aggressive. He is concerned about going back home as he is very weak physically and is unable to get to his bedroom upstairs. He lives with his son who is his primary caregiver. He is also contemplating hospice care
[2020-09-08 11:52] LABS: INR 0.9 (<1.2)
[2020-09-08 11:53] LABS: Prothrombin Time 10.2 sec (9.0-12.0)
[2020-09-08 12:13] LABS: African American GFR (CKD) 19.4 (60.0-200.0); Anion Gap 11.1 mmol/L (4.00-12.00); Calcium 7.5 mg/dL (8.7-10.3); Carbon Dioxide 17.9 mmol/L (21.6-31.8); Non-African American GFR(CKD) 16.7 (60.0-200.0)
[2020-09-08] MEDS: amLODIPine 5 MG TAB PO SCH (12:15)
[2020-09-08 13:25] LABS: Basophils # (A) 0.03 X 10*3/uL (0.00-0.10); Basophils % (A) 0.3 %; Eosinophils # (A) 0.03 X 10*3/uL (0.04-0.35); Eosinophils % (A) 0.3 %; HCT 28.4 % (39.6-50.0); HGB 8.3 g/dL (13.0-17.0); Lymphocytes # (A) 1.01 X 10*3/uL (0.90-5.00); Lymphocytes % (A) 9.6 %; MCHC 29.2 g/dL (32.0-37.0); Mean Platelet Volume 11.4 fL (9.5-12.2); Monocytes # (A) 0.29 X 10*3/uL (0.20-1.00); Monocytes % (A) 2.8 %; Neutrophils # (A) 9.07 X 10*3/uL (1.80-7.70); Neutrophils % (A) 86.5 %; Platelet Count 79 X 10*3/uL (140-440); RBC 3.19 X 10*6/uL (4.40-5.60); RDW 19.6 % (11.5-14.5); WBC 10.48 X 10*3/uL (4.50-10.00)
[2020-09-08 13:26] LABS: Acanthocytes 2+; Anisocytosis (M) 2+
--- NOTE | 2020-09-08 13:32 | P.PN ---
Subjective Progress Note Date: 09/08/20 Principal diagnosis: Right hip pain, right lung nodules, right lung pneumonia, other medical comorbidities Patient was examined today at bedside, he is resting comfortably. He notes significant improvement in the right hip, is essentially having no pain at this time. Patient is having a thoracentesis done on the right side today due to the pleural effusion and is present. He is being followed by multiple medical specialists at this time. Objective - Vital Signs Vital signs: Vital Signs Temp 97.5 F L 09/08/20 06:29 Pulse 78 09/08/20 12:14 Resp 18 09/08/20 12:14 BP 181/104 09/08/20 12:14 Pulse Ox 94 L 09/08/20 12:14 Intake & Output 09/07/20 09/08/20 09/08/20 18:59 06:59 18:59 Intake Total 400 Output Total 800 250 Balance -400 -250 Intake: IV 400 Sodium Chloride 0.9% 1, 400 000 ml @ 50 mls/hr IV . Q20H [facility] Rx#:[id number] Output: Urine 800 250 Other: Voiding Method External Catheter External Catheter # Bowel Movements 1 - Exam Right lower extremity: No obvious open lesions or sores are visualized throughout the extremity, there is no significant areas of erythema or soft tissue swelling Nontender with palpation of the proximal femur. Logroll maneuver reproduces no pain. Passive and active flexion of the hip reproduces no pain. Patient is nontender surrounding the knee, there is no effusion present Patient is nontender with palpation of the lower leg, including foot and ankle Calf is soft, no tenderness with palpation His sensory exam to light touch is intact throughout the extremity Dorsalis pedis pulses 2+ - Labs CBC & Chem 7: 09/08/20 06:21 09/08/20 06:21 Labs: Abnormal Lab Results - Last 24 Hours (Table) 09/07/20 09/08/20 09/08/20 Range/Units 03:53 06:21 06:21 WBC 10.48 H (4.50-10.00) X 10*3/uL RBC 3.19 L (4.40-5.60) X 10*6/uL Hgb 8.3 L (13.0-17.0) g/dL Hct 28.4 L (39.6-50.0) % MCH 26.0 L (27.0-32.0) pg MCHC 29.2 L (32.0-37.0) g/dL RDW 19.6 H (11.5-14.5) % Plt Count 79 L (140-440) X 10*3/uL Immature Gran # 0.05 H (0.00-0.04) X 10*3/uL Neutrophils # 9.07 H (1.80-7.70) X 10*3/uL Eosinophils # 0.03 L (0.04-0.35) X 10*3/uL Chloride 110 H (96-109) mmol/L Carbon Dioxide 17.9 L (21.6-31.8) mmol/L BUN 66.0 H (9.0-27.0) mg/dL Creatinine 3.3 H (0.6-1.5) mg/dL Est GFR (CKD-EPI)AfAm 19.4 L (60.0-200.0) Est GFR (CKD-EPI)NonAf 16.7 L (60.0-200.0) Calcium 7.5 L (8.7-10.3) mg/dL Procalcitonin 6.87 H (0.02-0.09) ng/mL Assessment and Plan Assessment: Right hip pain Previous left hip fusion History of remote fall from standing Multiple medical comorbidities Plan: MRI images and reports demonstrate no obvious fractures involving the right femur or pelvis. There are no obvious masses present. There was an increase in uptake and also some fluid surrounding the right hip joint, also the peritrochanteric and intertrochanteric region. Not evidence for any acute infection patient's symptoms currently also represent findings. Weight-bear as tolerated with walker, PT/OT evaluation GI and DVT prophylaxis per primary medical team Other medical specialty recommendations No orthopedic surgical intervention recommended at this time. We will be avail able for any further questions regarding this patient. Time with Patient: Less than 30
--- NOTE | 2020-09-08 15:44 | P.CNPUL ---
History of Present Illness Consult date: 09/08/20 Requesting physician: Fina Cardona Reason for consult: dyspnea, pneumonia, pleural effusion, abnormal CXR/CT, other Chief complaint: Dyspnea, right hip pain History of present illness: 80-year-old white male patient with past medical history of COPD, current smoker, previous history of CVA/TIA, hyperlipidemia, hypertension, history of myocardial infarction, chronic kidney disease, unspecified, coronary artery disease with stenting, who was transferred from [facility] for pneum onia, acute kidney injury, pleural effusion, and lung nodules. Patient presented to the [facility] for shortness of breath, and right hip pain. Patient was having difficulty walking on his right leg. He reports history of a fall about a week ago however his hip did not start hurting until 2 days ago. He underwent evaluation at the [facility] and CT of the chest abdomen and pelvis. CT chest showed 2 small nodular opacities in the right lung . Previously seen on the CT chest from March 2020, moderate- sized right-sided pleural effusion and right basilar atelectasis. Patient tested negative on his rapid COVID 19 past. X-ray of the pelvis and the right hip were obtained, showing no acute abnormality of the pelvis and right hip. Chest x-ray was obtained at the [facility] showing increasing interstitial and patchy airspace disease, small pleural effusions seen on the lateral view. Pro-calcitonin level came back elevated at 6.87, suggesting possibility of bacterial infection, and proBNP came back at 34,700 increased possibility of acute exacerbation of CHF. Echocardiogram showed EF of 45-50%, moderate LVH, mild TR, mild pulmonary hypertension with PA systolic of 42 mmHg. Patient's current hematocrit of oxygen pulse ox of 95%, has been afebrile, hemodynamically stable, he is short of breath with exertion, he is coughing and bringing up some blood-tinged sputum. His had no fever or chills, COVID 19 PCR was negative. He was started on antibiotics of azithromycin and Rocephin, and we were consulted for possibility of right thoracentesis for diagnostic purposes to rule out malignant process. Chest ultrasound revealed 8.1 cm plural effusion pocket on the right, however after reviewing the ultrasound films. Lung tissue in the plural effusion, and consulted interventional radiology for ultrasound-guided right thoracentesis Review of Systems All systems: negative Constitutional: Reports fatigue, Reports weakness, Denies chills, Denies fever Eyes: denies blurred vision, denies pain Ears, nose, mouth and throat: Denies headache, Denies sore throat Cardiovascular: Denies chest pain, Denies shortness of breath Respiratory: Reports dyspnea, Denies cough Gastrointestinal: Denies abdominal pain, Denies diarrhea, Denies nausea, Denies vomiting Musculoskeletal: Denies myalgias Musculoskeletal: right: hip pain Integumentary: Denies pruritus, Denies rash Neurological: Denies numbness, Denies weakness Psychiatric: Denies anxiety, Denies depression Endocrine: Denies fatigue, Denies weight change Past Medical History Past Medical History: Coronary Artery Disease (CAD), COPD, CVA/TIA, Hyperlipidemia, Hypertension, Myocardial Infarction ([place]), Renal Disease Additional Past Medical History / Comment(s): chronic back pain Last Myocardial Infarction Date:: 2012 History of Any Multi-Drug Resistant Organisms: None Reported Past Surgical History: Heart Catheterization, Heart Catheterization With Stent, Orthopedic Surgery Additional Past Surgical History / Comment(s): lt femur Past Anesthesia/Blood Transfusion Reactions: No Reported Reaction Date of Last Stent Placement:: 2012 Past Psychological History: No Psychological Hx Reported Smoking Status: Never smoker Past Alcohol Use History: None Reported Past Drug Use History: None Reported - Past Family History Father History Unknown: Yes Mother History Unknown: Yes Medications and Allergies Home Medications Medication Instructions Recorded Confirmed Type Albuterol Sulfate [Ventolin HFA] 2 puff INHALATION RT-Q4H PRN 04/18/20 09/07/20 History Aspirin 81 mg PO DAILY #30 chew 04/20/20 09/07/20 Rx Sodium Bicarbonate Tab 650 mg PO QID #120 tab 04/20/20 09/07/20 Rx carvediloL [Coreg] 12.5 mg PO AC-BID #60 tab 04/20/20 09/07/20 Rx Gabapentin [Neurontin] 300 mg PO TID PRN 06/18/20 09/07/20 History Ipratropium-Albuterol Nebulize 3 ml INHALATION RT-QID PRN ml 06/23/20 09/07/20 Rx [Duoneb 0.5 mg-3 mg/3 ml Soln] Escitalopram [Lexapro] 10 mg PO DAILY 09/07/20 09/07/20 History hydrALAZINE HCL [Apresoline] 20 mg PO QID 09/07/20 09/07/20 History traZODone HCL 50 mg PO HS 09/07/20 09/07/20 History Allergies Allergy/AdvReac Type Severity Reaction Status Date / Time Penicillins Allergy Unknown Verified 09/07/20 09:37 Sulfa (Sulfonamide Allergy Unknown Verified 09/07/20 09:37 Antibiotics) prednisone AdvReac Confusion Verified 09/07/20 09:42 Physical Exam Vitals: Vital Signs Temp Pulse Pulse Resp BP BP Pulse Ox 09/08/20 13:28 97.2 F L 85 20 158/85 95 09/08/20 12:14 78 18 181/104 94 L 09/08/20 11:47 88 09/08/20 11:25 88 09/08/20 08:49 84 09/08/20 08:37 88 09/08/20 06:29 97.5 F L 83 20 177/93 95 09/08/20 01:24 97.5 F L 82 20 179/100 97 09/07/20 20:00 98.6 F 76 20 160/97 96 09/07/20 19:22 73 09/07/20 19:14 72 Intake and Output 09/08/20 09/08/20 09/08/20 06:59 14:59 22:59 Output Total 250 Balance -250 Output: Urine 250 Other: Voiding Method External Catheter # Bowel Movements 1 GENERAL EXAM: Alert, very pleasant, appears generally debilitated, but no acute distress, currently on 2 L of oxygen, with a pulse ox of 95% comfortable in no apparent distress. HEAD: Normocephalic/atraumatic. EYES: Normal reaction of pupils, equal size. Conjunctiva pink, sclera white. NOSE: Clear with pink turbinates. THROAT: No erythema or exudates. NECK: No masses, no JVD, no thyroid enlargement, no adenopathy. CHEST: No chest wall deformity. Symmetrical expansion. LUNGS: Equal air entry with diminished breath sounds at the bases, and limited crackles, CVS: Regular rate and rhythm, normal S1 and S2, no gallops, no murmurs, no rubs ABDOMEN: Soft, nontender. No hepatosplenomegaly, normal bowel sounds, no guarding or rigidity. EXTREMITIES: No clubbing, no edema, no cyanosis, 2+ pulses and upper and lower extremities. MUSCULOSKELETAL: Muscle strength and tone normal. SPINE: No scoliosis or deformity SKIN: No rashes CENTRAL NERVOUS SYSTEM: Alert and oriented -3. No focal deficits, tone is normal in all 4 extremities. PSYCHIATRIC: Alert and oriented -3. Appropriate affect. Intact judgment and insight. Results - Laboratory Findings CBC and BMP: 09/08/20 06:21 09/08/20 06:21 PT/INR, D-dimer PT 10.2 sec (9.0-12.0) 09/08/20 11:13 INR 0.9 (<1.2) 09/08/20 11:13 Abnormal lab findings: Abnormal Labs 09/07/20 09/07/20 09/07/20 03:53 03:53 03:53 WBC 14.8 H RBC 3.29 L Hgb 8.6 L Hct 28.1 L MCH MCHC 30.7 L RDW 19.4 H Plt Count 105 L Plt Count Comment Immature Gran # Neutrophils # 13.3 H Eosinophils # Sodium 136 L Chloride 109 H Carbon Dioxide 17 L BUN 58 H Creatinine 3.36 H Est GFR (CKD-EPI)AfAm Est GFR (CKD-EPI)NonAf Glucose 121 H Calcium 7.0 L Total Protein 5.4 L Albumin 2.7 L Procalcitonin 6.87 H 09/07/20 09/07/20 09/08/20 08:06 08:06 06:21 WBC 16.90 H RBC 3.25 L Hgb 8.6 L Hct 28.8 L MCH 26.5 L MCHC 29.9 L RDW 19.7 H Plt Count 105 L Plt Count Comment DECREASED A Immature Gran # Neutrophils # Eosinophils # Sodium Chloride 110 H Carbon Dioxide 20.2 L 17.9 L BUN 61.0 H 66.0 H Creatinine 3.4 H 3.3 H Est GFR (CKD-EPI)AfAm 18.7 L 19.4 L Est GFR (CKD-EPI)NonAf 16.1 L 16.7 L Glucose 117 H Calcium 7.3 L 7.5 L Total Protein Albumin Procalcitonin 09/08/20 06:21 WBC 10.48 H RBC 3.19 L Hgb 8.3 L Hct 28.4 L MCH 26.0 L MCHC 29.2 L RDW 19.6 H Plt Count 79 L Plt Count Comment DECREASED A Immature Gran # 0.05 H Neutrophils # 9.07 H Eosinophils # 0.03 L Sodium Chloride Carbon Dioxide BUN Creatinine Est GFR (CKD-EPI)AfAm Est GFR (CKD-EPI)NonAf Glucose Calcium Total Protein Albumin Procalcitonin - Diagnostic Findings Chest x-ray: report reviewed, image reviewed CT scan - chest: report reviewed, image reviewed Additional studies: Right Femur X-ray, x-ray of the hip and pelvis, EKG, pelvis MRI, femur MRI, chest ultrasound, echocardiogram reviewed Assessment and Plan Plan: Assessment: #1. Small right plural effusion and atelectasis, possibility of bacterial pneumonia is likely, rule out possibility of malignant pleural effusion. Interventional radiology consulted for ultrasound-guided diagnostic right thoracentesis #2. Right hip pain, inability to bear weight and walk, x-rays of the pelvis and right hip showed no acute abnormality. MRI of the pelvis showed no fracture, no evidence of avascular necrosis, there is a possibility of increased fluid around the proximal right femur that could relate to synovitis. Right femur MRI showed no evidence of a fracture, no evidence of soft tissue mass, no focal bone destruction to suggest metastatic disease #3. 2 small nodular opacities in the right lung seen on CT chest, rule out poss ibility of malignancy #4. History of COPD #5. History of coronary artery disease with previous stenting #6. History of CVA/TIA #7. Hypertension #8. Hyperlipidemia #9. Previous history of myocardial infarction #10. Chronic kidney disease #11. Chronic back pain #12. Patient is a former smoker, carries extensive history of smoking intervention for the last 2 months Plan: We'll consult interventional radiology for ultrasound-guided thoracentesis of the right pleural effusion, and the fluid will be sent for various tests including cytology, Gram stain and cultures and pleural fluid analysis. Would continue antibiotics, nebulized bronchodilators, gentle IV hydration, GI and DVT prophylaxis. We'll continue to follow and make further recommendations I performed a history & physical examination of the patient and discussed their management with my nurse practitioner, Nasima Champion. I reviewed the nurse practitioner's note and agree with the documented findings and plan of care. Lung sounds are positive for diminished breath sounds. The findings and the impression was discussed with the patient. I attest to the documentation by the nurse practitioner. Time with Patient: Greater than 30
[2020-09-08] MEDS: SODIUM CHLORIDE 0.9% 1,000 ML IV SCH (16:02)
[2020-09-08] MEDS: NICOTINE 21MG/24HR PATCH TRANSDERM SCH (16:39)
[2020-09-09] MEDS: HYDROmorphone 0.5 MG/0.5 ML SYRINGE IVP PRN ×3 (04:18→21:23)
[2020-09-09] MEDS: guaiFENesin 600 MG TABLET.ER PO SCH ×2 (07:09→21:27)
[2020-09-09] MEDS: IPRATROPIUM-ALBUTEROL 3 ML NEB INHALATION SCH ×4 (07:09→19:45)
[2020-09-09] MEDS: amLODIPine 5 MG TAB PO SCH (07:10)
[2020-09-09] MEDS: carvediloL 6.25 MG TAB PO SCH ×2 (07:10→16:57)
[2020-09-09] MEDS: hydrALAZINE HCL 10 MG TAB PO SCH ×2 (07:10→12:35)
[2020-09-09] MEDS: ASPIRIN 81 MG PO SCH (07:10)
[2020-09-09] MEDS: AZITHROMYCIN 250 MG TAB PO SCH (07:11)
[2020-09-09] MEDS: NICOTINE 21MG/24HR PATCH TRANSDERM SCH (07:11)
[2020-09-09] MEDS: HEPARIN SODIUM,PORCINE 5,000 UNIT/ML 1 ML VIAL SQ SCH ×2 (07:11→21:27)
[2020-09-09] MEDS ORDERED: GABAPENTIN 300 MG CAP PO PRN (07:12)
[2020-09-09] MEDS ORDERED: LORazepam 2 MG/ML INJ IV STA (07:17)
--- NOTE | 2020-09-09 08:25 | XR ---
EXAMINATION TYPE: XR chest 1V portable DATE OF EXAM: 09/09/2020 HISTORY: Shortness of breath. COMPARISON: September 07, 2020 TECHNIQUE: Single view of the chest is submitted. FINDINGS: Demonstrated are scattered senescent parenchymal change. Persistent areas of coarse infiltrate throughout the perihilar and basilar regions without significan t change. The heart is stable. Hilar and mediastinal structures are within normal limits. Degenerative changes are seen of the dorsal spine. IMPRESSION: 1. Persistent areas of coarse infiltrate throughout the perihilar and basilar regions without signif icant change.
--- NOTE | 2020-09-09 09:06 | US ---
Ultrasound-guided therapeutic and diagnostic thoracentesis DATE OF EXAM: 09/08/2020 CLINICAL HISTORY: Pleural effusion The procedure was discussed with the patient. The risks, complications, benefits, and alternatives we re discussed and any questions were answered. Informed consent was obtained. The patient's blood pres sure was markedly elevated and not safe for the procedure. Additionally, the patient could not positi on for the procedure and therefore it was discontinued. IMPRESSION: 1. Discontinued thoracentesis
--- NOTE | 2020-09-09 09:43 | P.PN ---
Progress Note - Text Progress Note Date: 09/09/20 Patient seen and examined this morning. He states his right hip is feeling much better. Imaging fails to demonstrate any fracture. There is no lesions. At this point the patient can be weightbearing as tolerated of his right lower extremity with assist. PT OT is on consult. Increase ambulation. No surgical intervention warranted. Patient is stable per orthopedics
[2020-09-09 10:09] LABS: Basophils # (A) 0.03 X 10*3/uL (0.00-0.10); Basophils % (A) 0.3 %; Eosinophils # (A) 0.14 X 10*3/uL (0.04-0.35); Eosinophils % (A) 1.3 %; HCT 29.4 % (39.6-50.0); HGB 8.8 g/dL (13.0-17.0); Lymphocytes # (A) 0.99 X 10*3/uL (0.90-5.00); Lymphocytes % (A) 9.1 %; MCH 26.3 pg (27.0-32.0); MCHC 29.9 g/dL (32.0-37.0); MCV 87.8 fL (80.0-97.0); Monocytes # (A) 0.31 X 10*3/uL (0.20-1.00); Monocytes % (A) 2.9 %; Neutrophils # (A) 9.36 X 10*3/uL (1.80-7.70); Platelet Count 133 X 10*3/uL (140-440); RBC 3.35 X 10*6/uL (4.40-5.60); RDW 19.5 % (11.5-14.5); WBC 10.87 X 10*3/uL (4.50-10.00)
[2020-09-09 10:26] LABS: African American GFR (CKD) 18.7 (60.0-200.0); Anion Gap 11.7 mmol/L (4.00-12.00); BUN/Creat Ratio 21.76 Ratio (12.00-20.00); Calcium 7.7 mg/dL (8.7-10.3); Carbon Dioxide 16.3 mmol/L (21.6-31.8); Non-African American GFR(CKD) 16.1 (60.0-200.0); Potassium 4.9 mmol/L (3.5-5.5)
[2020-09-09] MEDS ORDERED: DEXAMETHASONE SOD PHOSPHATE 10 MG/ML 1 ML VIAL IV STA (10:56)
[2020-09-09] MEDS ORDERED: SPIRONOLACTONE 25 MG TAB PO SCH (11:00)
[2020-09-09] MEDS: ESCITALOPRAM 10 MG TAB PO SCH (11:14)
[2020-09-09] MEDS: SODIUM CHLORIDE 0.9% 1,000 ML IV SCH (11:15)
[2020-09-09 11:33] LABS: Glucose,Whole Blood 159 mg/dL (75-99)
[2020-09-09] MEDS: SODIUM BICARBONATE TAB 650 MG TAB PO SCH ×2 (12:25→16:57)
--- NOTE | 2020-09-09 13:19 | P.PN ---
Subjective Progress Note Date: 09/09/20 Principal diagnosis: Interstitial lung disease with underlying community-acquired pneumonia, and acute diastolic congestive heart failure, and pleural effusion, and acute exacerbation of COPD. 80-year-old white male patient with past medical history of COPD, current smoker, previous history of CVA/TIA, hyperlipidemia, hypertension, history of myocardial infarction, chronic kidney disease, unspecified, coronary artery disease with stenting, who was transferred from [facility] for pneumonia, acute kidney injury, pleural effusion, and lung nodules. Patient presented to the [facility] for shortness of breath, and right hip pain. Patient was having difficulty walking on his right leg. He reports history of a fall about a week ago however his hip did not start hurting until 2 days ago. He underwent evaluation at the [facility] and CT of the chest abdomen and pelvis. CT chest showed 2 small nodular opacities in the right lung . Previously seen on the CT chest from March 2020, moderate- sized right-sided pleural effusion and right basilar atelectasis. Patient tested negative on his rapid COVID 19 past. X-ray of the pelvis and the right hip were obtained, showing no acute abnormality of the pelvis and right hip. Chest x-ray was obtained at the [facility] showing increasing interstitial and patchy airspace disease, small pleural effusions seen on the lateral view. Pro-calcitonin level came back elevated at 6.87, suggesting possibility of bacterial infection, and proBNP came back at 34,700 increased possibility of acute exacerbation of CHF. Echocardiogram showed EF of 45-50%, moderate LVH, mild TR, mild pulmonary hypertension with PA systolic of 42 mmHg. Patient's current hematocrit of oxygen pulse ox of 95%, has been afebrile, hemodynamically stable, he is short of breath with exertion, he is coughing and bringing up some blood-tinged sputum. His had no fever or chills, COVID 19 PCR was negative. He was started on antibiotics of azithromycin and Rocephin, and we were consulted for possibility of right thoracentesis for diagnostic purposes to rule out malignant process. Chest ultrasound revealed 8.1 cm plural effusion pocket on the right, however after reviewing the ultrasound films. Lung tissue in the plural effusion, and consulted interventional radiology for ultrasound-guided right thoracentesis Reevaluated today on 09/09/2020, upon entering the room, the patient was noted to be in moderate respiratory distress, coughing and wheezing continuously. Patient could not have thoracentesis done by interventional radiology because he couldn't be placed in the proper position, and apparently would not hold still for the thoracentesis. Not to mention the patient seems to be worsening today with worsening cough wheezing and shortness of breath. Chest x-ray shows evidence of interstitial lung disease, right upper lobe infiltrate, and suspect some component of interstitial edema. Patient has an ejection fraction of 45%, and he has mild pulmonary hypertension. Remains on antibiotics in the form of Rocephin and Zithromax, and today I recommended giving the patient more updrafts, I recommended transferring the patient to the ICU, and I will go ahead and give the patient Decadron for his profound wheezing and profound shortness of breath. Apparently his CODE STATUS was changed to DO NOT RESUSCITATE CODE STATUS. But I believe the patient will likely benefit from transfer to the ICU mostly for a bit more aggressive management of his cough and wheezing. I will a lso give the patient diuretics in the form of Aldactone since the patient has severe ALLERGY to sulfa/Lasix. Patient is supposedly ALLERGIC to prednisone, but I will go ahead and give him Decadron otherwise his wheezing could be difficult to control. Patient is clearly in moderate respiratory distress WBC count today is 10.87 hemoglobin is 8.8. Electrolytes are normal BUN is 74 creatinine is 3.4. BNP level is 34 700 Objective - Vital Signs Vital signs: Vital Signs Temp 96.5 F L 09/09/20 12:00 Pulse 101 H 09/09/20 12:00 Resp 14 09/09/20 12:00 BP 191/113 09/09/20 12:00 Pulse Ox 94 L 09/09/20 12:00 Intake & Output 09/08/20 09/09/20 09/09/20 18:59 06:59 18:59 Intake Total 50 Output Total 600 550 200 Balance -600 -550 -150 Intake: IV 50 Sodium Chloride 0.9% 1, 50 000 ml @ 50 mls/hr IV . Q20H [facility] Rx#:[id number] Output: Urine 600 550 200 Other: Voiding Method External Catheter External Catheter External Catheter # Bowel Movements 1 - Exam GENERAL EXAM: Alert, very pleasant, appears generally debilitated, in moderate respiratory distress, on 2 L nasal cannula, O2 saturation is in the high 80s. HEAD: Normocephalic/atraumatic. HEENT: PERRLA, EOMI, nonicteric, dry mucous membranes, no neck masses, no JVD, no stridor. CHEST: No chest wall deformity. Symmetrical expansion. LUNGS: Diffuse rhonchi and wheezes noted bilaterally. CVS: Regular rate and rhythm, normal S1 and S2, no gallops, no murmurs, no rubs ABDOMEN: Soft, nontender. No hepatosplenomegaly, normal bowel sounds, no guardi ng or rigidity. EXTREMITIES: No clubbing, no edema, no cyanosis, 2+ pulses and upper and lower extremities. MUSCULOSKELETAL: Muscle strength and tone normal. SKIN: No rashes CENTRAL NERVOUS SYSTEM: Alert and oriented -3. No focal deficits, tone is normal in all 4 extremities. PSYCHIATRIC: Alert and oriented -3. Appropriate affect. Intact judgment and insight. - Labs CBC & Chem 7: 09/09/20 07:10 09/09/20 07:10 Labs: Abnormal Lab Results - Last 24 Hours (Table) 09/08/20 09/09/20 09/09/20 Range/Units 06:21 07:10 07:10 WBC 10.48 H 10.87 H (4.50-10.00) X 10*3/uL RBC 3.19 L 3.35 L (4.40-5.60) X 10*6/uL Hgb 8.3 L 8.8 L (13.0-17.0) g/dL Hct 28.4 L 29.4 L (39.6-50.0) % MCH 26.0 L 26.3 L (27.0-32.0) pg MCHC 29.2 L 29.9 L (32.0-37.0) g/dL RDW 19.6 H 19.5 H (11.5-14.5) % Plt Count 79 L 133 L (140-440) X 10*3/uL Plt Count Comment DECREASED A Immature Gran # 0.05 H (0.00-0.04) X 10*3/uL Neutrophils # 9.07 H 9.36 H (1.80-7.70) X 10*3/uL Eosinophils # 0.03 L (0.04-0.35) X 10*3/uL Chloride 112 H (96-109) mmol/L Carbon Dioxide 16.3 L (21.6-31.8) mmol/L BUN 74.0 H (9.0-27.0) mg/dL Creatinine 3.4 H (0.6-1.5) mg/dL Est GFR (CKD-EPI)AfAm 18.7 L (60.0-200.0) Est GFR (CKD-EPI)NonAf 16.1 L (60.0-200.0) BUN/Creatinine Ratio 21.76 H (12.00-20.00) Ratio Glucose 114 H (70-110) mg/dL POC Glucose (mg/dL) (75-99) mg/dL Calcium 7.7 L (8.7-10.3) mg/dL 09/09/20 Range/Units 11:32 WBC (4.50-10.00) X 10*3/uL RBC (4.40-5.60) X 10*6/uL Hgb (13.0-17.0) g/dL Hct (39.6-50.0) % MCH (27.0-32.0) pg MCHC (32.0-37.0) g/dL RDW (11.5-14.5) % Plt Count (140-440) X 10*3/uL Plt Count Comment Immature Gran # (0.00-0.04) X 10*3/uL Neutrophils # (1.80-7.70) X 10*3/uL Eosinophils # (0.04-0.35) X 10*3/uL Chloride (96-109) mmol/L Carbon Dioxide (21.6-31.8) mmol/L BUN (9.0-27.0) mg/dL Creatinine (0.6-1.5) mg/dL Est GFR (CKD-EPI)AfAm (60.0-200.0) Est GFR (CKD-EPI)NonAf (60.0-200.0) BUN/Creatinine Ratio (12.00-20.00) Ratio Glucose (70-110) mg/dL POC Glucose (mg/dL) 159 H (75-99) mg/dL Calcium (8.7-10.3) mg/dL Microbiology - Last 24 Hours (Table) 09/08/20 08:38 Gram Stain - Preliminary Sputum Sputum Culture - Preliminary Assessment and Plan Assessment: Impression: 1: Acute on chronic hypoxic respiratory failure, multifactorial secondary to: Acute exacerbation of COPD Acute on chronic systolic congestive heart failure Interstitial lung disease/pulmonary fibrosis Right upper lobe pneumonia, community-acquired Multiple nonspecific pulmonary nodules, etiology is not clear. Chronic systolic congestive heart failure Small right-sided pleural effusion not safe to perform thoracentesis at this point. 2: Multiple comorbidities including chronic kidney disease, coronary artery disease and previous NM, hypertension, history of CVA/TIA, Recommendation: Considering the patient worsening pulmonary status, Will transfer the patient to the ICU. Will give the patient Decadron, diuretics, bronchodilators, and may have to consider placing the patient on BiPAP. Reviewed chest x-ray again and reviewed his ultrasound, again I don't believe it is safe to perform a diagnostic thoracentesis at this point, not to mention the pleural effusion is extremely small We'll continue to follow. Prognosis is definitely poor and guarded. Critical care time is over 30 minutes Time with Patient: Greater than 30
[2020-09-09] MEDS ORDERED: hydrALAZINE HCL 25 MG TAB PO STA (13:58)
[2020-09-09] MEDS ORDERED: methylPREDNISolone SOD SUCCI 125 MG/2 ML VIAL IV STA (15:09)
[2020-09-09] MEDS ORDERED: ALBUTEROL NEBULIZED 2.5 MG/3 ML INHALATION PRN (15:11)
[2020-09-09] MEDS: metOLazone 5 MG TAB PO SCH (15:17)
[2020-09-09] MEDS: hydrALAZINE HCL 50 MG TAB PO SCH ×2 (16:57→21:27)
--- NOTE | 2020-09-09 18:48 | P.PN ---
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 Patient currently admitted under our services for acute on chronic respiratory failure with hypoxia after being transferred from [facility] for pneumonia, acute kidney injury, pleural effusion, and lung nodules. Physical exam: Patient was seen and fully evaluated at the bedside this morning. Patient had an episode this morning and which had significant increased work of breathing accompanied by hypertension and tachycardia. Patient reported feeling very anxious was given 0.25 mg of Ativan resulting in resolution of anxiety, improvement of hypertension, and improvement in his work of breathing. Repeat chest x-ray completed showing no significant changes. Patient was again taken down for thoracentesis and found to be medically unstable to complete. Patient was moved to ICU for closer monitoring at this time. General: non toxic, no distress, appears at stated age, very thin build. Derm: warm, dry Head: atraumatic, normocephalic, symmetric Eyes: EOMI, no lid lag, anicteric sclera Mouth: no lip lesion, mucus membranes moist Cardiovascular: Tachycardic rate, regular rhythm. No murmur, positive posterior tibial pulse bilateral, Lungs: Respirations tachypneic with noted increased respiratory effort and accessory muscle use with any exertion. Patient positive for conversational dyspnea. Patient on 2 L O2 with SpO2 94%. Lungs with significant expiratory wheezes throughout all lobes. Abdominal: soft, nontender to palpation, no guarding, no appreciable o rganomegaly Ext: no gross muscle atrophy, no edema, no contractures Neuro: Speech clear, GCS 15. No focal neuro deficits Psych: Alert, oriented, appropriate affect Assessment and Plan of care: Acute on chronic respiratory failure with hypoxia secondary to a combination of COPD exacerbation, CHF exacerbation, right lung pneumonia, and right lung nodule s with right pleural effusion concerning for possible underlying malignancy -Pulmonology following, appreciate further recommendations. -Continue Oxygenation and titrate as needed to maintain SPO2 equal to or greater than 92% -Telemetry monitoring. -Continuous Pulse-oximetry -Duonebs scheduled with albuterol nebulizers as needed for SOB and/or wheezing -Incentive Spirometry -Steroids: Solu-Medrol 60 mg twice a day -Antibiotics: Azithromycin and Rocephin -CBC revealing improvement in leukocytosis from initial 16.90 down to 10.87. -ProBNP 34,700. Pt started on Aldactone by pulmonology. Right hip pain likely secondary to synovitis -No acute findings on x-ray -MRI right hip and femur showed no evidence of fracture or bone distraction to suggest metastatic disease, however did show increased fluid around the proximal femur that could relate to some synovitis. -Symptomatic treatment and pain management. Thrombocytopenia, improved. -Improved from 79,000 to 133,000. -Continue to monitor with repeat a.m. labs. Hypertension -Monitor vital signs and continue daily medication management. Hyperlipidemia -Continue daily medication management. -Heart healthy diet. CODE STATUS: Full code DVT prophylaxis: heparin Discussed with: patient and RN Anticipated discharge date: pending clinical course Anticipated discharge place: home A total of 45 minutes was spent on the care of this complex patient more than 50% of the time was spent in counseling and care coordination. Objective - Vital Signs Vital signs: Vital Signs Temp 97.4 F L 09/09/20 02:30 Pulse 82 09/09/20 08:03 Resp 20 09/09/20 08:03 BP 162/95 09/09/20 08:03 Pulse Ox 92 L 09/09/20 08:03 Intake & Output 09/08/20 09/09/20 09/09/20 18:59 06:59 18:59 Output Total 600 550 Balance -600 -550 Output: Urine 600 550 Other: Voiding Method External Catheter External Catheter # Bowel Movements 1 - Labs CBC & Chem 7: 09/09/20 07:10 09/09/20 07:10 Labs: Abnormal Lab Results - Last 24 Hours (Table) 09/07/20 09/08/20 09/08/20 Range/Units 03:53 06:21 06:21 WBC 10.48 H (4.50-10.00) X 10*3/uL RBC 3.19 L (4.40-5.60) X 10*6/uL Hgb 8.3 L (13.0-17.0) g/dL Hct 28.4 L (39.6-50.0) % MCH 26.0 L (27.0-32.0) pg MCHC 29.2 L (32.0-37.0) g/dL RDW 19.6 H (11.5-14.5) % Plt Count 79 L (140-440) X 10*3/uL Plt Count Comment DECREASED A Immature Gran # 0.05 H (0.00-0.04) X 10*3/uL Neutrophils # 9.07 H (1.80-7.70) X 10*3/uL Eosinophils # 0.03 L (0.04-0.35) X 10*3/uL Chloride 110 H (96-109) mmol/L Carbon Dioxide 17.9 L (21.6-31.8) mmol/L BUN 66.0 H (9.0-27.0) mg/dL Creatinine 3.3 H (0.6-1.5) mg/dL Est GFR (CKD-EPI)AfAm 19.4 L (60.0-200.0) Est GFR (CKD-EPI)NonAf 16.7 L (60.0-200.0) Calcium 7.5 L (8.7-10.3) mg/dL Procalcitonin 6.87 H (0.02-0.09) ng/mL 09/09/20 Range/Units 07:10 WBC 10.87 H (4.50-10.00) X 10*3/uL RBC 3.35 L (4.40-5.60) X 10*6/uL Hgb 8.8 L (13.0-17.0) g/dL Hct 29.4 L (39.6-50.0) % MCH 26.3 L (27.0-32.0) pg MCHC 29.9 L (32.0-37.0) g/dL RDW 19.5 H (11.5-14.5) % Plt Count 133 L (140-440) X 10*3/uL Plt Count Comment Immature Gran # (0.00-0.04) X 10*3/uL Neutrophils # 9.36 H (1.80-7.70) X 10*3/uL Eosinophils # (0.04-0.35) X 10*3/uL Chloride (96-109) mmol/L Carbon Dioxide (21.6-31.8) mmol/L BUN (9.0-27.0) mg/dL Creatinine (0.6-1.5) mg/dL Est GFR (CKD-EPI)AfAm (60.0-200.0) Est GFR (CKD-EPI)NonAf (60.0-200.0) Calcium (8.7-10.3) mg/dL Procalcitonin (0.02-0.09) ng/mL Microbiology - Last 24 Hours (Table) 09/08/20 08:38 Gram Stain - Preliminary Sputum Sputum Culture - Preliminary <Alesha Montelongo - Last Filed: 09/09/20 19:01> Objective - Vital Signs Vital signs: Vital Signs Temp 96.7 F L 09/09/20 16:00 Pulse 108 H 09/09/20 18:00 Resp 17 09/09/20 18:00 BP 163/108 09/09/20 18:00 Pulse Ox 92 L 09/09/20 18:00 Intake & Output 09/09/20 09/09/20 09/10/20 06:59 18:59 06:59 Intake Total 700 Output Total 550 650 Balance -550 50 Intake: IV 350 Sodium Chloride 0.9% 1, 350 000 ml @ 50 mls/hr IV . Q20H [facility] Rx#:[id number] Oral 350 Output: Urine 550 650 Other: Voiding Method External Catheter External Catheter - Labs CBC & Chem 7: 09/09/20 07:10 09/09/20 07:10 Labs: Abnormal Lab Results - Last 24 Hours (Table) 09/09/20 09/09/20 09/09/20 Range/Units 07:10 07:10 11:32 WBC 10.87 H (4.50-10.00) X 10*3/uL RBC 3.35 L (4.40-5.60) X 10*6/uL Hgb 8.8 L (13.0-17.0) g/dL Hct 29.4 L (39.6-50.0) % MCH 26.3 L (27.0-32.0) pg MCHC 29.9 L (32.0-37.0) g/dL RDW 19.5 H (11.5-14.5) % Plt Count 133 L (140-440) X 10*3/uL Neutrophils # 9.36 H (1.80-7.70) X 10*3/uL Chloride 112 H (96-109) mmol/L Carbon Dioxide 16.3 L (21.6-31.8) mmol/L BUN 74.0 H (9.0-27.0) mg/dL Creatinine 3.4 H (0.6-1.5) mg/dL Est GFR (CKD-EPI)AfAm 18.7 L (60.0-200.0) Est GFR (CKD-EPI)NonAf 16.1 L (60.0-200.0) BUN/Creatinine Ratio 21.76 H (12.00-20.00) Ratio Glucose 114 H (70-110) mg/dL POC Glucose (mg/dL) 159 H (75-99) mg/dL Calcium 7.7 L (8.7-10.3) mg/dL Microbiology - Last 24 Hours (Table) 09/08/20 08:38 Gram Stain - Preliminary Sputum Sputum Culture - Preliminary Assessment and Plan Assessment: Patient seen and examined independently. Patient was also seen by Geovani Unger NP and case was discussed. I am in agreement with subjective, physical exam, a ssessment and plan as written above and amended below. Patient transitions of the ICU at the direction of Dr. Hercules. Patient seen and examined at bedside he reports he is still feeling short of breath and having some chest discomfort. He denies any nausea or vomiting. He states that his reaction to prednisone was depression and altered mentation. General: non toxic, no distress, appears at stated age, cachectic, barrel chested Derm: warm, dry Head: atraumatic, normocephalic, symmetric Eyes: EOMI, no lid lag, anicteric sclera Mouth: no lip lesion, mucus membranes moist Cardiovascular: S1 and S2 tachycardic without murmur positive posterior tibial pulse bilateral, Lungs: diffuse expiratory wheezes, 3 word conversational dyspnea, + accessory muscle use, barrel chested Abdominal: soft, nontender to palpation, no guarding, no appreciable organomegaly Ext: no gross muscle atrophy, no edema, no contractures Neuro: CN II-XI grossly intact, no focal neuro deficits Psych: Alert, oriented, appears anxious Additional diagnosis: Hypertensive urgency -Hydralazine oral 1 now and increase to hydralazine 54 times daily -Consider increasing Coreg in a.m. if blood pressure is still uncontrolled. COPD exacerbation - add pulmicort and solumedrol as allergy to prednisone was altered mentation [facility] depression, support care and monitoring of depressive symptoms. Monitor potassium closely with initiation of spironolactone.
[2020-09-09] MEDS: BUDESONIDE 1 MG/2 ML NEBU INHALATION SCH (19:45)
[2020-09-09] MEDS: methylPREDNISolone SOD SUCCI 125 MG/2 ML VIAL IV SCH (21:28)
[2020-09-10] MEDS ORDERED: hydrALAZINE HCL 50 MG TAB PO ONE
[2020-09-10] MEDS: SODIUM BICARBONATE TAB 650 MG TAB PO SCH ×5 (00:09→20:09)
[2020-09-10] MEDS: HYDROmorphone 0.5 MG/0.5 ML SYRINGE IVP PRN (01:06)
[2020-09-10] MEDS: traZODone HCL 50 MG TAB PO SCH ×2 (01:19→20:08)
[2020-09-10] MEDS ORDERED: LABETALOL 200 MG TAB PO STA (02:19)
[2020-09-10 04:03] LABS: Anisocytosis Slight; Basophils % (A) 0 %; Eosinophils % (A) 0 %; HCT 29.4 % (39.0-53.0); HGB 8.9 gm/dL (13.0-17.5); Hypochromasia Marked; Lymphocytes # (A) 0.3 k/uL (1.0-4.8); Lymphocytes % (A) 4 %; MCH 26.5 pg (25.0-35.0); MCHC 30.1 g/dL (31.0-37.0); MCV 87.9 fL (80.0-100.0); Mean Platelet Volume 8.3; Monocytes # (A) 0.1 k/uL (0-1.0); Monocytes % (A) 2 %; Neutrophils # (A) 5.9 k/uL (1.3-7.7); Neutrophils % (A) 93 %; Platelet Count 128 k/uL (150-450); RBC 3.35 m/uL (4.30-5.90); RDW 19.2 % (11.5-15.5); WBC 6.3 k/uL (3.8-10.6)
[2020-09-10] MEDS: SODIUM CHLORIDE 0.9% 1,000 ML IV SCH ×2 (06:48→23:42)
[2020-09-10] MEDS: carvediloL 6.25 MG TAB PO SCH (06:48)
[2020-09-10] MEDS: BUDESONIDE 1 MG/2 ML NEBU INHALATION SCH ×2 (07:46→20:25)
[2020-09-10] MEDS: IPRATROPIUM-ALBUTEROL 3 ML NEB INHALATION SCH ×4 (07:46→20:25)
--- NOTE | 2020-09-10 07:59 | XR ---
EXAMINATION TYPE: XR chest 1V portable DATE OF EXAM: 09/10/2020 Comparison: 09/09/2020 Clinical History: 80-year-old male pleural effusions Findings: Heart mildly enlarged. Relative upper lung lucencies. Prominent skinfold projects over the upper righ t lung. Hazy lower lung densities suggest small layering effusions. Interstitial densities and patchy right greater than left lung opacities persist. Impression: Mild cardiomegaly with interstitial densities and patchy right greater than left airspace disease dougie ng with small layering effusions. Correlate for CHF with patchy pulmonary edema. Possible background of COPD. Findings likely relatively similar allowing for the semiupright technique on the present leonel alvarado
[2020-09-10] MEDS ORDERED: SPIRONOLACTONE 25 MG TAB PO SCH (09:00)
[2020-09-10] MEDS: guaiFENesin 600 MG TABLET.ER PO SCH ×2 (09:59→20:09)
[2020-09-10] MEDS: ASPIRIN 81 MG PO SCH (09:59)
[2020-09-10] MEDS: AZITHROMYCIN 250 MG TAB PO SCH (09:59)
[2020-09-10] MEDS: hydrALAZINE HCL 50 MG TAB PO SCH ×5 (10:00→20:08)
[2020-09-10] MEDS: metOLazone 5 MG TAB PO SCH (10:00)
[2020-09-10] MEDS: carvediloL 12.5 MG TAB PO SCH ×2 (10:00→17:33)
[2020-09-10] MEDS: ESCITALOPRAM 10 MG TAB PO SCH (10:00)
[2020-09-10] MEDS: HEPARIN SODIUM,PORCINE 5,000 UNIT/ML 1 ML VIAL SQ SCH ×2 (10:00→20:09)
[2020-09-10] MEDS: NICOTINE 21MG/24HR PATCH TRANSDERM SCH ×2 (10:01→10:20)
[2020-09-10] MEDS ORDERED: CALCIUM CARBONATE 500 MG CHEWABLE PO PRN (10:03)
[2020-09-10] MEDS: amLODIPine 5 MG TAB PO SCH ×3 (10:14→20:08)
[2020-09-10] MEDS: PANTOPRAZOLE 40 MG TABLET PO SCH ×2 (10:14→17:42)
[2020-09-10] MEDS: methylPREDNISolone SOD SUCCI 125 MG/2 ML VIAL IV SCH ×3 (10:32→23:43)
--- NOTE | 2020-09-10 11:26 | P.PN ---
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 Patient currently admitted under our services for acute on chronic respiratory failure with hypoxia after being transferred from [facility] for pneumonia, acute kidney injury, pleural effusion, and lung nodules. Per transfer documentation, patient underwent a CT at [facility] which showed 2 small nodular opacities in the right lung and a moderate sized right-sided pleural effusion accompanied by right basilar atelectasis. Upon arrival to our facility repeat chest x-ray was obtained revealing increasing interstitial and patchy airspace disease with small right-sided pleural effusions. Pro-calcitonin was elevated at 6.87 and patient was placed on antibiotics: Azithromycin and Rocephin. Pro- BNP was significantly elevated at 34,700 and patient was placed on Aldactone by pulmonology. Echocardiogram was completed revealing moderate concentric left ventricular hypertrophy with a preserved EF between 45 and 50% and mild pulmona ry hypertension. Covid 19 PCR was negative. On , patient's respiratory effort increased and he was transferred to ICU for closer monitoring. At this time a repeat x-ray was completed revealing persistent areas of coarse infiltrates throughout the perihilar and basilar regions without significant change. Patient's oxygen demand has increased from 2 L O2 to 3 L O2 via nasal cannula. He was then started on steroids at this and to continue scheduled DuoNeb's along with PRN albuterol nebulizer treatments for increased shortness of breath and/or wheezing. Initially patient presented with leukocytosis with WBC count of 16.90 this has been improving daily and this morning, WBCs down to 6.3. On 09/10/20 a repeat follow-up chest x-ray was completed this morning showing mild cardiomegaly with interstitial densities and patchy right greater than left airspace disease along with small layering effusions, concerns for CHF with patchy pulmonary edema. 09/10/20: Patient seen and fully evaluated at the bedside. Patient sitting up in bed, respirations even, regular, and unlabored on 3 L O2 via nasal cannula. SpO2 94%. Patient reports that he feels "much better". He reports that he c ontinues to cough, but no longer coughing up blood-tinged sputum. He remains afebrile and denies having any chills, diaphoresis, headache, chest pain, palpitations, abdominal pain, nausea, vomiting, or experiencing any numbness/tingling/weakness/swelling in his extremities.WBCs continue to improve with morning lab showing WBC count of 6.3. Hemoglobin stable at 8.9. Platelets stable at 128. CO2 now down to 14 from previous 20.2, patients home sodium bicarb tablets were resumed yesterday afternoon. A repeat follow-up chest x-ray was completed this morning showing mild cardiomegaly with interstitial densities and patchy right greater than left airspace disease along with small layering effusions, concerns for CHF with patchy pulmonary edema. Patient does have some noted confusion when compared to his baseline mental status yesterday, confusion likely secondary to initiation of steroids as patient has had similar reaction in the past. Steroids essential at this time secondary to acute respiratory failure, patient's respiratory status has clinically shown significant improvement since initiation of steroids. Physical exam: General: non toxic, no distress, appears at stated age, very thin build. Derm: warm, dry Head: atraumatic, normocephalic, symmetric Eyes: EOMI, no lid lag, anicteric sclera Mouth: no lip lesion, mucus membranes moist, missing teeth Cardiovascular: Regular rate, regular rhythm. No murmur, positive posterior tibial pulses bilaterally, Cap refill < 2 seconds Lungs: Respirations even, regular, and unlabored on 3 L O2 with SpO2 of 94%. Lungs continue to have diffuse bilateral expiratory wheezes worse on right, but significantly improved when compared to yesterday's examination. Abdominal: soft, nontender to palpation, no guarding, no appreciable organomegaly Ext: no gross muscle atrophy, no edema, no contractures Neuro: Speech clear, GCS 14. Pt showing episodes of confusion, but remains alert to person, place and situation. No focal neuro deficits. Psych: Alert, oriented to person, place, and situation. Pleasant and appropriate affect Assessment and Plan of care: Acute on chronic respiratory failure with hypoxia secondary to a combination of COPD exacerbation, CHF exacerbation, right lung pneumonia, and right lung nodules with right pleural effusion concerning for possible underlying malignancy -Pulmonology following, appreciate further recommendations. -Continue Oxygenation and titrate as needed to maintain SPO2 equal to or greater than 92%. Patient currently on 3 L O2 via nasal cannula. -Telemetry monitoring. -Continuous Pulse-oximetry -Duonebs scheduled with albuterol nebulizers as needed for SOB and/or wheezing -Incentive Spirometry, encourage use 10-15 times hourly while awake. -Continuation of Steroids: Solu-Medrol 60 mg twice a day -Continuation of Antibiotics: Azithromycin and Rocephin -CBC revealing improvement in leukocytosis from initial 16.90 down to 6.3. -Continue Aldactone. Right hip pain likely secondary to synovitis -No acute findings on x-ray of right hip or femur. -MRI right hip and femur showed no evidence of fracture or bone distraction to suggest metastatic disease, however did show increased fluid around the proximal femur that could relate to some synovitis. -Symptomatic treatment and pain management. -Fall precautions and patient to be provided with assistance as needed. Acute exacerbation of chronic metabolic acidosis -Patient with a long-standing history of chronic metabolic acidosis with daily medication management being sodium bicarb 650 mg 4 times daily. -Medication was held upon patient's arrival to hospital, CO2 is steadily worsened. Patient started back on sodium bicarb tablets in the afternoon of 09/09/20. -Currently CO2 14 which is down from previous CO2 levels of 20.2. -Patient to continue sodium bicarb tablets and we will repeat CO2 levels with a.m. labs. Acute encephalopathy secondary to administration of steroids -Patient does have some noted confusion when compared to his baseline mental status yesterday, confusion likely secondary to initiation of steroids as patient has had similar reaction in the past. -Steroids essential at this time secondary to acute respiratory failure, patient's respiratory status has clinically shown significant improvement since initiation of steroids. -We will continue steroids at this time, continue to monitor patient closely and provide assistance and redirection as needed. Thrombocytopenia, improved. -Improved from 79,000 to 128,000. -Continue to monitor with repeat a.m. labs. Hypertension -Monitor vital signs and continue daily medication management. Hyperlipidemia -Continue daily medication management. -Heart healthy diet. Chronic microcytic microchromic anemia, stable -Patient with a history of chronic microcytic microchromic anemia with baseline hemoglobin of 9.0. -Hemoglobin currently 8.9. CODE STATUS: Full code DVT prophylaxis: heparin Discussed with: patient and RN Anticipated discharge date: pending clinical course Anticipated discharge place: home A total of 45 minutes was spent on the care of this complex patient more than 50% of the time was spent in counseling and care coordination. Objective - Vital Signs Vital signs: Vital Signs Temp 98 F 09/10/20 04:00 Pulse 70 09/10/20 08:02 Resp 17 09/10/20 07:00 BP 179/110 09/10/20 07:00 Pulse Ox 94 L 09/10/20 07:00 Intake & Output 09/09/20 09/10/20 09/10/20 18:59 06:59 18:59 Intake Total 700 600 50 Output Total 650 850 0 Balance 50 -250 50 Weight 56.7 kg Intake: IV 350 600 50 Sodium Chloride 0.9% 1, 350 600 50 000 ml @ 50 mls/hr IV . Q20H [facility] Rx#:[id number] Oral 350 Output: Urine 650 850 0 Other: Voiding Method External Catheter External Catheter - Labs CBC & Chem 7: 09/10/20 03:28 09/10/20 03:28 Labs: Abnormal Lab Results - Last 24 Hours (Table) 09/09/20 09/09/20 09/09/20 Range/Units 07:10 07:10 11:32 WBC 10.87 H (4.50-10.00) X 10*3/uL RBC 3.35 L (4.40-5.60) X 10*6/uL Hgb 8.8 L (13.0-17.0) g/dL Hct 29.4 L (39.6-50.0) % MCH 26.3 L (27.0-32.0) pg MCHC 29.9 L (32.0-37.0) g/dL RDW 19.5 H (11.5-14.5) % Plt Count 133 L (140-440) X 10*3/uL Neutrophils # 9.36 H (1.80-7.70) X 10*3/uL Lymphocytes # (1.0-4.8) k/uL Sodium (137-145) mmol/L Chloride 112 H (96-109) mmol/L Carbon Dioxide 16.3 L (21.6-31.8) mmol/L BUN 74.0 H (9.0-27.0) mg/dL Creatinine 3.4 H (0.6-1.5) mg/dL Est GFR (CKD-EPI)AfAm 18.7 L (60.0-200.0) Est GFR (CKD-EPI)NonAf 16.1 L (60.0-200.0) BUN/Creatinine Ratio 21.76 H (12.00-20.00) Ratio Glucose 114 H (70-110) mg/dL POC Glucose (mg/dL) 159 H (75-99) mg/dL Calcium 7.7 L (8.7-10.3) mg/dL 09/10/20 09/10/20 Range/Units 03:28 03:28 WBC (4.50-10.00) X 10*3/uL RBC 3.35 L (4.40-5.60) X 10*6/uL Hgb 8.9 L (13.0-17.0) g/dL Hct 29.4 L (39.6-50.0) % MCH (27.0-32.0) pg MCHC 30.1 L (32.0-37.0) g/dL RDW 19.2 H (11.5-14.5) % Plt Count 128 L (140-440) X 10*3/uL Neutrophils # (1.80-7.70) X 10*3/uL Lymphocytes # 0.3 L (1.0-4.8) k/uL Sodium 136 L (137-145) mmol/L Chloride 113 H (96-109) mmol/L Carbon Dioxide 14 L (21.6-31.8) mmol/L BUN 67 H (9.0-27.0) mg/dL Creatinine 2.89 H (0.6-1.5) mg/dL Est GFR (CKD-EPI)AfAm (60.0-200.0) Est GFR (CKD-EPI)NonAf (60.0-200.0) BUN/Creatinine Ratio (12.00-20.00) Ratio Glucose 144 H (70-110) mg/dL POC Glucose (mg/dL) (75-99) mg/dL Calcium 8.0 L (8.7-10.3) mg/dL Microbiology - Last 24 Hours (Table) 09/08/20 08:38 Gram Stain - Final Sputum Sputum Culture - Final <Alesha Montelongo - Last Filed: 09/10/20 17:09> Objective - Vital Signs Vital signs: Vital Signs Temp 96.6 F L 09/10/20 12:00 Pulse 79 09/10/20 16:44 Resp 18 09/10/20 15:00 BP 167/103 09/10/20 15:00 Pulse Ox 97 09/10/20 15:00 Intake & Output 09/09/20 09/10/20 09/10/20 18:59 06:59 18:59 Intake Total 700 600 550 Output Total 650 850 385 Balance 50 -250 165 Weight 56.7 kg Intake: IV 350 600 550 Sodium Chloride 0.9% 1, 350 600 450 000 ml @ 50 mls/hr IV . Q20H [facility] Rx#:[id number] 1 gm In 100 Sodium Chloride 0.9% 50 ml @ 100 mls/hr IVPB Q24HR [facility] Rx#:[id number] Oral 350 Output: Urine 650 850 385 Other: Voiding Method External Catheter External Catheter External Catheter - Labs CBC & Chem 7: 09/10/20 03:28 09/10/20 03:28 Labs: Abnormal Lab Results - Last 24 Hours (Table) 09/10/20 09/10/20 Range/Units 03:28 03:28 RBC 3.35 L (4.30-5.90) m/uL Hgb 8.9 L (13.0-17.5) gm/dL Hct 29.4 L (39.0-53.0) % MCHC 30.1 L (31.0-37.0) g/dL RDW 19.2 H (11.5-15.5) % Plt Count 128 L (150-450) k/uL Lymphocytes # 0.3 L (1.0-4.8) k/uL Sodium 136 L (137-145) mmol/L Chloride 113 H (98-107) mmol/L Carbon Dioxide 14 L (22-30) mmol/L BUN 67 H (9-20) mg/dL Creatinine 2.89 H (0.66-1.25) mg/dL Glucose 144 H (74-99) mg/dL Calcium 8.0 L (8.4-10.2) mg/dL Microbiology - Last 24 Hours (Table) 09/08/20 08:38 Gram Stain - Final Sputum Sputum Culture - Final Assessment and Plan Assessment: Patient seen and examined independently. Patient was also seen by Geovani Unger NP and case was discussed. I am in agreement with subjective, physical exam, assessment and plan as written above and amended below. Patient seen and examined at bedside. He reports that he is feeling better than yesterday. He is breathing easier and he is not having any chest pain. General: non toxic, no distress, appears at stated age Derm: warm, dry Head: atraumatic, normocephalic, symmetric Eyes: EOMI, no lid lag, anicteric sclera Mouth: no lip lesion, mucus membranes moist Cardiovascular: S1S2 reg, no murmur, positive posterior tibial pulse bilateral, Lungs: Faint expiratory wheeze bilateral, no rhonchi, no rales , no accessory muscle use Psych: Alert, slightly confused, appropriate affect
[2020-09-10] MEDS ORDERED: DEXAMETHASONE SOD PHOSPHATE 4 MG/ML 1 ML VIAL IV SCH (12:00)
--- NOTE | 2020-09-10 13:08 | P.PN ---
Subjective Progress Note Date: 09/10/20 Principal diagnosis: Interstitial lung disease with underlying community-acquired pneumonia, and acute diastolic congestive heart failure, and pleural effusion, and acute exacerbation of COPD. 80-year-old white male patient with past medical history of COPD, current smoker, previous history of CVA/TIA, hyperlipidemia, hypertension, history of myocardial infarction, chronic kidney disease, unspecified, coronary artery disease with stenting, who was transferred from [facility] for pneumonia, acute kidney injury, pleural effusion, and lung nodules. Patient presented to the [facility] for shortness of breath, and right hip pain. Patient was having difficulty walking on his right leg. He reports history of a fall about a week ago however his hip did not start hurting until 2 days ago. He underwent evaluation at the [facility] and CT of the chest abdomen and pelvis. CT chest showed 2 small nodular opacities in the right lung . Previously seen on the CT chest from March 2020, moderate- sized right-sided pleural effusion and right basilar atelectasis. Patient tested negative on his rapid COVID 19 past. X-ray of the pelvis and the right hip were obtained, showing no acute abnormality of the pelvis and right hip. Chest x-ray was obtained at the [facility] showing increasing interstitial and patchy airspace disease, small pleural effusions seen on the lateral view. Pro-calcitonin level came back elevated at 6.87, suggesting possibility of bacterial infection, and proBNP came back at 34,700 increased possibility of acute exacerbation of CHF. Echocardiogram showed EF of 45-50%, moderate LVH, mild TR, mild pulmonary hypertension with PA systolic of 42 mmHg. Patient's current hematocrit of oxygen pulse ox of 95%, has been afebrile, hemodynamically stable, he is short of breath with exertion, he is coughing and bringing up some blood-tinged sputum. His had no fever or chills, COVID 19 PCR was negative. He was started on antibiotics of azithromycin and Rocephin, and we were consulted for possibility of right thoracentesis for diagnostic purposes to rule out malignant process. Chest ultrasound revealed 8.1 cm plural effusion pocket on the right, however after reviewing the ultrasound films. Lung tissue in the plural effusion, and consulted interventional radiology for ultrasound-guided right thoracentesis Reevaluated today on 09/09/2020, upon entering the room, the patient was noted to be in moderate respiratory distress, coughing and wheezing continuously. Patient could not have thoracentesis done by interventional radiology because he couldn't be placed in the proper position, and apparently would not hold still for the thoracentesis. Not to mention the patient seems to be worsening today with worsening cough wheezing and shortness of breath. Chest x-ray shows evidence of interstitial lung disease, right upper lobe infiltrate, and suspect some component of interstitial edema. Patient has an ejection fraction of 45%, and he has mild pulmonary hypertension. Remains on antibiotics in the form of Rocephin and Zithromax, and today I recommended giving the patient more updrafts, I recommended transferring the patient to the ICU, and I will go ahead and give the patient Decadron for his profound wheezing and profound shortness of breath. Apparently his CODE STATUS was changed to DO NOT RESUSCITATE CODE STATUS. But I believe the patient will likely benefit from transfer to the ICU mostly for a bit more aggressive management of his cough and wheezing. I will a lso give the patient diuretics in the form of Aldactone since the patient has severe ALLERGY to sulfa/Lasix. Patient is supposedly ALLERGIC to prednisone, but I will go ahead and give him Decadron otherwise his wheezing could be difficult to control. Patient is clearly in moderate respiratory distress WBC count today is 10.87 hemoglobin is 8.8. Electrolytes are normal BUN is 74 creatinine [place] 3[place] [address] Patient was reevaluated today while in the ICU on 09/10/23, patient was young sferred yesterday to the ICU, and I have recommended Decadron, patient also received methylprednisolone, he has received Lasix and Zaroxolyn and updrafts in the form of DuoNeb, remains on Rocephin and Zithromax, this morning he seems to be much more comfortable, in no distress, however his blood pressure remains high, and I recommended increasing Norvasc to 5 mg twice a day and Coreg instead of 6.25 will increase it to 12.5 mg twice a day. We will continue Solu-Medrol, and discontinue Decadron, patient will remain on diuretics as ordered. Chest x- ray continues to show worsening interstitial edema, and I suspect a component of interstitial lung disease. Right upper lobe pneumonia is also not entirely ruled out. Patient is improved, but remains marginal, and his blood pressure remains high. CBC is relatively normal. Electrolytes are normal except for low bicarb of 14, patient does have acute on chronic kidney injury, BUN is 67 and creatinine is 2.89. Echocardiogram did show evidence of mild LV dysfunction and ejection fraction of 45% and he does have mild pulmonary hypertension based on the echo report Objective - Vital Signs Vital signs: Vital Signs Temp 97.7 F 09/10/20 08:00 Pulse 75 09/10/20 11:40 Resp 21 09/10/20 11:00 BP 167/108 09/10/20 11:00 Pulse Ox 92 L 09/10/20 11:00 Intake & Output 09/09/20 09/10/20 09/10/20 18:59 06:59 18:59 Intake Total 700 600 400 Output Total 650 850 325 Balance 50 -250 75 Weight 56.7 kg Intake: IV 350 600 400 Sodium Chloride 0.9% 1, 350 600 300 000 ml @ 50 mls/hr IV . Q20H [facility] Rx#:[id number] cefTRIAXone 1 gm In 100 Sodium Chloride 0.9% 50 ml @ 100 mls/hr IVPB Q24HR [facility] Rx#:[id number] Oral 350 Output: Urine 650 850 325 Other: Voiding Method External Catheter External Catheter External Catheter - Exam GENERAL EXAM: Alert, very pleasant, appears generally debilitated, in moderate respiratory distress, on 3 L nasal cannula with O2 saturation 93%. HEAD: Normocephalic/atraumatic. HEENT: PERRLA, EOMI, nonicteric, dry mucous membranes, no neck masses, no JVD, no stridor. CHEST: No chest wall deformity. Symmetrical expansion. LUNGS: Diminished breath sounds at the bases no rhonchi and no wheezes today. Significantly improved compared to yesterday. CVS: Regular rate and rhythm, normal S1 and S2, no gallops, no murmurs, no rubs ABDOMEN: Soft, nontender. No hepatosplenomegaly, normal bowel sounds, no guarding or rigidity. EXTREMITIES: No clubbing, no edema, no cyanosis, 2+ pulses and upper and lower extremities. MUSCULOSKELETAL: Muscle strength and tone normal. SKIN: No rashes CENTRAL NERVOUS SYSTEM: Alert and oriented -3. No focal deficits, tone is normal in all 4 extremities. PSYCHIATRIC: Alert and oriented -3. Appropriate affect. Intact judgment and insight. - Labs CBC & Chem 7: 09/10/20 03:28 09/10/20 03:28 Labs: Abnormal Lab Results - Last 24 Hours (Table) 09/10/20 09/10/20 Range/Units 03:28 03:28 RBC 3.35 L (4.30-5.90) m/uL Hgb 8.9 L (13.0-17.5) gm/dL Hct 29.4 L (39.0-53.0) % MCHC 30.1 L (31.0-37.0) g/dL RDW 19.2 H (11.5-15.5) % Plt Count 128 L (150-450) k/uL Lymphocytes # 0.3 L (1.0-4.8) k/uL Sodium 136 L (137-145) mmol/L Chloride 113 H (98-107) mmol/L Carbon Dioxide 14 L (22-30) mmol/L BUN 67 H (9-20) mg/dL Creatinine 2.89 H (0.66-1.25) mg/dL Glucose 144 H (74-99) mg/dL Calcium 8.0 L (8.4-10.2) mg/dL Microbiology - Last 24 Hours (Table) 09/08/20 08:38 Gram Stain - Final Sputum Sputum Culture - Final Assessment and Plan Assessment: Impression: 1: Acute on chronic hypoxic respiratory failure, multifactorial secondary to: Acute exacerbation of COPD Acute on chronic systolic congestive heart failure Interstitial lung disease/pulmonary fibrosis Right upper lobe pneumonia, community-acquired Multiple nonspecific pulmonary nodules, etiology is not clear. Chronic systolic congestive heart failure Small right-sided pleural effusion not safe to perform thoracentesis at this point. 2: Multiple comorbidities including chronic kidney disease, coronary artery disease and previous AL, hypertension, history of CVA/TIA, Recommendation: Continue present supportive care measures including bronchodilators, antibiotics, diuretics, steroids, adjust his blood pressure medications to adequately control his blood pressure. Continue to monitor in the ICU. We'll continue to follow. Prognosis is definitely poor and guarded. Time with Patient: Less than 30
[2020-09-10] MEDS ORDERED: carvediloL 12.5 MG TAB PO SCH ×2 (17:30)
[2020-09-10] MEDS ORDERED: amLODIPine 5 MG TAB PO SCH (21:00)
[2020-09-11] MEDS: HYDROmorphone 0.5 MG/0.5 ML SYRINGE IVP PRN ×2 (01:35→21:22)
[2020-09-11 06:04] LABS: Anisocytosis Slight; HCT 27.2 % (39.0-53.0); HGB 8.7 gm/dL (13.0-17.5); Hypochromasia Moderate; MCH 27.1 pg (25.0-35.0); MCHC 31.9 g/dL (31.0-37.0); Mean Platelet Volume 8.3; Microcytosis Slight; Platelet Count 144 k/uL (150-450); Poikilocytosis Slight; RDW 19.6 % (11.5-15.5); WBC 6.2 k/uL (3.8-10.6)
[2020-09-11 06:18] LABS: Magnesium 2.2 mg/dL (1.6-2.3); Potassium 5.5 mmol/L (3.5-5.1)
[2020-09-11] MEDS: carvediloL 12.5 MG TAB PO SCH ×2 (06:57→17:54)
[2020-09-11] MEDS: PANTOPRAZOLE 40 MG TABLET PO SCH ×2 (06:57→17:54)
[2020-09-11] MEDS: IPRATROPIUM-ALBUTEROL 3 ML NEB INHALATION SCH ×4 (07:23→20:17)
[2020-09-11] MEDS: BUDESONIDE 1 MG/2 ML NEBU INHALATION SCH ×2 (07:23→20:16)
--- NOTE | 2020-09-11 07:41 | XR ---
EXAMINATION TYPE: XR chest 1V portable DATE OF EXAM: 09/11/2020 COMPARISON: 09/10/2020 INDICATION: Bilateral pleural effusions TECHNIQUE: Single frontal view of the chest is obtained. FINDINGS: The heart size is normal. The pulmonary vasculature is prominent. Patchy infiltrate is present. Correlate for pulmonary edema. This may be slightly improved over the i nterval. IMPRESSION: 1. Clinical consideration for congestive heart failure is recommended. This may have slight improveme nt over the interval.
[2020-09-11] MEDS ORDERED: SODIUM BICARB 8.4% 50 ML SYR (1 MEQ/ML) IV ONE (09:15)
[2020-09-11] MEDS: methylPREDNISolone SOD SUCCI 125 MG/2 ML VIAL IV SCH (09:24)
[2020-09-11] MEDS: SODIUM BICARBONATE TAB 650 MG TAB PO SCH ×3 (09:25→21:21)
[2020-09-11] MEDS: NICOTINE 21MG/24HR PATCH TRANSDERM SCH (09:25)
[2020-09-11] MEDS: FUROSEMIDE 10 MG/ML 4 ML VIAL IV SCH (09:34)
[2020-09-11] MEDS: amLODIPine 5 MG TAB PO SCH ×2 (09:35→21:22)
[2020-09-11] MEDS: AZITHROMYCIN 250 MG TAB PO SCH (09:35)
[2020-09-11] MEDS: HEPARIN SODIUM,PORCINE 5,000 UNIT/ML 1 ML VIAL SQ SCH ×2 (09:35→21:23)
[2020-09-11] MEDS: metOLazone 5 MG TAB PO SCH (09:35)
[2020-09-11] MEDS: hydrALAZINE HCL 50 MG TAB PO SCH ×4 (09:35→21:22)
[2020-09-11] MEDS: ASPIRIN 81 MG PO SCH (09:36)
[2020-09-11] MEDS: guaiFENesin 600 MG TABLET.ER PO SCH ×2 (09:36→21:25)
[2020-09-11] MEDS: ESCITALOPRAM 10 MG TAB PO SCH (09:36)
--- NOTE | 2020-09-11 09:46 | P.NPCON ---
History of Present Illness - Reason for Consult acute renal failure, chronic renal failure - History of Present Illness Reason for consultation: Acute kidney injury on chronic kidney disease History of present illness: I sent patient is a 80-year-old male seen in renal consultation for acute kidney injury on chronic kidney disease. Patient has chronic kidney disease stage IV secondary to nephrosclerosis with baseline creatinine in the range of 2.8-2.9. Creatinine peaked at 3.4 this admission and is 2.87 today. He is maintained on normal saline at 50 mL an hour. He was receiving oral bicarb but it was stopped and subsequently resumed again yesterday. Patient's bicarb level today is 15. He was also on Aldactone which was stopped due to high potassium this morning. He is now on Lasix 40 mg IV once daily. Chest x-ray suggestive of fluid overload. He is currently being treated for pneumonia as well as COPD. He is on 3 L is cannula. Denies chest pain or shortness of breath. Has good urine output. Blood pressure stable. No vomiting or diarrhea. Oral intake is good. Patient has systolic CHF with ejection fraction of 45-50%. Vital signs are stable. General: The patient appeared well nourished and normally developed. HEENT: Head exam is unremarkable. Neck is without jugular venous distension. LUNGS: Breath sounds decreased. HEART: Rate and Rhythm are regular. ABDOMEN: Soft, nontender. EXTREMITITES: No edema. Past Medical History Past Medical History: Coronary Artery Disease (CAD), COPD, CVA/TIA, Hyperlipidemia, Hypertension, Myocardial Infarction (LA), Renal Disease Additional Past Medical History / Comment(s): chronic back pain Last Myocardial Infarction Date:: 2012 History of Any Multi-Drug Resistant Organisms: None Reported Past Surgical History: Heart Catheterization, Heart Catheterization With Stent, Orthopedic Surgery Additional Past Surgical History / Comment(s): lt femur Past Anesthesia/Blood Transfusion Reactions: No Reported Reaction Date of Last Stent Placement:: 2012 Past Psychological History: No Psychological Hx Reported Smoking Status: Never smoker Past Alcohol Use History: None Reported Past Drug Use History: None Reported - Past Family History Father History Unknown: Yes Mother History Unknown: Yes Medications and Allergies Home Medications Medication Instructions Recorded Confirmed Type Albuterol Sulfate [Ventolin HFA] 2 puff INHALATION RT-Q4H PRN 04/18/20 09/07/20 History Aspirin 81 mg PO DAILY #30 chew 04/20/20 09/07/20 Rx Sodium Bicarbonate Tab 650 mg PO QID #120 tab 04/20/20 09/07/20 Rx carvediloL [Coreg] 12.5 mg PO AC-BID #60 tab 04/20/20 09/07/20 Rx Gabapentin [Neurontin] 300 mg PO TID PRN 06/18/20 09/07/20 History Ipratropium-Albuterol Nebulize 3 ml INHALATION RT-QID PRN ml 06/23/20 09/07/20 Rx [Duoneb 0.5 mg-3 mg/3 ml Soln] Escitalopram [Lexapro] 10 mg PO DAILY 09/07/20 09/07/20 History hydrALAZINE HCL [Apresoline] 20 mg PO QID 09/07/20 09/07/20 History traZODone HCL 50 mg PO HS 09/07/20 09/07/20 History Allergies Allergy/AdvReac Type Severity Reaction Status Date / Time Penicillins Allergy Unknown Verified 09/07/20 09:37 Sulfa (Sulfonamide Allergy Unknown Verified 09/07/20 09:37 Antibiotics) prednisone AdvReac Confusion Verified 09/07/20 09:42 Physical Exam Vitals: Vital Signs Temp Pulse Resp BP Pulse Ox 09/11/20 07:35 99 09/11/20 07:26 105 H 09/11/20 07:00 78 17 144/98 93 L 09/11/20 06:00 81 12 147/101 93 L 09/11/20 05:00 85 12 150/129 92 L 09/11/20 04:00 98.3 F 80 12 152/93 93 L 09/11/20 03:00 71 9 L 146/99 93 L 09/11/20 02:00 73 9 L 156/108 93 L 09/11/20 01:00 85 28 H 155/94 94 L 09/11/20 00:00 97.4 F L 78 14 149/91 94 L 09/10/20 23:02 74 15 94 L 09/10/20 23:00 73 12 158/94 94 L 09/10/20 22:00 76 16 145/89 95 09/10/20 21:00 71 12 144/101 97 09/10/20 20:37 78 02/18/21 20:26 76 09/10/20 20:00 97.7 F 82 30 H 141/98 95 09/10/20 19:00 90 24 155/98 92 L 09/10/20 18:00 105 H 23 158/101 93 L 09/10/20 17:00 76 13 161/118 97 09/10/20 16:44 79 09/10/20 16:27 77 09/10/20 16:00 97.7 F 80 21 172/113 91 L 09/10/20 15:00 66 18 167/103 97 09/10/20 14:00 76 21 149/108 94 L 09/10/20 13:00 77 18 173/99 95 09/10/20 12:00 96.6 F L 84 19 176/112 94 L 09/10/20 11:40 75 09/10/20 11:30 78 09/10/20 11:00 75 21 167/108 92 L 09/10/20 10:30 77 19 167/108 93 L 09/10/20 10:00 72 14 160/102 93 L Intake and Output 09/10/20 09/11/20 09/11/20 22:59 06:59 14:59 Intake Total 400 450 Output Total 605 680 Balance -205 -230 Intake: IV 400 450 Sodium Chloride 0.9% 1, 150 000 ml @ 50 mls/hr IV . Q20H [facility] Rx#:[id number] cefTRIAXone 1 gm In 250 450 Sodium Chloride 0.9% 50 ml @ 100 mls/hr IVPB Q24HR [facility] Rx#:[id number] Output: Urine 605 680 Other: Voiding Method External Catheter External Catheter Weight 56.8 kg Results - Lab Results Most recent lab results Calcium 8.0 mg/dL (8.4-10.2) L 09/11/20 05:35 Magnesium 2.2 mg/dL (1.6-2.3) 09/11/20 05:35 09/11/20 05:35 09/11/20 05:35 Assessment and Plan Plan: Assessment: 1. Acute kidney injury mostly prerenal secondary to infection cardiorenal. Creatinine peaked at 3.4 this admission and is 2.87 today. 2. Chronic kidney disease stage IV with baseline creatinine 2.8-2.9 secondary to nephrosclerosis. 3. Acute on chronic systolic CHF with ejection fraction of 45-50%. 4. Metabolic acidosis secondary to chronic kidney disease and IV fluids. 5. Hypertension with chronic kidney disease. Stable. 6. Hyperkalemia secondary to chronic kidney disease, metabolic acidosis and Aldactone. 7. Pneumonia maintained on antibiotics. 8. Anemia of chronic kidney disease. Rule out iron deficiency. Plan: Hep-Lock IV fluids. Change oral bicarbonate 1300 mg twice daily. I will also give him 2 A of bicarb IV push now. Maintain IV Lasix and agree with stopping Aldactone. Repeat BMP this evening. Avoid nephrotoxins. Continue to monitor renal function and urine output. Check iron studies. Thank you for the consultation. I will continue to follow the patient with you during his hospital stay.
--- NOTE | 2020-09-11 09:59 | P.PN ---
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 Patient currently admitted under our services for acute on chronic respiratory failure with hypoxia after being transferred from [facility] for pneumonia, acute kidney injury, pleural effusion, and lung nodules. Per transfer documentation, patient underwent a CT at [facility] which showed 2 small nodular opacities in the right lung and a moderate sized right-sided pleural effusion accompanied by right basilar atelectasis. Upon arrival to our facility repeat chest x-ray was obtained revealing increasing interstitial and patchy airspace disease with small right-sided pleural effusions. Pro-calcitonin was elevated at 6.87 and patient was placed on antibiotics: Azithromycin and Rocephin. Pro- BNP was significantly elevated at 34,700 and patient was placed on Aldactone by pulmonology. Echocardiogram was completed revealing moderate concentric left ventricular hypertrophy with a preserved EF between 45 and 50% and mild pulmon sara hypertension. Covid 19 PCR was negative. On , patient's respiratory effort increased and he was transferred to ICU for closer monitoring. At this time a repeat x-ray was completed revealing persistent areas of coarse infiltrates throughout the perihilar and basilar regions without significant change. Patient's oxygen demand has increased from 2 L O2 to 3 L O2 via nasal cannula. He was then started on steroids at this and to continue scheduled DuoNeb's along with PRN albuterol nebulizer treatments for increased shortness of breath and/or wheezing. Initially patient presented with leukocytosis with WBC count of 16.90 this has been improving daily and this morning, WBCs down to 6.3. On 09/10/20 a repeat follow-up chest x-ray was completed this morning showing mild cardiomegaly with interstitial densities and patchy right greater than left airspace disease along with small layering effusions, concerns for CHF with patchy pulmonary edema. 09/10/20: Patient seen and fully evaluated at the bedside. Patient sitting up in bed, respirations even, regular, and unlabored on 3 L O2 via nasal cannula. SpO2 94%. Patient reports that he feels "much better". He reports that he continues to cough, but no longer coughing up blood-tinged sputum. He remains afebrile and denies having any chills, diaphoresis, headache, chest pain, palpi tations, abdominal pain, nausea, vomiting, or experiencing any numbness/tingling/weakness/swelling in his extremities.WBCs continue to improve with morning lab showing WBC count of 6.3. Hemoglobin stable at 8.9. Platelets stable at 128. CO2 now down to 14 from previous 20.2, patients home sodium bicarb tablets were resumed yesterday afternoon. A repeat follow-up chest x-ray was completed this morning showing mild cardiomegaly with interstitial densities and patchy right greater than left airspace disease along with small layering effusions, concerns for CHF with patchy pulmonary edema. Patient does have some noted confusion when compared to his baseline mental status yesterday, confusion likely secondary to initiation of steroids as patient has had similar reaction in the past. Steroids essential at this time secondary to acute respiratory failure, patient's respiratory status has clinically shown significant improvement since initiation of steroids. 09/11/20: Patient was seen and fully evaluated at bedside this morning. RN reports patient had multiple episodes of increased confusion throughout the night but has been redirectable and currently doing much better. Upon physical assessment, patient was resting in bed and was alert and oriented to person, place, and situation. Patient states that he did not know why he was confused earlier in the morning, but reports he feels better now. Reassured patient that episodic confusion is likely a side effect of the steroids we are giving him to help him with his breathing. Patient does report that his breathing feels better and he doesn't seem to be coughing as much. However, he was noted to have tachypneic respirations at 24 breaths per minute with an increased respiratory effort and noted conversational dyspnea. He remains on 3 L O2 unchanged from yesterday and pulse ox stable at 94%. Patient denies having any headache, lightheadedness, dizziness, changes in his vision or hearing, chest pain or palpitations, nausea, or experiencing any numbness/tingling/weakness in extremities. His WBC count remains stable at 6.2. Hemoglobin remains stable at 8.7. Potassium was found to be elevated at 5.5 likely secondary to administration of Aldactone with patient stage IV CKD, Aldactone discontinued at this time in order placed for IV Lasix. CO2 remains low despite day 3 since resuming sodium bicarb tablets. Order placed to nephrology at this time secondary to patient stage IV CKD with chronic metabolic acidosis and hyperkalemia. Physical exam: General: non toxic, no distress, appears at stated age, very thin build. Derm: warm, dry Head: atraumatic, normocephalic, symmetric Eyes: EOMI, no lid lag, anicteric sclera Mouth: no lip lesion, mucus membranes moist, missing teeth Cardiovascular: Regular rate, regular rhythm. No murmur, positive posterior tibial pulses bilaterally, Cap refill < 2 seconds Lungs: Respirations even, regular, and tachypneic at 24 breths per minute on 3 L O2 with SpO2 of 94%. Pt has increased pulmonary effort and noted conversational dyspnea, but not in acute respiratory distress at this time. Lungs continue to have diffuse bilateral expiratory wheezes worse throughout all lung matt. Barrel Chest. Abdominal: soft, nontender to palpation, no guarding, no appreciable organomegaly Ext: no gross muscle atrophy, no edema, no contractures Neuro: Speech clear, GCS 15. Pt reportedly had episodes of confusion overnight and early this morning currently he is alert to person, place and situation. No focal neuro deficits. Psych: Alert, oriented to person, place, and situation. Pleasant and appropriate affect. Assessment and Plan of care: Acute on chronic respiratory failure with hypoxia secondary to a combination of COPD exacerbation, CHF exacerbation, right lung pneumonia, and right lung nodules with right pleural effusion concerning for possible underlying malignancy -Pulmonology following, appreciate further recommendations. -Continue Oxygenation and titrate as needed to maintain SPO2 equal to or greater than 92%. Patient currently on 3 L O2 via nasal cannula. We will wean off oxygen when able. -Telemetry monitoring. -Continuous Pulse-oximetry -Duonebs scheduled with albuterol nebulizers as needed for SOB and/or wheezing -Incentive Spirometry, encourage use 10-15 times hourly while awake. -Continuation of Steroids: Solu-Medrol. Increased by pulmonology yesterday to 60 mg IVP every 8 hours. -Continuation of Antibiotics: Azithromycin and Rocephin (day 5 of antibiotics) -CBC revealing improvement in leukocytosis from initial 16.90 down to 6.2. -Aldactone discontinued secondary to hyperkalemia, order placed for IV Lasix 40 mg daily. Acute exacerbation of chronic metabolic acidosis secondary to stage IV CKD -Patient with a long-standing history of chronic metabolic acidosis with daily medication management being sodium bicarb 650 mg 4 times daily. -Patient's medication was held upon arrival to hospital and CO2 levels decreased and sodium bicarb tablets were resumed on 09/09/20. -Currently CO2 15 which remains down from previous CO2 levels of 20.2. Consult placed to nephrology at this time. -Pt may need bicarb infusion, but we will hold off at this time pending recommendations by fuel cell systems engineer. Patient to continue sodium bicarb tablets and we will repeat CO2 levels with a.m. labs. Acute encephalopathy secondary to administration of steroids -Patient continues to have mild confusion when compared to his baseline mental status but is easily redirectable. This confusion likely secondary to initiation of steroids as patient has had similar reaction in the past with prednisolone. -Steroids remain essential at this time secondary to acute respiratory failure. -We will continue Solumedrol at this time, continue to monitor patient closely and provide assistance and redirection as needed. Right hip pain likely secondary to synovitis -No acute findings on x-ray of right hip or femur. -MRI right hip and femur showed no evidence of fracture or bone distraction to suggest metastatic disease, however did show increased fluid around the proximal femur that could relate to some synovitis. -Symptomatic treatment and pain management. -Fall precautions and patient to be provided with assistance as needed. Thrombocytopenia, improved. -Improved from 79,000 to 144,000. -Continue to monitor with repeat a.m. labs. Hypertension -Monitor vital signs and continue daily medication management. -Norvasc increased to 5 mg twice a day and carvedilol also increased to 12.5 mg twice daily secondary to patient's persistent hypertension. Blood pressure is improving. Hyperlipidemia -Continue daily medication management. -Heart healthy diet. Chronic microcytic microchromic anemia, stable -Patient with a history of chronic microcytic microchromic anemia with baseline hemoglobin of 9.0. -Hemoglobin currently 8.7. CODE STATUS: Full code DVT prophylaxis: heparin Discussed with: patient and RN Anticipated discharge date: Pending clinical course Anticipated discharge place: Home A total of 45 minutes was spent on the care of this complex patient more than 50% of the time was spent in counseling and care coordination. Objective - Vital Signs Vital signs: Vital Signs Temp 98.3 F 09/11/20 04:00 Pulse 99 09/11/20 07:35 Resp 17 09/11/20 07:00 BP 144/98 09/11/20 07:00 Pulse Ox 93 L 09/11/20 07:00 Intake & Output 09/10/20 09/11/20 09/11/20 18:59 06:59 18:59 Intake Total 700 650 Output Total 660 980 Balance 40 -330 Weight 56.8 kg Intake: IV 700 650 Sodium Chloride 0.9% 1, 550 000 ml @ 50 mls/hr IV . Q20H [facility] Rx#:[id number] cefTRIAXone 1 gm In 150 650 Sodium Chloride 0.9% 50 ml @ 100 mls/hr IVPB Q24HR [facility] Rx#:[id number] Output: Urine 660 980 Other: Voiding Method External Catheter External Catheter - Labs CBC & Chem 7: 09/11/20 05:35 09/11/20 05:35 Labs: Abnormal Lab Results - Last 24 Hours (Table) 09/11/20 09/11/20 Range/Units 05:35 05:35 RBC 3.20 L (4.30-5.90) m/uL Hgb 8.7 L (13.0-17.5) gm/dL Hct 27.2 L (39.0-53.0) % RDW 19.6 H (11.5-15.5) % Plt Count 144 L (150-450) k/uL Potassium 5.5 H (3.5-5.1) mmol/L Chloride 112 H (98-107) mmol/L Carbon Dioxide 15 L (22-30) mmol/L BUN 74 H (9-20) mg/dL Creatinine 2.87 H (0.66-1.25) mg/dL Glucose 139 H (74-99) mg/dL Calcium 8.0 L (8.4-10.2) mg/dL Microbiology - Last 24 Hours (Table) 09/08/20 08:38 Gram Stain - Final Sputum Sputum Culture - Final <Alesha Montelongo - Last Filed: 09/11/20 14:34> Objective - Vital Signs Vital signs: Vital Signs Temp 97.7 F 09/11/20 12:00 Pulse 80 09/11/20 13:00 Resp 14 09/11/20 13:00 BP 166/114 09/11/20 13:00 Pulse Ox 92 L 09/11/20 13:00 Intake & Output 09/10/20 09/11/20 09/11/20 18:59 06:59 18:59 Intake Total 700 650 100 Output Total 660 980 575 Balance 40 -330 -475 Weight 56.8 kg 56.8 kg Intake: IV 700 650 100 Sodium Chloride 0.9% 1, 550 100 000 ml @ 50 mls/hr IV . Q20H [facility] Rx#:[id number] cefTRIAXone 1 gm In 150 650 Sodium Chloride 0.9% 50 ml @ 100 mls/hr IVPB Q24HR [facility] Rx#:[id number] Output: Urine 660 980 575 Other: Voiding Method External Catheter External Catheter External Catheter - Labs CBC & Chem 7: 09/11/20 05:35 09/11/20 05:35 Labs: Abnormal Lab Results - Last 24 Hours (Table) 09/11/20 09/11/20 Range/Units 05:35 05:35 RBC 3.20 L (4.30-5.90) m/uL Hgb 8.7 L (13.0-17.5) gm/dL Hct 27.2 L (39.0-53.0) % RDW 19.6 H (11.5-15.5) % Plt Count 144 L (150-450) k/uL Potassium 5.5 H (3.5-5.1) mmol/L Chloride 112 H (98-107) mmol/L Carbon Dioxide 15 L (22-30) mmol/L BUN 74 H (9-20) mg/dL Creatinine 2.87 H (0.66-1.25) mg/dL Glucose 139 H (74-99) mg/dL Calcium 8.0 L (8.4-10.2) mg/dL Microbiology - Last 24 Hours (Table) 09/08/20 08:38 Gram Stain - Final Sputum Sputum Culture - Final Assessment and Plan Assessment: Patient seen and examined independently. Patient was also seen by Geovani Unger NP and case was discussed. I am in agreement with subjective, physical exam, assessment and plan as written above and amended below. He is aware that he was confused last night but feels better today. States his breathing is much better than 2 days ago. No additional chest pain. Feeling much improved. General: non toxic, no distress, appears at stated age Derm: warm, dry Head: atraumatic, normocephalic, symmetric Eyes: EOMI, no lid lag, anicteric sclera Mouth: no lip lesion, mucus membranes moist Cardiovascular: S1S2 reg, no murmur, positive posterior tibial pulse bilateral, Lungs: Course breath sounds bilateral, no rhonchi, no rales , no accessory muscle use Abdominal: soft, nontender to palpation, no guarding, no appreciable organomegaly Psych: Alert, oriented, appropriate affect Diagnosis: Worsening Metabolic Acodosis due to CKD IV, NELI resolved, hyperkalemia - D/W nephrology Acute on Chronic Systolic CHF - plan as outlined above.
[2020-09-11 10:34] VITALS: BMI 21.4
--- NOTE | 2020-09-11 13:20 | P.PN ---
Subjective Progress Note Date: 09/11/20 Principal diagnosis: Interstitial lung disease with underlying community-acquired pneumonia, and acute diastolic congestive heart failure, and pleural effusion, and acute exacerbation of COPD. 80-year-old white male patient with past medical history of COPD, current smoker, previous history of CVA/TIA, hyperlipidemia, hypertension, history of myocardial infarction, chronic kidney disease, unspecified, coronary artery disease with stenting, who was transferred from [facility] for pneumonia, acute kidney injury, pleural effusion, and lung nodules. Patient presented to the [facility] for shortness of breath, and right hip pain. Patient was having difficulty walking on his right leg. He reports history of a fall about a week ago however his hip did not start hurting until 2 days ago. He underwent evaluation at the [facility] and CT of the chest abdomen and pelvis. CT chest showed 2 small nodular opacities in the right lung . Previously seen on the CT chest from March 2020, moderate- sized right-sided pleural effusion and right basilar atelectasis. Patient tested negative on his rapid COVID 19 past. X-ray of the pelvis and the right hip were obtained, showing no acute abnormality of the pelvis and right hip. Chest x-ray was obtained at the [facility] showing increasing interstitial and patchy airspace disease, small pleural effusions seen on the lateral view. Pro-calcitonin level came back elevated at 6.87, suggesting possibility of bacterial infection, and proBNP came back at 34,700 increased possibility of acute exacerbation of CHF. Echocardiogram showed EF of 45-50%, moderate LVH, mild TR, mild pulmonary hypertension with PA systolic of 42 mmHg. Patient's current hematocrit of oxygen pulse ox of 95%, has been afebrile, hemodynamically stable, he is short of breath with exertion, he is coughing and bringing up some blood-tinged sputum. His had no fever or chills, COVID 19 PCR was negative. He was started on antibiotics of azithromycin and Rocephin, and we were consulted for possibility of right thoracentesis for diagnostic purposes to rule out malignant process. Chest ultrasound revealed 8.1 cm plural effusion pocket on the right, however after reviewing the ultrasound films. Lung tissue in the plural effusion, and consulted interventional radiology for ultrasound-guided right thoracentesis Reevaluated today on 09/09/2020, upon entering the room, the patient was noted to be in moderate respiratory distress, coughing and wheezing continuously. Patient could not have thoracentesis done by interventional radiology because he couldn't be placed in the proper position, and apparently would not hold still for the thoracentesis. Not to mention the patient seems to be worsening today with worsening cough wheezing and shortness of breath. Chest x-ray shows evidence of interstitial lung disease, right upper lobe infiltrate, and suspect some component of interstitial edema. Patient has an ejection fraction of 45%, and he has mild pulmonary hypertension. Remains on antibiotics in the form of Rocephin and Zithromax, and today I recommended giving the patient more updrafts, I recommended transferring the patient to the ICU, and I will go ahead and give the patient Decadron for his profound wheezing and profound shortness of breath. Apparently his CODE STATUS was changed to DO NOT RESUSCITATE CODE STATUS. But I believe the patient will likely benefit from transfer to the ICU mostly for a bit more aggressive management of his cough and wheezing. I will a lso give the patient diuretics in the form of Aldactone since the patient has severe ALLERGY to sulfa/Lasix. Patient is supposedly ALLERGIC to prednisone, but I will go ahead and give him Decadron otherwise his wheezing could be difficult to control. Patient is clearly in moderate respiratory distress WBC count today is 10.87 hemoglobin is 8.8. Electrolytes are normal BUN is 74 creatinine [place] 3[place] [address] Patient was reevaluated today while in the ICU on 09/10/19, patient was young sferred yesterday to the ICU, and I have recommended Decadron, patient also received methylprednisolone, he has received Lasix and Zaroxolyn and updrafts in the form of DuoNeb, remains on Rocephin and Zithromax, this morning he seems to be much more comfortable, in no distress, however his blood pressure remains high, and I recommended increasing Norvasc to 5 mg twice a day and Coreg instead of 6.25 will increase it to 12.5 mg twice a day. We will continue Solu-Medrol, and discontinue Decadron, patient will remain on diuretics as ordered. Chest x- ray continues to show worsening interstitial edema, and I suspect a component of interstitial lung disease. Right upper lobe pneumonia is also not entirely ruled out. Patient is improved, but remains marginal, and his blood pressure remains high. CBC is relatively normal. Electrolytes are normal except for low bicarb of 14, patient does have acute on chronic kidney injury, BUN is 67 and creatinine is 2.89. Echocardiogram did show evidence of mild LV dysfunction and ejection fraction of 45% and he does have mild pulmonary hypertension based on the echo report Patient was reevaluated today on 09/11/2019, patient remains in the ICU, feeling much better today compared to the last couple of days. 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 Hence I will discontinue methylprednisolone, and will not use any steroids however if needed to use steroids, with his Decadron only. Patient is responding well to diuretics, however his Aldactone was dis continued mostly because of high potassium. He remains on Lasix at 40 mg IV push once daily. Chest x-ray is showing improvement but nonetheless continues to show some fluid overload. And underlying infiltrate is not entirely ruled out in the right upper lobe. His pulmonary status is significantly improved over the last 2 days, and I will plan to transfer the patient out of the ICU to a regular medical floor. CBC today is relatively normal except for hemoglobin of 8.7 electrolytes showed elevated potassium of 5.5 hence no further Aldactone to be given. BUN is 74 and creatinine is down to 2.87, improving. In spite of diuretics Objective - Vital Signs Vital signs: Vital Signs Temp 97.7 F 09/11/20 12:00 Pulse 80 09/11/20 13:00 Resp 14 09/11/20 13:00 BP 166/114 09/11/20 13:00 Pulse Ox 92 L 09/11/20 13:00 Intake & Output 09/10/20 09/11/20 09/11/20 18:59 06:59 18:59 Intake Total 700 650 100 Output Total 660 980 575 Balance 40 -330 -475 Weight 56.8 kg 56.8 kg Intake: IV 700 650 100 Sodium Chloride 0.9% 1, 550 100 000 ml @ 50 mls/hr IV . Q20H [facility] Rx#:[id number] cefTRIAXone 1 gm In 150 650 Sodium Chloride 0.9% 50 ml @ 100 mls/hr IVPB Q24HR [facility] Rx#:[id number] Output: Urine 660 980 575 Other: Voiding Method External Catheter External Catheter External Catheter - Exam GENERAL EXAM: Alert, very pleasant, little confused, in no distress, remains on 3 L nasal cannula HEAD: Normocephalic/atraumatic. HEENT: PERRLA, EOMI, nonicteric, dry mucous membranes, no neck masses, no JVD, no stridor. CHEST: No chest wall deformity. Symmetrical expansion. LUNGS: Diminished breath sounds at the bases no rhonchi and no wheezes today. CVS: Regular rate and rhythm, normal S1 and S2, no gallops, no murmurs, no rubs ABDOMEN: Soft, nontender. No hepatosplenomegaly, normal bowel sounds, no guarding or rigidity. EXTREMITIES: No clubbing, no edema, no cyanosis, 2+ pulses and upper and lower extremities. MUSCULOSKELETAL: Muscle strength and tone normal. SKIN: No rashes CENTRAL NERVOUS SYSTEM: Alert and oriented -3. Intermittently confused PSYCHIATRIC: Normal mood and affect, with intermittent confusion as noted by the nurse taking care of the patient - Labs CBC & Chem 7: 09/11/20 05:35 09/11/20 05:35 Labs: Abnormal Lab Results - Last 24 Hours (Table) 09/11/20 09/11/20 Range/Units 05:35 05:35 RBC 3.20 L (4.30-5.90) m/uL Hgb 8.7 L (13.0-17.5) gm/dL Hct 27.2 L (39.0-53.0) % RDW 19.6 H (11.5-15.5) % Plt Count 144 L (150-450) k/uL Potassium 5.5 H (3.5-5.1) mmol/L Chloride 112 H (98-107) mmol/L Carbon Dioxide 15 L (22-30) mmol/L BUN 74 H (9-20) mg/dL Creatinine 2.87 H (0.66-1.25) mg/dL Glucose 139 H (74-99) mg/dL Calcium 8.0 L (8.4-10.2) mg/dL Microbiology - Last 24 Hours (Table) 09/08/20 08:38 Gram Stain - Final Sputum Sputum Culture - Final Assessment and Plan Assessment: Impression: 1: Acute on chronic hypoxic respiratory failure, multifactorial secondary to: Acute exacerbation of COPD Acute on chronic systolic congestive heart failure Interstitial lung disease/pulmonary fibrosis Right upper lobe pneumonia, community-acquired, sputum is nondiagnostic Multiple nonspecific pulmonary nodules, etiology is not clear. Not a good candidate for invasive intervention. Chronic systolic congestive heart failure Small right-sided pleural effusion seems to have resolved based on the chest x- ray findings, no need for thoracentesis 2: Multiple comorbidities including chronic kidney disease, coronary artery disease and previous HI, hypertension, history of CVA/TIA, 3: Suspect acute metabolic encephalopathy strongly suspect his mental status change and encephalopathy to be secondary to steroid/methylprednisolone. And this will be discontinued today. Recommendation: Continue present supportive care measures including bronchodilators, antibiotics, diuretics, discontinue Solu-Medrol. Transfer to a regular medical floor. We'll continue to follow. Long-term Prognosis is definitely poor and guarded. We'll continue to follow. Time with Patient: Less than 30
[2020-09-11 15:34] LABS: Ferritin 255.2 ng/mL (22.0-322.0)
[2020-09-11 16:15] LABS: % Iron Saturation 8.1 (15.00-50.00)
[2020-09-11 17:35] LABS: Calcium 7.9 mg/dL (8.4-10.2); Potassium 4.5 mmol/L (3.5-5.1)
[2020-09-11] MEDS: traZODone HCL 50 MG TAB PO SCH (21:21)
[2020-09-12] MEDS: PANTOPRAZOLE 40 MG TABLET PO SCH ×2 (07:04→17:18)
[2020-09-12] MEDS: carvediloL 12.5 MG TAB PO SCH ×2 (07:04→17:18)
[2020-09-12 07:52] LABS: Anisocytosis Slight; HGB 8.2 gm/dL (13.0-17.5); Hypochromasia Moderate; MCH 26.6 pg (25.0-35.0); MCHC 31.7 g/dL (31.0-37.0); Mean Platelet Volume 9.9; Microcytosis Slight; Platelet Count 120 k/uL (150-450); Poikilocytosis Slight; RDW 19.7 % (11.5-15.5); WBC 6.4 k/uL (3.8-10.6)
[2020-09-12] MEDS: IPRATROPIUM-ALBUTEROL 3 ML NEB INHALATION SCH ×4 (07:59→21:42)
[2020-09-12] MEDS: BUDESONIDE 1 MG/2 ML NEBU INHALATION SCH ×2 (07:59→21:42)
[2020-09-12 08:25] LABS: Calcium 7.8 mg/dL (8.4-10.2); Magnesium 2.1 mg/dL (1.6-2.3); Potassium 4.3 mmol/L (3.5-5.1)
[2020-09-12] MEDS: amLODIPine 5 MG TAB PO SCH ×2 (08:50→22:23)
[2020-09-12] MEDS: FUROSEMIDE 10 MG/ML 4 ML VIAL IV SCH (08:53)
[2020-09-12] MEDS: HEPARIN SODIUM,PORCINE 5,000 UNIT/ML 1 ML VIAL SQ SCH ×2 (08:54→22:23)
[2020-09-12] MEDS: guaiFENesin 600 MG TABLET.ER PO SCH ×2 (08:54→22:23)
[2020-09-12] MEDS: ASPIRIN 81 MG PO SCH (08:54)
[2020-09-12] MEDS: ESCITALOPRAM 10 MG TAB PO SCH (08:54)
[2020-09-12] MEDS: SODIUM BICARBONATE TAB 650 MG TAB PO SCH ×2 (08:54→22:23)
[2020-09-12] MEDS: hydrALAZINE HCL 50 MG TAB PO SCH ×4 (08:54→22:23)
[2020-09-12] MEDS: AZITHROMYCIN 250 MG TAB PO SCH (08:55)
[2020-09-12] MEDS: metOLazone 5 MG TAB PO SCH (08:55)
--- NOTE | 2020-09-12 10:50 | P.PN ---
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 Patient currently admitted under our services for acute on chronic respiratory failure with hypoxia after being transferred from [facility] for pneumonia, acute kidney injury, pleural effusion, and lung nodules. Per transfer documentation, patient underwent a CT at [facility] which showed 2 small nodular opacities in the right lung and a moderate sized right-sided pleural effusion accompanied by right basilar atelectasis. Upon arrival to our facility repeat chest x-ray was obtained revealing increasing interstitial and patchy airspace disease with small right-sided pleural effusions. Pro-calcitonin was elevated at 6.87 and patient was placed on antibiotics: Azithromycin and Rocephin. Pro- BNP was significantly elevated at 34,700 and patient was placed on Aldactone by pulmonology. Echocardiogram was completed revealing moderate concentric left ventricular hypertrophy with a preserved EF between 45 and 50% and mild pulmo nary hypertension. Covid 19 PCR was negative. On , patient's respiratory effort increased and he was transferred to ICU for closer monitoring. At this time a repeat x-ray was completed revealing persistent areas of coarse infiltrates throughout the perihilar and basilar regions without significant change. Patient's oxygen demand has increased from 2 L O2 to 3 L O2 via nasal cannula. He was then started on steroids at this and to continue scheduled DuoNeb's along with PRN albuterol nebulizer treatments for increased shortness of breath and/or wheezing. Initially patient presented with leukocytosis with WBC count of 16.90 this has been improving daily and this morning, WBCs down to 6.3. On 09/10/20 a repeat follow-up chest x-ray was completed this morning showing mild cardiomegaly with interstitial densities and patchy right greater than left airspace disease along with small layering effusions, concerns for CHF with patchy pulmonary edema. 09/10/20: Patient seen and fully evaluated at the bedside. Patient sitting up in bed, respirations even, regular, and unlabored on 3 L O2 via nasal cannula. SpO2 94%. Patient reports that he feels "much better". He reports that he continues to cough, but no longer coughing up blood-tinged sputum. He remains afebrile and denies having any chills, diaphoresis, headache, chest pain, palpi tations, abdominal pain, nausea, vomiting, or experiencing any numbness/tingling/weakness/swelling in his extremities.WBCs continue to improve with morning lab showing WBC count of 6.3. Hemoglobin stable at 8.9. Platelets stable at 128. CO2 now down to 14 from previous 20.2, patients home sodium bicarb tablets were resumed yesterday afternoon. A repeat follow-up chest x-ray was completed this morning showing mild cardiomegaly with interstitial densities and patchy right greater than left airspace disease along with small layering effusions, concerns for CHF with patchy pulmonary edema. Patient does have some noted confusion when compared to his baseline mental status yesterday, confusion likely secondary to initiation of steroids as patient has had similar reaction in the past. Steroids essential at this time secondary to acute respiratory failure, patient's respiratory status has clinically shown significant improvement since initiation of steroids. 09/11/20: Patient was seen and fully evaluated at bedside this morning. RN reports patient had multiple episodes of increased confusion throughout the night but has been redirectable and currently doing much better. Upon physical assessment, patient was resting in bed and was alert and oriented to person, place, and situation. Patient states that he did not know why he was confused earlier in the morning, but reports he feels better now. Reassured patient that episodic confusion is likely a side effect of the steroids we are giving him to help him with his breathing. Patient does report that his breathing feels better and he doesn't seem to be coughing as much. However, he was noted to have tachypneic respirations at 24 breaths per minute with an increased respiratory effort and noted conversational dyspnea. He remains on 3 L O2 unchanged from yesterday and pulse ox stable at 94%. Patient denies having any headache, lightheadedness, dizziness, changes in his vision or hearing, chest pain or palpitations, nausea, or experiencing any numbness/tingling/weakness in extremities. His WBC count remains stable at 6.2. Hemoglobin remains stable at 8.7. Potassium was found to be elevated at 5.5 likely secondary to administration of Aldactone with patient stage IV CKD, Aldactone discontinued at this time in order placed for IV Lasix. CO2 remains low despite day 3 since resuming sodium bicarb tablets. Order placed to nephrology at this time secondary to patient stage IV CKD with chronic metabolic acidosis and hyperkalemia. 09/12/20: Patient was seen and fully evaluated at the bedside this morning. He has shown significant improvement over the past 2 days with respiratory status. His respirations were even, regular, and unlabored lungs slightly diminished at bases, but today there was no wheezing noted. Patient remains on 3 L O2 via nasal cannula and was not previously on oxygen at home prior to arrival. We will attempt at weaning this down as patient tolerates. Patient received his last dose of Solu-Medrol yesterday and is continuing with his Pulmicort and sami eduled nebulizer treatments and doing well. He reports that his shortness of breath continues to improve and his cough is almost gone, but both return/exacerbated with minimal exertion. Physical exam: General: non toxic, no distress, appears at stated age, very thin build. Derm: warm, dry Head: atraumatic, normocephalic, symmetric Eyes: EOMI, no lid lag, anicteric sclera Mouth: no lip lesion, mucus membranes moist, missing teeth Cardiovascular: Regular rate, regular rhythm. No murmur, positive posterior tibial pulses bilaterally, Cap refill < 2 seconds Lungs: Respirations even, regular, and tachypneic at 24 breths per minute on 3 L O2 with SpO2 of 94%. Pt has increased pulmonary effort and noted conversational dyspnea, but not in acute respiratory distress at this time. Lungs continue to have diffuse bilateral expiratory wheezes worse throughout all lung matt. Barrel Chest. Abdominal: soft, nontender to palpation, no guarding, no appreciable organomegaly Ext: no gross muscle atrophy, no edema, no contractures Neuro: Speech clear, GCS 15. Pt reportedly had episodes of confusion overnight and early this morning currently he is alert to person, place and situation. No focal neuro deficits. Psych: Alert, oriented to person, place, and situation. Pleasant and appropriate affect. Assessment and Plan of care: Acute on chronic respiratory failure with hypoxia secondary to a combination of COPD exacerbation, acute on chronic systolic CHF exacerbation, right lung pneumonia, and right lung nodules with right pleural effusion concerning for possible underlying malignancy -Pulmonology following, appreciate further recommendations. -Continue Oxygenation and titrate as needed to maintain SPO2 equal to or greater than 92%. Patient currently on 3 L O2 via nasal cannula. We will wean off oxygen when able. -Telemetry monitoring. -Continuous Pulse-oximetry -Incentive Spirometry, encourage use 10-15 times hourly while awake. -Steroid treatment with Solu-Medrol completed yesterday, patient to continue with Pulmicort and scheduled nebulizer treatments. -PRN Albuterol nebulizers as needed for SOB and/or wheezing -Continuation of Antibiotics: Azithromycin and Rocephin (day 6 of antibiotics), we will discontinue after 7 day course. -Leukocytosis resolved, WBC 6.4. -Continue lasix 40 mg daily. Chronic metabolic acidosis secondary to stage IV CKD, stable -Patient was given 2 A of sodium bicarb and daily dose of sodium bicarbonate tablets was increased to 1300 mg BID as recommended by tag clerk and has resulted in CO2 returning to normal level of 23. Acute encephalopathy secondary to administration of steroids, resolved after completion of treatment Right hip pain likely secondary to synovitis -No acute findings on x-ray of right hip or femur. -MRI right hip and femur showed no evidence of fracture or bone distraction to suggest metastatic disease, however did show increased fluid around the proximal femur that could relate to some synovitis. -Symptomatic treatment and pain management. -Fall precautions and patient to be provided with assistance as needed. -PT/OT consult placed Thrombocytopenia, stable -Platelet count of 120,000. Hypertension, improving -Monitor vital signs and continue daily medication management with Norvasc 5 mg twice daily and carvedilol 12.5 mg daily. Chronic microcytic microchromic anemia, stable -Patient with a history of chronic microcytic microchromic anemia with baseline hemoglobin of 9.0. -Hemoglobin currently 8.2. CODE STATUS: Full code DVT prophylaxis: heparin Discussed with: Patient, RN, and pt's son Lg Patel. Anticipated discharge date: [address]: Home with homecare. Pt lives at home with his son and daughter in law. Pt's son reports that someone will be there and available to assist him 24 whenever needed. A total of 45 minutes was spent on the care of this complex patient more than 50% of the time was spent in counseling and care coordination. Objective - Vital Signs Vital signs: Vital Signs Temp 97.4 F L 02/20/21 08:50 Pulse 89 09/12/20 08:50 Resp 22 09/12/20 08:50 BP 144/81 09/12/20 08:50 Pulse Ox 95 09/12/20 08:50 Intake & Output 09/11/20 09/12/20 09/12/20 18:59 06:59 18:59 Intake Total 340 240 Output Total 575 1300 400 Balance -235 -1300 -160 Weight 56.8 kg 53.9 kg Intake: IV 100 Sodium Chloride 0.9% 1, 100 000 ml @ 50 mls/hr IV . Q20H [facility] Rx#:[id number] Oral 240 240 Output: Urine 575 1300 400 Other: Voiding Method Urinal Urinal Urinal # Voids 1 # Bowel Movements 1 - Labs CBC & Chem 7: 09/12/20 07:40 09/12/20 07:40 Labs: Abnormal Lab Results - Last 24 Hours (Table) 09/11/20 09/11/20 09/12/20 Range/Units 05:35 17:06 07:40 RBC 3.10 L (4.30-5.90) m/uL Hgb 8.2 L (13.0-17.5) gm/dL Hct 26.0 L (39.0-53.0) % RDW 19.7 H (11.5-15.5) % Plt Count 120 L (150-450) k/uL Chloride 109 H (98-107) mmol/L Carbon Dioxide 21 L (22-30) mmol/L BUN 78 H (9-20) mg/dL Creatinine 2.93 H (0.66-1.25) mg/dL Glucose 110 H (74-99) mg/dL Calcium 7.9 L (8.4-10.2) mg/dL Iron 17 L (65-175) ug/dL TIBC 210 L (228-460) ug/dL % Saturation 8.10 L (15.00-50.00) 09/12/20 Range/Units 07:40 RBC (4.30-5.90) m/uL Hgb (13.0-17.5) gm/dL Hct (39.0-53.0) % RDW (11.5-15.5) % Plt Count (150-450) k/uL Chloride 109 H (98-107) mmol/L Carbon Dioxide (22-30) mmol/L BUN 79 H (9-20) mg/dL Creatinine 2.98 H (0.66-1.25) mg/dL Glucose (74-99) mg/dL Calcium 7.8 L (8.4-10.2) mg/dL Iron (65-175) ug/dL TIBC (228-460) ug/dL % Saturation (15.00-50.00) <Alesha Montelongo - Last Filed: 09/12/20 13:52> Objective - Vital Signs Vital signs: Vital Signs Temp 97.4 F L 09/12/20 12:00 Pulse 78 09/12/20 12:00 Resp 20 09/12/20 12:00 BP 144/95 09/12/20 12:00 Pulse Ox 93 L 09/12/20 12:00 Intake & Output 09/11/20 09/12/20 09/12/20 18:59 06:59 18:59 Intake Total 340 240 Output Total 575 1300 950 Balance -235 -1300 -710 Weight 56.8 kg 53.9 kg Intake: IV 100 Sodium Chloride 0.9% 1, 100 000 ml @ 50 mls/hr IV . Q20H [facility] Rx#:[id number] Oral 240 240 Output: Urine 575 1300 950 Other: Voiding Method Urinal Urinal Urinal # Voids 1 # Bowel Movements 1 - Labs CBC & Chem 7: 09/12/20 07:40 09/12/20 07:40 Labs: Abnormal Lab Results - Last 24 Hours (Table) 09/11/20 09/11/20 09/12/20 Range/Units 05:35 17:06 07:40 RBC 3.10 L (4.30-5.90) m/uL Hgb 8.2 L (13.0-17.5) gm/dL Hct 26.0 L (39.0-53.0) % RDW 19.7 H (11.5-15.5) % Plt Count 120 L (150-450) k/uL Chloride 109 H (98-107) mmol/L Carbon Dioxide 21 L (22-30) mmol/L BUN 78 H (9-20) mg/dL Creatinine 2.93 H (0.66-1.25) mg/dL Glucose 110 H (74-99) mg/dL Calcium 7.9 L (8.4-10.2) mg/dL Iron 17 L (65-175) ug/dL TIBC 210 L (228-460) ug/dL % Saturation 8.10 L (15.00-50.00) 09/12/20 Range/Units 07:40 RBC (4.30-5.90) m/uL Hgb (13.0-17.5) gm/dL Hct (39.0-53.0) % RDW (11.5-15.5) % Plt Count (150-450) k/uL Chloride 109 H (98-107) mmol/L Carbon Dioxide (22-30) mmol/L BUN 79 H (9-20) mg/dL Creatinine 2.98 H (0.66-1.25) mg/dL Glucose (74-99) mg/dL Calcium 7.8 L (8.4-10.2) mg/dL Iron (65-175) ug/dL TIBC (228-460) ug/dL % Saturation (15.00-50.00) Assessment and Plan Assessment: Patient seen and examined independently. Patient was also seen by Geovani Unger NP and case was discussed. I am in agreement with subjective, physical exam, assessment and plan as written above and amended below. He wants to go home, has not been walking yet, states that breathing and anxiety is better. General: non toxic, no distress, appears at stated age Derm: warm, dry Head: atraumatic, normocephalic, symmetric Eyes: EOMI, no lid lag, anicteric sclera Mouth: no lip lesion, mucus membranes moist Cardiovascular: S1S2 reg, no murmur, positive posterior tibial pulse bilateral, Lungs: Expiratory wheeze bilateral bases, no rhonchi, no rales , no accessory muscle use, 3 word conversational dyspnea, Barrel chest Ext: no gross muscle atrophy, no edema, no contractures Neuro: CN II-XI grossly intact, no focal neuro deficits Psych: Alert, oriented, appropriate affect Patient has only been to bedside commode. D/W patient that therapy is worried about his strength. Nursing will get up to chair with meals[facility] if strong enough.
[2020-09-12] MEDS: FLUTICASONE 50MCG/SPRAY NASAL 16GM EA NOSTRIL SCH (12:07)
[2020-09-12] MEDS ORDERED: FUROSEMIDE 40 MG TAB PO STA (13:07)
--- NOTE | 2020-09-12 13:44 | P.PN ---
Subjective Progress Note Date: 09/12/20 Principal diagnosis: Interstitial lung disease with underlying community-acquired pneumonia, and acute diastolic congestive heart failure, and pleural effusion, and acute exacerbation of COPD. 80-year-old white male patient with past medical history of COPD, current smoker, previous history of CVA/TIA, hyperlipidemia, hypertension, history of myocardial infarction, chronic kidney disease, unspecified, coronary artery disease with stenting, who was transferred from [facility] for pneumonia, acute kidney injury, pleural effusion, and lung nodules. Patient presented to the [facility] for shortness of breath, and right hip pain. Patient was having difficulty walking on his right leg. He reports history of a fall about a week ago however his hip did not start hurting until 2 days ago. He underwent evaluation at the [facility] and CT of the chest abdomen and pelvis. CT chest showed 2 small nodular opacities in the right lung . Previously seen on the CT chest from March 2020, moderate- sized right-sided pleural effusion and right basilar atelectasis. Patient tested negative on his rapid COVID 19 past. X-ray of the pelvis and the right hip were obtained, showing no acute abnormality of the pelvis and right hip. Chest x-ray was obtained at the [facility] showing increasing interstitial and patchy airspace disease, small pleural effusions seen on the lateral view. Pro-calcitonin level came back elevated at 6.87, suggesting possibility of bacterial infection, and proBNP came back at 34,700 increased possibility of acute exacerbation of CHF. Echocardiogram showed EF of 45-50%, moderate LVH, mild TR, mild pulmonary hypertension with PA systolic of 42 mmHg. Patient's current hematocrit of oxygen pulse ox of 95%, has been afebrile, hemodynamically stable, he is short of breath with exertion, he is coughing and bringing up some blood-tinged sputum. His had no fever or chills, COVID 19 PCR was negative. He was started on antibiotics of azithromycin and Rocephin, and we were consulted for possibility of right thoracentesis for diagnostic purposes to rule out malignant process. Chest ultrasound revealed 8.1 cm plural effusion pocket on the right, however after reviewing the ultrasound films. Lung tissue in the plural effusion, and consulted interventional radiology for ultrasound-guided right thoracentesis Reevaluated today on 09/09/2020, upon entering the room, the patient was noted to be in moderate respiratory distress, coughing and wheezing continuously. Patient could not have thoracentesis done by interventional radiology because he couldn't be placed in the proper position, and apparently would not hold still for the thoracentesis. Not to mention the patient seems to be worsening today with worsening cough wheezing and shortness of breath. Chest x-ray shows evidence of interstitial lung disease, right upper lobe infiltrate, and suspect some component of interstitial edema. Patient has an ejection fraction of 45%, and he has mild pulmonary hypertension. Remains on antibiotics in the form of Rocephin and Zithromax, and today I recommended giving the patient more updrafts, I recommended transferring the patient to the ICU, and I will go ahead and give the patient Decadron for his profound wheezing and profound shortness of breath. Apparently his CODE STATUS was changed to DO NOT RESUSCITATE CODE STATUS. But I believe the patient will likely benefit from transfer to the ICU mostly for a bit more aggressive management of his cough and wheezing. I will a lso give the patient diuretics in the form of Aldactone since the patient has severe ALLERGY to sulfa/Lasix. Patient is supposedly ALLERGIC to prednisone, but I will go ahead and give him Decadron otherwise his wheezing could be difficult to control. Patient is clearly in moderate respiratory distress WBC count today is 10.87 hemoglobin is 8.8. Electrolytes are normal BUN is 74 creatinine [place] [address] Patient was reevaluated today while in the ICU on 09/10/19, patient was young sferred yesterday to the ICU, and I have recommended Decadron, patient also received methylprednisolone, he has received Lasix and Zaroxolyn and updrafts in the form of DuoNeb, remains on Rocephin and Zithromax, this morning he seems to be much more comfortable, in no distress, however his blood pressure remains high, and I recommended increasing Norvasc to 5 mg twice a day and Coreg instead of 6.25 will increase it to 12.5 mg twice a day. We will continue Solu-Medrol, and discontinue Decadron, patient will remain on diuretics as ordered. Chest x- ray continues to show worsening interstitial edema, and I suspect a component of interstitial lung disease. Right upper lobe pneumonia is also not entirely ruled out. Patient is improved, but remains marginal, and his blood pressure remains high. CBC is relatively normal. Electrolytes are normal except for low bicarb of 14, patient does have acute on chronic kidney injury, BUN is 67 and creatinine is 2.89. Echocardiogram did show evidence of mild LV dysfunction and ejection fraction of 45% and he does have mild pulmonary hypertension based on the echo report Patient was reevaluated today on 09/11/2019, patient remains in the ICU, feeling much better today compared to the last couple of days. 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 Hence I will discontinue methylprednisolone, and will not use any steroids however if needed to use steroids, with his Decadron only. Patient is responding well to diuretics, however his Aldactone was dis continued mostly because of high potassium. He remains on Lasix at 40 mg IV push once daily. Chest x-ray is showing improvement but nonetheless continues to show some fluid overload. And underlying infiltrate is not entirely ruled out in the right upper lobe. His pulmonary status is significantly improved over the last 2 days, and I will plan to transfer the patient out of the ICU to a regular medical floor. CBC today is relatively normal except for hemoglobin of 8.7 electrolytes showed elevated potassium of 5.5 hence no further Aldactone to be given. BUN is 74 and creatinine is down to 2.87, improving. In spite of diuretics. The patient is seen today 09/12/2020 in follow-up on the selective care unit. He is currently resting quite comfortably in bed. Awake and alert in no acute distress. Maintaining O2 saturations in the 90s on 3 L/m per nasal cannula. Denies any worsening shortness of breath, cough or congestion. He has some left-sided hip discomfort. Sputum culture revealed no growth. White count 6.4. Hemoglobin 8.2. Platelet count 120,000. Sodium 140. Potassium 4.3. Creatinine remains stable at 2.9. He is off steroids. Continued on ceftriaxone and azithromycin. Continued on bronchodilators. Objective - Vital Signs Vital signs: Vital Signs Temp 97.4 F L 09/12/20 12:00 Pulse 78 09/12/20 12:00 Resp 20 09/12/20 12:00 BP 144/95 09/12/20 12:00 Pulse Ox 93 L 09/12/20 12:00 Intake & Output 09/11/20 09/12/20 09/12/20 18:59 06:59 18:59 Intake Total 340 240 Output Total 575 1300 950 Balance -235 1300 -710 Weight 56.8 kg 53.9 kg Intake: IV 100 Sodium Chloride 0.9% 1, 100 000 ml @ 50 mls/hr IV . Q20H [facility] Rx#:[id number] Oral 240 240 Output: Urine 575 1300 950 Other: Voiding Method Urinal Urinal Urinal # Voids 1 # Bowel Movements 1 - Exam GENERAL EXAM: Alert, very pleasant 80-year-old gentleman, frail, cachectic, on 3 L nasal cannula, comfortable in no apparent distress. HEAD: Normocephalic. EYES: Normal reaction of pupils, equal size. NOSE: Clear with pink turbinates. THROAT: No erythema or exudates. NECK: No masses, no JVD. CHEST: No chest wall deformity. LUNGS: Equal air entry with bilateral scattered rhonchi.. CVS: S1 and S2 normal with no audible murmur, regular rhythm. ABDOMEN: No hepatosplenomegaly, normal bowel sounds, no guarding or rigidity. SPINE: No scoliosis or deformity SKIN: No rashes CENTRAL NERVOUS SYSTEM: No focal deficits, tone is normal in all 4 extremities. EXTREMITIES: There is no peripheral edema. No clubbing, no cyanosis. Peripheral pulses are intact. - Labs CBC & Chem 7: 09/12/20 07:40 09/12/20 07:40 Labs: Abnormal Lab Results - Last 24 Hours (Table) 09/11/20 09/11/20 09/12/20 Range/Units 05:35 17:06 07:40 RBC 3.10 L (4.30-5.90) m/uL Hgb 8.2 L (13.0-17.5) gm/dL Hct 26.0 L (39.0-53.0) % RDW 19.7 H (11.5-15.5) % Plt Count 120 L (150-450) k/uL Chloride 109 H (98-107) mmol/L Carbon Dioxide 21 L (22-30) mmol/L BUN 78 H (9-20) mg/dL Creatinine 2.93 H (0.66-1.25) mg/dL Glucose 110 H (74-99) mg/dL Calcium 7.9 L (8.4-10.2) mg/dL Iron 17 L (65-175) ug/dL TIBC 210 L (228-460) ug/dL % Saturation 8.10 L (15.00-50.00) 09/12/20 Range/Units 07:40 RBC (4.30-5.90) m/uL Hgb (13.0-17.5) gm/dL Hct (39.0-53.0) % RDW (11.5-15.5) % Plt Count (150-450) k/uL Chloride 109 H (98-107) mmol/L Carbon Dioxide (22-30) mmol/L BUN 79 H (9-20) mg/dL Creatinine 2.98 H (0.66-1.25) mg/dL Glucose (74-99) mg/dL Calcium 7.8 L (8.4-10.2) mg/dL Iron (65-175) ug/dL TIBC (228-460) ug/dL % Saturation (15.00-50.00) Assessment and Plan Assessment: 1 Acute on chronic hypoxic respiratory failure, multifactorial 2 Acute exacerbation of COPD 3 Acute exacerbation of chronic systolic congestive heart failure 4 Interstitial lung disease/pulmonary fibrosis 5 Right upper lobe pneumonia, community-acquired, sputum culture reveals no growth 6 Multiple nonspecific pulmonary nodules, etiology is not clear. Not a good candidate for invasive intervention. 7 Chronic systolic congestive heart failure 8 Small right-sided pleural effusion seems to have resolved based on the chest x-ray findings, no need for thoracentesis 9 Chronic kidney disease 10 Coronary artery disease and previous MA 11 Hypertension 12 History of CVA/TIA 13 Suspect acute metabolic encephalopathy strongly suspect his mental status change and encephalopathy to be secondary to steroid/methylprednisolone, improved. Plan: The patient was seen and evaluated by Dr. Mcrae He is improved from the pulmonary standpoint More awake and alert, off steroids Continue the current treatment plan Repeat chest x-ray in a.m. We will continue to follow I, the cosigning physician, performed a history & physical examination of the patient. Lungs sounds with bilateral scattered rhonchi. Maintaining good O2 saturations in the 90s on 3 L/m per nasal cannula. I discussed the assessment and plan of care with my nurse practitioner, Cat Troy. I attest to the above note as dictated by her.
--- NOTE | 2020-09-12 15:21 | PN ---
PROGRESS NOTE Patient is seen for followup for acute kidney injury. Patient's renal function has been fairly stable with creatinine staying at about 2.8-2.9 mg/dL. Currently patient is not on any IV fluids. He is actually being diuresed, maintained on daily Lasix and Zaroxolyn. EXAMINATION: Today patient is comfortable. Blood pressure this morning was 144/81, heart rate 79 per minute, patient is afebrile. Examination of the heart S1, S2. Examination of lungs, decreased breath sounds at the bases. Abdomen is soft. Examination of lower extremities shows no significant edema. LIBRARIAN [employer]IST exam grossly intact. LAB: Show sodium 140, potassium 4.3, chloride 109, BUN 79, creatinine 2.98, hemoglobin 8.2 g/dL. ASSESSMENT: 1. Acute kidney injury on top of chronic kidney disease. Creatinine staying at 2.8- 2.9 mg/dL which is not far from his baseline. Maintained on small dose of diuretics, which we can continue. 2. Anemia with significant iron deficiency noted, will start patient on IV iron. 3. Hypertension, currently controlled. 4. Acute exacerbation of chronic obstructive pulmonary disease. 5. Congestive heart failure, acute on top of chronic, mostly systolic, currently improved. 6. Right upper lobe pneumonia, maintained on antibiotics. PLAN: Continue with gentle diuresis. Renal function is at baseline. Add IV iron. Repeat labs in a.m. MMODL / IJN: [id number] /
[2020-09-12] MEDS: traZODone HCL 50 MG TAB PO SCH (22:23)
[2020-09-13] MEDS: PANTOPRAZOLE 40 MG TABLET PO SCH ×2 (06:37→17:25)
[2020-09-13] MEDS: carvediloL 12.5 MG TAB PO SCH ×2 (06:37→17:25)
--- NOTE | 2020-09-13 07:12 | XR ---
EXAMINATION TYPE: XR chest 1V portable DATE OF EXAM: 09/13/2020 HISTORY: Shortness of breath. COMPARISON: 09/11/2020 TECHNIQUE: Single view of the chest is submitted. FINDINGS: Demonstrated are scattered senescent parenchymal change. Hyperinflation compatible with COPD. Scattered interstitial and alveolar infiltrates persist. The heart is stable. Hilar and mediastinal structures are within normal limits. Degenerative changes are seen of the dorsal spine. IMPRESSION: 1. Stable chest.
[2020-09-13] MEDS: IPRATROPIUM-ALBUTEROL 3 ML NEB INHALATION SCH ×4 (08:00→19:22)
[2020-09-13] MEDS: BUDESONIDE 1 MG/2 ML NEBU INHALATION SCH ×2 (08:00→19:21)
[2020-09-13] MEDS: ASPIRIN 81 MG PO SCH (08:04)
[2020-09-13] MEDS: hydrALAZINE HCL 50 MG TAB PO SCH ×4 (08:04→21:08)
[2020-09-13] MEDS: ESCITALOPRAM 10 MG TAB PO SCH (08:04)
[2020-09-13] MEDS: guaiFENesin 600 MG TABLET.ER PO SCH ×2 (08:04→21:07)
[2020-09-13] MEDS: SODIUM BICARBONATE TAB 650 MG TAB PO SCH ×2 (08:04→21:08)
[2020-09-13] MEDS: metOLazone 5 MG TAB PO SCH (08:05)
[2020-09-13] MEDS: FLUTICASONE 50MCG/SPRAY NASAL 16GM EA NOSTRIL SCH (08:05)
[2020-09-13] MEDS: HEPARIN SODIUM,PORCINE 5,000 UNIT/ML 1 ML VIAL SQ SCH ×2 (08:05→21:08)
[2020-09-13] MEDS: AZITHROMYCIN 250 MG TAB PO SCH (08:05)
[2020-09-13] MEDS: amLODIPine 5 MG TAB PO SCH ×2 (08:05→21:08)
--- NOTE | 2020-09-13 10:58 | P.PN ---
Subjective Progress Note Date: 09/13/20 Interstitial lung disease with underlying community-acquired pneumonia, and acu te diastolic congestive heart failure, and pleural effusion, and acute exacerbation of COPD. 80-year-old white male patient with past medical history of COPD, current smoker, previous history of CVA/TIA, hyperlipidemia, hypertension, history of myocardial infarction, chronic kidney disease, unspecified, coronary artery disease with stenting, who was transferred from [facility] for pneu monia, acute kidney injury, pleural effusion, and lung nodules. Patient presented to the [facility] for shortness of breath, and right hip pain. Patient was having difficulty walking on his right leg. He reports history of a fall about a week ago however his hip did not start hurting until 2 days ago. He underwent evaluation at the [facility] and CT of the chest abdomen and pelvis. CT chest showed 2 small nodular opacities in the right lung . Previously seen on the CT chest from March 2020, moderate- sized right-sided pleural effusion and right basilar atelectasis. Patient tested negative on his rapid COVID 19 past. X-ray of the pelvis and the right hip were obtained, showing no acute abnormality of the pelvis and right hip. Chest x-ray was obtained at the [facility] showing increasing interstitial and patchy airspace disease, small pleural effusions seen on the lateral view. Pro-calcitonin level came back elevated at 6.87, suggesting possibility of bacterial infection, and proBNP came back at 34,700 increased possibility of acute exacerbation of CHF. Echocardiogram showed EF of 45-50%, moderate LVH, mild TR, mild pulmonary hypertension with PA systolic of 42 mmHg. Patient's current hematocrit of oxygen pulse ox of 95%, has been afebrile, hemodynamically stable, he is short of breath with exertion, he is coughing and bringing up some blood-tinged sputum. His had no fever or chills, COVID 19 PCR was negative. He was started on antibiotics of azithromycin and Rocephin, and we were consulted for possibility of right thoracentesis for diagnostic purposes to rule out malignant process. Chest ultrasound revealed 8.1 cm plural effusion pocket on the right, however after reviewing the ultrasound films. Lung tissue in the plural effusion, and consulted interventional radiology for ultrasound-guided right thoracentesis Reevaluated today on 09/09/2020, upon entering the room, the patient was noted to be in moderate respiratory distress, coughing and wheezing continuously. Patient could not have thoracentesis done by interventional radiology because he couldn't be placed in the proper position, and apparently would not hold still for the thoracentesis. Not to mention the patient seems to be worsening today with worsening cough wheezing and shortness of breath. Chest x-ray shows evidence of interstitial lung disease, right upper lobe infiltrate, and suspect some component of interstitial edema. Patient has an ejection fraction of 45%, and he has mild pulmonary hypertension. Remains on antibiotics in the form of Rocephin and Zithromax, and today I recommended giving the patient more updrafts, I recommended transferring the patient to the ICU, and I will go ahead and give the patient Decadron for his profound wheezing and profound shortness of breath. Apparently his CODE STATUS was changed to DO NOT RESUSCITATE CODE STATUS. But I believe the patient will likely benefit from transfer to the ICU mostly for a bit more aggressive management of his cough and wheezing. I will also give the patient diuretics in the form of Aldactone since the patient has severe ALLERGY to sulfa/Lasix. Patient is supposedly ALLERGIC to prednisone, but I will go ahead and give him Decadron otherwise his wheezing could be difficult to control. Patient is clearly in moderate respiratory distress WBC count today is 10.87 hemoglobin is 8.8. Electrolytes are normal BUN is 74 creatinine [place] 3[place] [address] Patient was reevaluated today while in the ICU on 09/10/19, patient was transferred yesterday to the ICU, and I have recommended Decadron, patient also received methylprednisolone, he has received Lasix and Zaroxolyn and updrafts in the form of DuoNeb, remains on Rocephin and Zithromax, this morning he seems to be much more comfortable, in no distress, however his blood pressure remains high, and I recommended increasing Norvasc to 5 mg twice a day and Coreg instead of 6.25 will increase it to 12.5 mg twice a day. We will continue Solu-Medrol, and discontinue Decadron, patient will remain on diuretics as ordered. Chest x- ray continues to show worsening interstitial edema, and I suspect a component of interstitial lung disease. Right upper lobe pneumonia is also not entirely ruled out. Patient is improved, but remains marginal, and his blood pressure remains high. CBC is relatively normal. Electrolytes are normal except for low bicarb of 14, patient does have acute on chronic kidney injury, BUN is 67 and creatinine is 2.89. Echocardiogram did show evidence of mild LV dysfunction and ejection fraction of 45% and he does have mild pulmonary hypertension based on the echo report Patient was reevaluated today on 09/11/2019, patient remains in the ICU, feeling much better today compared to the last couple of days. 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 Hence I will discontinue methylprednisolone, and will not use any steroids however if needed to use steroids, with his Decadron only. Patient is responding well to diuretics, however his Aldactone was discontinued mostly because of high potassium. He remains on Lasix at 40 mg IV push once daily. Chest x-ray is showing improvement but nonetheless continues to show some fluid overload. And underlying infiltrate is not entirely ruled out in the right upper lobe. His pulmonary status is significantly improved over the last 2 days, and I will plan to transfer the patient out of the ICU to a regular medical floor. CBC today is relatively normal except for hemoglobin of 8.7 electrolytes showed elevated potassium of 5.5 hence no further Aldactone to be given. BUN is 74 and creatinine is down to 2.87, improving. In spite of diuretics. The patient is seen today 09/12/2020 in follow-up on the selective care unit. He is currently resting quite comfortably in bed. Awake and alert in no acute distress. Maintaining O2 saturations in the 90s on 3 L/m per nasal cannula. Denies any worsening shortness of breath, cough or congestion. He has some left-sided hip discomfort. Sputum culture revealed no growth. White count 6.4. Hemoglobin 8.2. Platelet count 120,000. Sodium 140. Potassium 4.3. Creatinine remains stable at 2.9. He is off steroids. Continued on ceftriaxone and azithromycin. Continued on bronchodilators. On 09/13/2020 the patient is being seen for a follow-up. His Resting comfortably in bed and currently is on supplemental oxygen. No signs of any respiratory distress for now. He remains and accommodation Rocephin and Zithromax and bronchodilators. He is currently off steroids.A repeat chest x- ray was done and it showed scattered interstitial and alveolar infiltrates bilaterally and scattered senescent parenchymal changes and he does have hyperinflation consistent with COPD. The chest x-ray findings are essentially stable. He is currently on room air oxygen with a pulse of 93%. His white cell count is at 6.4 with a hemoglobin of 8.2. Platelet counts are stable at 120. Creatinine is at 2.9 with a BUN of 79 and his creatinine is also stable. His echocardiogram showed mild LV dysfunction with an ejection fraction 45% and he also has mild pulmonary hypertension. He does have a DO NOT RESUSCITATE CODE STATUS. Objective - Vital Signs Vital signs: Vital Signs Temp 98 F 09/13/20 08:02 Pulse 84 09/13/20 08:21 Resp 18 09/13/20 08:02 BP 129/66 09/13/20 08:02 Pulse Ox 93 L 09/13/20 09:33 Intake & Output 09/12/20 09/13/20 09/13/20 18:59 06:59 18:59 Intake Total 530 240 Output Total 5085 512 4785 Balance -895 -500 -1185 Weight 48.3 kg Intake: IV 50 cefTRIAXone 1 gm In 50 Sodium Chloride 0.9% 50 ml @ 100 mls/hr IVPB Q24HR [facility] Rx#:[id number] Oral 480 240 Output: Urine 9488 408 5448 Other: Voiding Method Urinal Urinal Urinal # Voids 4 # Bowel Movements 1 - Exam GENERAL EXAM: Alert, very pleasant 80-year-old gentleman, frail, cachectic, on on room air oxygen, comfortable in no apparent distress. HEAD: Normocephalic. EYES: Normal reaction of pupils, equal size. NOSE: Clear with pink turbinates. THROAT: No erythema or exudates. NECK: No masses, no JVD. CHEST: No chest wall deformity. LUNGS: Equal air entry with bilateral scattered rhonchi.. CVS: S1 and S2 normal with no audible murmur, regular rhythm. ABDOMEN: No hepatosplenomegaly, normal bowel sounds, no guarding or rigidity. SPINE: No scoliosis or deformity SKIN: No rashes CENTRAL NERVOUS SYSTEM: No focal deficits, tone is normal in all 4 extremities. EXTREMITIES: There is no peripheral edema. No clubbing, no cyanosis. Peripheral pulses are intact. - Labs CBC & Chem 7: 09/12/20 07:40 09/12/20 07:40 Assessment and Plan Plan: 1 Acute on chronic hypoxic respiratory failure, multifactorial my improved and the patient is currently on room air oxygen. He was weaned off the oxygen and he is currently on room air with a pulse is 93% 2 Acute exacerbation of COPD, improved 3 Acute exacerbation of chronic systolic congestive heart failure, echocardiogram was noted 4 Interstitial lung disease/pulmonary fibrosis 5 Right upper lobe pneumonia, community-acquired, sputum culture reveals no g rowth 6 Multiple nonspecific pulmonary nodules, etiology is not clear. Not a good candidate for invasive intervention. 7 Chronic systolic congestive heart failure 8 Small right-sided pleural effusion seems to have resolved based on the chest x-ray findings, no need for thoracentesis 9 Chronic kidney disease 10 Coronary artery disease and previous SD 11 Hypertension 12 History of CVA/TIA 13 Suspect acute metabolic encephalopathy strongly suspect his mental status change and encephalopathy to be secondary to steroid/methylprednisolone, improved. Plan: He is improved from the pulmonary standpoint and he is currently on room air oxygen. Continue the current treatment plan Repeat chest x-ray in a.m. was reviewed and this was quite stable We will continue to follow
--- NOTE | 2020-09-13 11:19 | P.PN ---
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 Patient currently admitted under our services for acute on chronic respiratory failure with hypoxia after being transferred from [facility] for pneumonia, acute kidney injury, pleural effusion, and lung nodules. Per transfer documentation, patient underwent a CT at [facility] which showed 2 small nodular opacities in the right lung and a moderate sized right-sided pleural effusion accompanied by right basilar atelectasis. Upon arrival to our facility repeat chest x-ray was obtained revealing increasing interstitial and patchy airspace disease with small right-sided pleural effusions. Pro-calcitonin was elevated at 6.87 and patient was placed on antibiotics: Azithromycin and Rocephin. Pro- BNP was significantly elevated at 34,700 and patient was placed on Aldactone by pulmonology. Echocardiogram was completed revealing moderate concentric left ventricular hypertrophy with a preserved EF between 45 and 50% and mild pulm onary hypertension. Covid 19 PCR was negative. Pt also reporting right hip pain and was found to have synovitis of proximal femur. X-ray right hip and femur showing no acute findings on x-ray of right hip or femur. MRI right hip and femur showed no evidence of fracture or bone distraction to suggest metastatic disease, however did show increased fluid around the proximal femur that could relate to some synovitis. Pt provided with symptomatic treatment and PT/OT. On 09/09/20, patient's respiratory effort increased and he was transferred to ICU for closer monitoring. At this time a repeat x-ray was completed revealing persistent areas of coarse infiltrates throughout the perihilar and basilar regions without significant change. Patient's oxygen demand has increased from 2 L O2 to 3 L O2 via nasal cannula. He was then started on steroids at this and to continue scheduled DuoNeb's along with PRN albuterol nebulizer treatments for increased shortness of breath and/or wheezing. Initially patient presented with leukocytosis with WBC count of 16.90 this has been improving daily and this morning, WBCs down to 6.3. On 09/10/20 a repeat follow-up chest x-ray was completed this morning showing mild cardiomegaly with interstitial densities and patchy right greater than left airspace disease along with small layering effusions, concerns for CHF with patchy pulmonary edema. On 09/11/20 pt began to show improvement and transferred back to general medical unit, IV antibiotics complete after 7 day course on 09/12/20. Pt undergoing evaluation with PT/OT and plan for discharge home tomorrow morning with [facility]. Everything has been set up and arranged. 09/13/20: Patient was seen and fully evaluated at the bedside this morning. He continues to show improvement with his respiratory status and has been weaned off oxygen at rest with O2 sat maintaining at 93%. Today we plan on obtaining an ambulatory pulse ox to determine if oxygen will be needed with ambulation upon discharge. Pt is to be up for all meals and restroom with assistance today. Discussed this with nursing staff. His respirations were even, regular, and unlabored, lungs clear to auscultation with no adventitious lung sounds noted. Pt to receive last dose of antibiotics today and will be complete after a 7 day course. He will continue Pulmicort and scheduled nebulizer treatments. He understands importance of getting up and out of bed today with assistance to prepare him for discharge tomorrow morning. Pt reports that his shortness of breath continues to improve and his cough is almost gone, and that he feels ready to go home and cannot wait. Pt denies any other complaints at this time including chest pain, headache, or lightheadedness. Physical exam: General: non toxic, no distress, appears at stated age, very thin build. Derm: warm, dry Head: atraumatic, normocephalic, symmetric Eyes: EOMI, no lid lag, anicteric sclera Mouth: no lip lesion, mucus membranes moist, missing teeth Cardiovascular: Regular rate, regular rhythm. No murmur, positive posterior tibial pulses bilaterally, Cap refill < 2 seconds Lungs: Respirations even, regular, and unlabored on room air with SPO2 93%. His lungs were clear to auscultation this morning. He has been showing significant improvement. Abdominal: soft, nontender to palpation, no guarding, no appreciable organomegaly Ext: no gross muscle atrophy, no edema, no contractures Neuro: Speech clear, GCS 15. Pt alert and oriented to person, place and situation. No focal neuro deficits. Psych: Alert, oriented to person, place, and situation. Pleasant and appropriate affect. Assessment and Plan of care: Acute on chronic respiratory failure with hypoxia secondary to a combination of COPD exacerbation, acute on chronic systolic CHF exacerbation, right lung pneumonia, and right lung nodules with right pleural effusion concerning for possible underlying malignancy. -Pulmonology following. -Pt successfully weaned off resting O2. We will obtain an ambulatory pulse oximetry today to determine if need for home O2 with ambulation. -Incentive Spirometry, encourage use 10-15 times hourly while awake. -Continue with Pulmicort and scheduled nebulizer treatments. -PRN Albuterol nebulizers as needed for SOB and/or wheezing -Antibiotics discontinued. Patient completed 7 day course. -Patient was transitioned to oral Lasix yesterday. 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 Acute encephalopathy secondary to administration of steroids, resolved after completion of treatment Right hip pain likely secondary to synovitis -No acute findings on x-ray of right hip or femur. -MRI right hip and femur showed no evidence of fracture or bone distraction to suggest metastatic disease, however did show increased fluid around the proximal femur that could relate to some synovitis. -Symptomatic treatment and pain management. -Fall precautions and patient to be provided with assistance as needed. -PT/OT consult placed Thrombocytopenia, stable -Platelet count of 120,000. Hypertension, improving -Monitor vital signs and continue daily medication management with Norvasc 5 mg twice daily and carvedilol 12.5 mg daily. Chronic microcytic microchromic anemia, stable -Patient with a history of chronic microcytic microchromic anemia with baseline hemoglobin of 9.0. -Hemoglobin currently 8.2. CODE STATUS: Full code DVT prophylaxis: heparin Discussed with: Patient, RN, and pt's son Lg Patel. Anticipated discharge date: tommorow a.m. Anticipated discharge place: Home with homecare. Pt lives at home with his son and daughter in law. Pt's son reports that someone will be there and available to assist him 13/02 whenever needed. A total of 45 minutes was spent on the care of this complex patient more than 50% of the time was spent in counseling and care coordination. Objective - Vital Signs Vital signs: Vital Signs Temp 98 F 09/13/20 08:02 Pulse 84 09/13/20 08:21 Resp 18 09/13/20 08:02 BP 129/66 09/13/20 08:02 Pulse Ox 93 L 09/13/20 09:33 Intake & Output 09/12/20 09/13/20 09/13/20 18:59 06:59 18:59 Intake Total 530 240 Output Total 2114 048 2150 Balance -895 500 -1185 Weight 48.3 kg Intake: IV 50 cefTRIAXone 1 gm In 50 Sodium Chloride 0.9% 50 ml @ 100 mls/hr IVPB Q24HR CARA Rx#:[id number] Oral 480 240 Output: Urine 4877 368 1002 Other: Voiding Method Urinal Urinal Urinal # Voids 4 # Bowel Movements 1 - Labs CBC & Chem 7: 09/12/20 07:40 09/12/20 07:40 <Alesha Montelongo - Last Filed: 09/13/20 14:41> Objective - Vital Signs Vital signs: Vital Signs Temp 97.9 F 09/13/20 12:00 Pulse 72 09/13/20 12:00 Resp 20 09/13/20 12:00 BP 133/78 09/13/20 12:00 Pulse Ox 91 L 09/13/20 12:00 Intake & Output 09/12/20 09/13/20 09/13/20 18:59 06:59 18:59 Intake Total 530 360 Output Total 6232 352 4874 Balance -895 -500 -1465 Weight 48.3 kg Intake: IV 50 cefTRIAXone 1 gm In 50 Sodium Chloride 0.9% 50 ml @ 100 mls/hr IVPB Q24HR CARA Rx#:[id number] Oral 480 360 Output: Urine 1836 146 8076 Other: Voiding Method Urinal Urinal Urinal # Voids 2 # Bowel Movements 1 - Labs CBC & Chem 7: 09/12/20 07:40 09/12/20 07:40 Assessment and Plan Assessment: Patient seen and examined independently. Patient was also seen by Geovani Unger NP and case was discussed. I am in agreement with subjective, physical exam, assessment and plan as written above and amended below. Patient seen and examined at bedside. He reports his breathing is much better. He is feeling well and wants to go home. He reports that he is aware that he is weak and he will continue to increase his exercise and remain motivated. General: non toxic, no distress, appears at stated age Derm: multiple areas of bruising in various stages of healing Head: atraumatic, normocephalic, symmetric Eyes: EOMI, no lid lag, anicteric sclera Mouth: no lip lesion, mucus membranes moist Cardiovascular: S1S2 reg, no murmur, positive posterior tibial pulse bilateral, Lungs: Course bs bilateral, no rhonchi, no rales , no accessory muscle use, no conversational dyspnea, barrel chested Abdominal: soft, nontender to palpation, no guarding, no appreciable organomegaly Ext: no gross muscle atrophy, no edema, no contractures Neuro: CN II-XI grossly intact, no focal neuro deficits Psych: Alert, oriented, appropriate affect NELI, resolved
--- NOTE | 2020-09-13 13:18 | PN ---
PROGRESS NOTE The patient is seen for followup for acute kidney injury. The patient's creatinine is stable, staying at about 2.9 mg/dL. He was maintained on IV Lasix which was discontinued yesterday. He is also on Zaroxolyn 5 mg daily. The patient has been voiding on his own. He has had decrease in his weight. He denies any chest pains or shortness of breath. PHYSICAL EXAMINATION: On examination today, blood pressure this morning was 129/66, heart rate 72 per minute. He is afebrile. Examination of the heart S1, S2. Examination of the lungs, bilateral breath sounds are heard. ABDOMEN: Soft, nontender. Exam of lower extremities shows no significant edema. [employer] exam grossly intact. LAB: Show sodium 140, potassium 4.3, chloride 109, BUN 79, serum creatinine 2.98, hemoglobin 8.2 g/dL. ASSESSMENT: 1. Acute kidney injury acute tubular necrosis, stable with serum creatinine staying at 2.9 mg/dL. The patient was being diuresed. Lasix was discontinued yesterday. He remains on Zaroxolyn. Chest x-ray from today shows no significant pulmonary vascular congestion although scattered interstitial and alveolar infiltrates persist. 2. Chronic kidney disease with previous creatinine at about 2.8-2.[address] back to March of 2020, stage IV secondary to nephrosclerosis. 3. Right upper lobe pneumonia, maintained on antibiotics. 4. Acute exacerbation of chronic obstructive pulmonary disease. 5. Congestive heart failure, acute on top of chronic, mostly systolic. 6. Cardiomyopathy, ejection fraction 45% to 50%. PLAN: May continue with the Zaroxolyn for now. Repeat labs in a.m. Monitor electrolytes. Add Aranesp for anemia. MMODL / IJN: [id number] /
[2020-09-13] MEDS ORDERED: DARBEPOETIN ALFA 60 MCG/0.3 ML SYRINGE SQ SCH (15:00)
[2020-09-13] MEDS: traZODone HCL 50 MG TAB PO SCH (21:08)
[2020-09-14 01:05] VITALS: TEMP 97.4
[2020-09-14] MEDS ORDERED: ACETAMINOPHEN TAB 325 MG TAB PO PRN (02:55)
[2020-09-14 04:53] VITALS: BP 147/89
[2020-09-14] MEDS: carvediloL 12.5 MG TAB PO SCH (07:07)
[2020-09-14] MEDS: PANTOPRAZOLE 40 MG TABLET PO SCH (07:07)
[2020-09-14] MEDS: BUDESONIDE 1 MG/2 ML NEBU INHALATION SCH (07:18)
[2020-09-14] MEDS: IPRATROPIUM-ALBUTEROL 3 ML NEB INHALATION SCH ×2 (07:18→10:49)
[2020-09-14] MEDS: SODIUM BICARBONATE TAB 650 MG TAB PO SCH (09:29)
[2020-09-14] MEDS: guaiFENesin 600 MG TABLET.ER PO SCH (09:30)
[2020-09-14] MEDS: amLODIPine 5 MG TAB PO SCH (09:30)
[2020-09-14] MEDS: ASPIRIN 81 MG PO SCH (09:30)
[2020-09-14] MEDS: ESCITALOPRAM 10 MG TAB PO SCH (09:30)
[2020-09-14] MEDS: hydrALAZINE HCL 50 MG TAB PO SCH (09:30)
[2020-09-14] MEDS: metOLazone 5 MG TAB PO SCH (09:30)
[2020-09-14] MEDS: FLUTICASONE 50MCG/SPRAY NASAL 16GM EA NOSTRIL SCH (09:30)
[2020-09-14] MEDS: HEPARIN SODIUM,PORCINE 5,000 UNIT/ML 1 ML VIAL SQ SCH (09:31)
[2020-09-14 09:33] VITALS: RESP 19
--- NOTE | 2020-09-14 10:15 | P.DS ---
Providers Date of admission: 09/06/20 23:19 Expected date of discharge: 09/14/20 Attending physician: Giancarlo Arrieta MD Consults: 09/07/20 03:23 Consult Physician Routine Consulting Provider: Sourav Redmond Consult Reason/Comments: trigeminy, st elevation Do you want consulting provider notified?: Yes 09/07/20 05:27 Consult Physician Routine Consulting Provider: Pedro Luis Ríos Consult Reason/Comments: R hip pain Do you want consulting provider notified?: Yes 09/07/20 14:31 Consult Physician Routine Consulting Provider: Ishan Mcrae Consult Reason/Comments: Right thoracentesis Do you want consulting provider notified?: Yes 09/11/20 07:59 Consult Physician Routine Consulting Provider: Bossman Garza Consult Reason/Comments: Pt has stage IV CKD, hyperkalemia, and met acidosis Do you want consulting provider notified?: Yes Primary care physician: Kodi Isabel MD Hospital Course: Discharge Diagnosis: Acute on chronic respiratory failure with hypoxia secondary to a combination of COPD exacerbation, acute on chronic systolic CHF exacerbation, right lung pneumonia, and right lung nodules with right pleural effusion concerning for possible underlying malignancy. -Patient placed on Lasix, metolazone, and Pulmicort. -Follow up with [employer] consultant in office next week. Chronic metabolic acidosis secondary to stage IV CKD, stable -Sodium bicarbonate tablets were increased to 1300 mg BID. Acute encephalopathy secondary to administration of steroids, resolved Right hip pain likely secondary to synovitis -Home with PT/OT Thrombocytopenia, stable Hypertension, improving -Norvasc increased to 10 mg daily and hydralazine increased to 50 mg 4 times daily. Continue carvedilol as previously prescribed. 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 He was admitted under our services for acute on chronic respiratory failure with hypoxia after being transferred from [facility] for pneumonia, acute kidney injury, pleural effusion, and lung nodules. Per transfer documentation, patient underwent a CT at [facility] which showed 2 small >2 cm nodular opacities in the right lung and a moderate sized right-sided pleural effusion accompanied by right basilar atelectasis. Upon arrival to our facility, a repeat chest x-ray was obtained revealing increasing interstitial and patchy airspace disease with small right-sided pleural effusions. Pro-calcitonin was elevated at 6.87 and patient was placed on antibiotics: Azithromycin and Rocephin. Pro-BNP was significantly elevated at 34,700 and patient was treated with diuretics. Echocardiogram was completed revealing moderate concentric left ventricular hypertrophy with a preserved EF between 45 and 50% and mild pulmonary hypertension. Covid 19 PCR was negative. Pt also reported right hip pain and was found to have synovitis of proximal femur as evidenced by MRI of right hip/femur. Pt provided with symptomatic treatment and PT/OT. On 09/09/20, patient's respiratory effort increased and he was transferred to ICU for closer monitoring. At this time a repeat x-ray was completed revealing persistent areas of coarse infiltrates throughout the perihilar and basilar regions without significant change. Patient's oxygen demand has increased from 2 L O2 to 3 L O2 via nasal cannula. He was then started on steroids and scheduled nebulizer treatments. Initially patient presented with leukocytosis with WBC count of 16.90, which resolved down to 6.3. On 09/10/20 a repeat follow-up chest x-ray was completed this morning showing mild cardiomegaly with interstitial densities and patchy right greater than left airspace disease along with small layering effusions, concerns for CHF with patchy pulmonary edema. On 09/11/20 pt began to show improvement and transferred back to general medical unit, IV antibiotics completed after 7 day course on 09/12/20. Multiple medication changes made in attempts to improve chronic uncontrolled hypertension and patient started on diuretic with Lasix. Patient's condition continued to improve, he has been completely weaned off oxygen for greater than 24 hours with SpO2 maintaining at 93%. Pt to continue with ventolin inhaler as needed for SOB/Wheezing and pulmicort daily. Ambulatory pulse oximetry obtained by RN and reported to the 90% or greater throughout ambulatory session. Pt being discharged home with his son, Lg whom stated he and his will be available to monitor and assist patient 13/02. Pt being sent home with [facility], Palliative Care, and physical therapy. Physical exam: Patient was seen and fully evaluated at the bedside this morning. Patient has now been completely off of oxygen for greater than 24 hours and maintaining SpO2 at 93%. He reports feeling great and ready to go home with his son. Patient denies having any shortness of breath or chest pain at this time. Denies having any questions or concerns regarding discharge. General: non toxic, no distress, appears at stated age, very thin build. Derm: warm, dry Head: atraumatic, normocephalic, symmetric Eyes: EOMI, no lid lag, anicteric sclera Mouth: no lip lesion, mucus membranes moist, missing teeth Cardiovascular: Regular rate, regular rhythm. No murmur, positive posterior tibial pulses bilaterally, Cap refill < 2 seconds Lungs: Respirations even, regular, and unlabored on room air with SPO2 93%. His lungs were clear to auscultation this morning. He continues to show significant improvement. Abdominal: soft, nontender to palpation, no guarding, no appreciable organomegaly Ext: no gross muscle atrophy, no edema, no contractures Neuro: Speech clear, GCS 15. Pt alert and oriented to person, place and situation. No focal neuro deficits. Psych: Alert, oriented to person, place, and situation. Pleasant and appropriate affect. A total of 45 minutes of time were spent preparing this complex discharge summary. Patient Condition at Discharge: Stable Plan - Discharge Summary Discharge Rx Participant: No New Discharge Prescriptions: New hydrALAZINE HCL [Apresoline] 50 mg PO QID 30 Days #120 tab Fluticasone Nasal Montreat [Flonase Nasal Montreat] 2 spray EA NOSTRIL DAILY 30 Days #1 package Furosemide [Lasix] 40 mg PO DAILY 30 Days #30 tablet guaiFENesin [Mucinex] 1,200 mg PO Q12HR PRN #60 tablet.er PRN Reason: Nasal Congestion amLODIPine [Norvasc] 10 mg PO DAILY 30 Days #60 tab Budesonide [Pulmicort] 1 mg INHALATION RT-BID 30 Days #1 inhaler Sodium Bicarbonate Tab 1,300 mg PO BID 30 Days #120 tab Benzonatate [Tessalon Perles] 200 mg PO TID PRN 30 Days #60 cap PRN Reason: Cough metOLazone [Zaroxolyn] 2.5 mg PO DAILY 30 Days #15 tab Continue Albuterol Sulfate [Ventolin HFA] 2 puff INHALATION RT-Q4H PRN PRN Reason: Shortness Of Breath Aspirin 81 mg PO DAILY #30 chew carvediloL [Coreg] 12.5 mg PO AC-BID #60 tab Gabapentin [Neurontin] 300 mg PO TID PRN PRN Reason: Pain Ipratropium-Albuterol Nebulize [Duoneb 0.5 mg-3 mg/3 ml Soln] 3 ml INHALATION RT-QID PRN ml PRN Reason: Shortness Of Breath traZODone HCL 50 mg PO HS Escitalopram [Lexapro] 10 mg PO DAILY Discontinued Sodium Bicarbonate Tab 650 mg PO QID #120 tab hydrALAZINE HCL [Apresoline] 20 mg PO QID Discharge Medication List Albuterol Sulfate [Ventolin HFA] 2 puff INHALATION RT-Q4H PRN 04/18/20 [History] Aspirin 81 mg PO DAILY #30 chew 04/20/20 [Rx] carvediloL [Coreg] 12.5 mg PO AC-BID #60 tab 04/20/20 [Rx] Gabapentin [Neurontin] 300 mg PO TID PRN 06/18/20 [History] Ipratropium-Albuterol Nebulize [Duoneb 0.5 mg-3 mg/3 ml Soln] 3 ml INHALATION RT-QID PRN ml 06/23/20 [Rx] Escitalopram [Lexapro] 10 mg PO DAILY 09/07/20 [History] traZODone HCL 50 mg PO HS 09/07/20 [History] Benzonatate [Tessalon Perles] 200 mg PO TID PRN 30 Days #60 cap 09/14/20 [Rx] Budesonide [Pulmicort] 1 mg INHALATION RT-BID 30 Days #1 inhaler 09/14/20 [Rx] Fluticasone Nasal Montreat [Flonase Nasal Montreat] 2 spray EA NOSTRIL DAILY 30 Days #1 package 09/14/20 [Rx] Furosemide [Lasix] 40 mg PO DAILY 30 Days #30 tablet 09/14/20 [Rx] Sodium Bicarbonate Tab 1,300 mg PO BID 30 Days #120 tab 09/14/20 [Rx] amLODIPine [Norvasc] 10 mg PO DAILY 30 Days #60 tab 09/14/20 [Rx] guaiFENesin [Mucinex] 1,200 mg PO Q12HR PRN #60 tablet.er 09/14/20 [Rx] hydrALAZINE HCL [Apresoline] 50 mg PO QID 30 Days #120 tab 09/14/20 [Rx] metOLazone [Zaroxolyn] 2.5 mg PO DAILY 30 Days #15 tab 09/14/20 [Rx] Follow up Appointment(s)/Referral(s): [facility], [NON-STAFF] - 1-2 Days Kodi Isabel MD [Primary Care Provider] - 1-2 days Emeterio Claros MD [STAFF PHYSICIAN] - 1 Week Activity/Diet/Wound Care/Special Instructions: Activity: As tolerated and only with assistance. Must walk unassisted with walker at all times. Diet: Heart healthy diet Special Instructions: You are being discharged home today with your family whom stated they will be available to assist you with all of your activities of daily living including ambulation. You are being sent home with [facility] which will include palliative care as well as physical therapy services. You will need to follow up with the [employer] consultant, Dr. Claros next week and with your PCP in 2 days. Discharge Disposition: HOME WITH HOME HEALTH SERVICES
[2020-09-14 10:59] VITALS: PULSE 80
== END 2020-09-14 12:07 | disposition hospice, home (50) | DRG 682 ==
LOC: EC 21:33 → 4SSUR 23:19 → 2SICU 09-09 11:28 → 3SCARD 09-11 17:48
PROVIDERS: ADMIT Internal Medicine; ATTEND Internal Medicine
DX: N17.0 Acute kidney failure with tubular necrosis (principal); J96.21 Acute and chronic respiratory failure with hypoxia; G92 Toxic encephalopathy; I50.43 Acute on chronic combined systolic (congestive) and diastolic (congestive) heart failure; J18.9 Pneumonia, unspecified organism; J98.11 Atelectasis; E87.2 Acidosis; I13.0 Hypertensive heart and chronic kidney disease with heart failure and stage 1 through stage 4 chronic kidney disease, or unspecified chronic kidney disease; I42.9 Cardiomyopathy, unspecified; N18.4 Chronic kidney disease, stage 4 (severe); Z20.822 Contact with and (suspected) exposure to COVID-19; M65.9 Synovitis and tenosynovitis, unspecified; K57.30 Diverticulosis of large intestine without perforation or abscess without bleeding; T38.0X5A Adverse effect of glucocorticoids and synthetic analogues, initial encounter; Z51.5 Encounter for palliative care; Z66 Do not resuscitate; D63.1 Anemia in chronic kidney disease; D50.9 Iron deficiency anemia, unspecified; D69.6 Thrombocytopenia, unspecified; E78.5 Hyperlipidemia, unspecified; E87.5 Hyperkalemia; F17.210 Nicotine dependence, cigarettes, uncomplicated; F29 Unspecified psychosis not due to a substance or known physiological condition; F32.9 Major depressive disorder, single episode, unspecified; F41.9 Anxiety disorder, unspecified; G89.29 Other chronic pain; H91.90 Unspecified hearing loss, unspecified ear; I16.0 Hypertensive urgency; I25.10 Atherosclerotic heart disease of native coronary artery without angina pectoris; I25.2 Old myocardial infarction; I27.20 Pulmonary hypertension, unspecified; E11.51 Type 2 diabetes mellitus with diabetic peripheral angiopathy without gangrene; E11.65 Type 2 diabetes mellitus with hyperglycemia; J43.9 Emphysema, unspecified; J84.10 Pulmonary fibrosis, unspecified; Z79.82 Long term (current) use of aspirin; Z79.899 Other long term (current) drug therapy; Z86.73 Personal history of transient ischemic attack (TIA), and cerebral infarction without residual deficits; Z88.0 Allergy status to penicillin; Z88.2 Allergy status to sulfonamides; Z88.8 Allergy status to other drugs, medicaments and biological substances; Z95.5 Presence of coronary angioplasty implant and graft; R91.8 Other nonspecific abnormal finding of lung field; M54.9 Dorsalgia, unspecified; Z98.1 Arthrodesis status; C61 Malignant neoplasm of prostate
CPT/HCPCS: 71045; 71046; 72195; 73502; 76604; 80048; 80053; 82728; 83540; 83550; 83735; 83880; 84145; 85025; 85027; 85610; 87070; 87205; 93005; 93306; 94640; 94760; 99285